=== PATIENT | male | born 1990 | race Caucasian/White ===

== ENCOUNTER 2017-10-30 01:40 | Emergency (ER) | payer BC ==
--- NOTE | 2017-10-30 02:40 | EDPHYS ---
Physician Documentation [facility] Name: Justin Smith Age: 27 yrs Sex: Male : 1990 Arrival Date: 10/30/2017 Time: 01:42 Bed 18 Private MD: ED Physician Elia Martinez HPI: 10/30 02:20 This 27 yrs old Male presents to ER via Ambulatory with complaints of Painful jr8 Cough. 02:20 Onset: The symptoms/episode began/occurred gradually, 3 day(s) ago. Severity of jr8 symptoms: At their worst the symptoms were mild, in the emergency department the symptoms are unchanged. Modifying factors: The symptoms are alleviated by nothing, the symptoms are aggravated by nothing. Associated signs and symptoms: Pertinent positives: sore throat. The patient has not experienced similar symptoms in the past. The patient has not recently seen a physician. Historical: - Allergies: 01:56 No Known Allergies; ak1 - Home Meds: 01:56 None [Active]; ak1 - PMHx: 01:56 Kidney stones; Migraine; ak1 - PSHx: 01:56 None; ak1 - Immunization history:: Adult Immunizations unknown. - Social history:: Smoking status: Patient uses tobacco products, smokes one-half pack cigarettes per day. - Ebola Screening: : No symptoms or risks identified at this time. ROS: 02:20 Eyes: Negative for injury, pain, redness, and discharge, ENT: Negative for injury, jr8 pain, and discharge, Neck: Negative for injury, pain, and swelling, Cardiovascular: Negative for chest pain, palpitations, and edema, Abdomen/GI: Negative for abdominal pain, nausea, vomiting, diarrhea, and constipation, Back: Negative for injury and pain, MS/Extremity: Negative for injury and deformity, Skin: Negative for injury, rash, and discoloration, Neuro: Negative for headache, weakness, numbness, tingling, and seizure. 02:20 Respiratory: Positive for cough, shortness of breath, Negative for dyspnea on exertion. Exam: 02:20 Eyes: Pupils equal round and reactive to light, extra-ocular motions intact. Lids and jr8 lashes normal. Conjunctiva and sclera are non-icteric and not injected. Cornea within normal limits. Periorbital areas with no swelling, redness, or edema. ENT: Nares patent. No nasal discharge, no septal abnormalities noted. Tympanic membranes are normal and external auditory canals are clear. Oropharynx with no redness, swelling, or masses, exudates, or evidence of obstruction, uvula midline. Mucous membranes moist. Neck: Trachea midline, no thyromegaly or masses palpated, and no cervical lymphadenopathy. Supple, full range of motion without nuchal rigidity, or vertebral point tenderness. No Meningismus. Cardiovascular: Regular rate and rhythm with a normal S1 and S2. No gallops, murmurs, or rubs. Normal PMI, no JVD. No pulse deficits. Respiratory: Lungs have equal breath sounds bilaterally, clear to auscultation and percussion. No rales, rhonchi or wheezes noted. No increased work of breathing, no retractions or nasal flaring. Abdomen/GI: Soft, non-tender, with normal bowel sounds. No distension or tympany. No guarding or rebound. No evidence of tenderness throughout. Back: No spinal tenderness. No costovertebral tenderness. Full range of motion. Skin: Warm, dry with normal turgor. Normal color with no rashes, no lesions, and no evidence of cellulitis. MS/ Extremity: Pulses equal, no cyanosis. Neurovascular intact. Full, normal range of motion. Neuro: Awake and alert, GCS 15, oriented to person, place, time, and situation. Cranial nerves II-XII grossly intact. Motor strength 5/5 in all extremities. Sensory grossly intact. Cerebellar exam normal. Normal gait. Vital Signs: 01:54 BP 131 / 98; Pulse 78; Resp 20; Temp 98.1; Pulse Ox 98% on R/A; Weight 88.45 kg (R); ak1 Height 5 ft. 7 in. (170.18 cm) (R); Pain 2/10; 01:54 Body Mass Index 30.54 (88.45 kg, 170.18 cm) ak1 MDM: 01:54 Patient medically screened. jr8 02:38 Data reviewed: vital signs, nurses notes, radiologic studies, plain films, and as a jr8 result, I will discharge patient. Data interpreted: Pulse oximetry: on room air is 98 %. Interpretation: normal. Counseling: I had a detailed discussion with the patient and/or guardian regarding: the historical points, exam findings, and any diagnostic results supporting the discharge/admit diagnosis, radiology results, the need for outpatient follow up, a family practitioner, to return to the emergency department if symptoms worsen or persist or if there are any questions or concerns that arise at home. 10/30 02:14 Order name: XRAY Chest (1 view) jr8 Administered Medications: 02:50 Drug: Tussionex Pennkinetic ER 5 ml Route: PO; ao 02:50 Follow up: Response: No adverse reaction ao Disposition: 09:00 Co-signature as Attending Physician, Elia Martinez MD I agree with the assessment and [facility] plan of care. Disposition: 10/30/17 02:39 Discharged to Home. Impression: Acute laryngitis, Acute bronchitis. - Condition is Stable. - Discharge Instructions: Acute Bronchitis, Laryngitis, Upper Respiratory Infection, Adult. - Prescriptions for Prednisone 20 mg Oral Tablet - take 1 tablet by ORAL route once daily for 5 days; 5 tablet. Albuterol Sulfate 2.5 mg /3 mL (0.083 %) Inhalation Solution for Nebulization - inhale 1 unit by NEBULIZATION route every 8 hours As needed; 1 box. Guaifenesin AC 10- 100 mg/5 mL Oral Liquid - take 10 milliliter by ORAL route every 4 hours As needed; 240 milliliter. Tessalon Perles 100 mg Oral Capsule - take 1 capsule by ORAL route every 8 hours As needed; 15 capsule. - Medication Reconciliation Form, Thank You Letter, Antibiotic Education, Prescription Opioid Use, Work release form form. - Follow up: Private Physician; When: 1 week; Reason: Recheck today's complaints, Continuance of care, Re-evaluation by your physician. - Problem is new. - Symptoms have improved. Signatures: Dispatcher [employer] EDAR Elia Martinez MD MD cha Roszak, Josh, PA PA jr8 Milana Ramirez RN RN ak1 Etienne Joseph, RN RN ao Corrections: (The following items were deleted from the chart) 02:55 02:39 10/30/2017 02:39 Discharged to Home. Impression: Acute laryngitis; Acute ao bronchitis. Condition is Stable. Forms are Medication Reconciliation Form, Thank You Letter, Antibiotic Education, Prescription Opioid Use. Follow up: Private Physician; When: 1 week; Reason: Recheck today's complaints, Continuance of care, Re-evaluation by your physician. Problem is new. Symptoms have improved. jr8
--- NOTE | 2017-10-30 02:40 | ER ---
Nurse's Notes [facility] Name: Justin Smith Age: 27 yrs Sex: Male : 1990 Arrival Date: 10/30/2017 Time: 01:42 Bed 18 Private MD: Diagnosis: Acute laryngitis;Acute bronchitis Presentation: 10/30 01:54 Presenting complaint: Patient states: cough and congestion X3 days, SOB X2days ak1 increased at night. pt c/o back pain with cough. Transition of care: patient was not received from another setting of care. Onset of symptoms is unknown. Risk Assessment: Do you want to hurt yourself or someone else? Patient reports no desire to harm self or others. Initial Sepsis Screen: Does the patient meet any 2 criteria? No. Patient's initial sepsis screen is negative. Does the patient have a suspected source of infection? No. Patient's initial sepsis screen is negative. Care prior to arrival: None. 01:54 Method Of Arrival: Ambulatory ak1 01:54 Acuity: IFEANYI 3 ak1 Triage Assessment: 01:56 General: Appears in no apparent distress. Behavior is calm, cooperative. Pain: ak1 Complains of pain in back. EENT: Denies nasal congestion. Neuro: No deficits noted. Cardiovascular: No deficits noted. Respiratory: Reports shortness of breath cough that is. GI: No signs and/or symptoms were reported involving the gastrointestinal system. : No signs and/or symptoms were reported regarding the genitourinary system. Derm: No signs and/or symptoms reported regarding the dermatologic system. Historical: - Allergies: 01:56 No Known Allergies; ak1 - Home Meds: 01:56 None [Active]; ak1 - PMHx: 01:56 Kidney stones; Migraine; ak1 - PSHx: 01:56 None; ak1 - Immunization history:: Adult Immunizations unknown. - Social history:: Smoking status: Patient uses tobacco products, smokes one-half pack cigarettes per day. - Ebola Screening: : No symptoms or risks identified at this time. Screenin:02 Abuse screen: Denies threats or abuse. Denies injuries from another. Nutritional ak1 screening: No deficits noted. Tuberculosis screening: No symptoms or risk factors identified. Fall Risk None identified. Assessment: 02:15 General: Appears in no apparent distress. comfortable, Behavior is calm, cooperative, ao appropriate for age. Pain: Complains of pain in Chest from cought. Neuro: Level of Consciousness is awake, alert, obeys commands, Oriented to person, place, time, situation, Appropriate for age Moves all extremities. Full function Speech is normal, Facial symmetry appears normal. Cardiovascular: Capillary refill < 3 seconds Patient's skin is warm and dry. Respiratory: Airway is patent Respiratory effort is even, unlabored, Respiratory pattern is regular, symmetrical. GI: Abdomen is non-distended. : No signs and/or symptoms were reported regarding the genitourinary system. EENT: No signs and/or symptoms were reported regarding the EENT system. Derm: Skin is intact. Musculoskeletal: No signs and/or symptoms reported regarding the musculoskeletal system. Vital Signs: 01:54 BP 131 / 98; Pulse 78; Resp 20; Temp 98.1; Pulse Ox 98% on R/A; Weight 88.45 kg (R); ak1 Height 5 ft. 7 in. (170.18 cm) (R); Pain 2/10; 01:54 Body Mass Index 30.54 (88.45 kg, 170.18 cm) ak1 ED Course: 01:42 Patient arrived in ED. es 01:54 Manohar Gold PA is PHCP. jr8 01:54 Elia Martinez MD is Attending Physician. jr8 01:55 Triage completed. ak1 01:56 Arm band placed on Patient placed in an exam room, on a stretcher, on pulse oximetry, ak1 Patient notified of wait time. 02:02 Patient has correct armband on for positive identification. Bed in low position. Call ak1 light in reach. Side rails up X 1. Adult w/ patient. Pulse ox on. NIBP on. 02:12 Etienne Joseph, RN is Primary Nurse. ao 02:17 X-ray completed. Portable x-ray completed in exam room. Patient tolerated procedure kw well. 02:19 XRAY Chest (1 view) In Process Unspecified. EDMS Administered Medications: 02:50 Drug: Tussionex Pennkinetic ER 5 ml Route: PO; ao 02:50 Follow up: Response: No adverse reaction ao Outcome: 02:39 Discharge ordered by . jr8 02:55 Patient left the ED. ao Signatures: Dispatcher [employer] EDMS [place], Claire es Saunders, Linda kw Roszak, Manohar, PA PA jr8 Milana Ramirez, RN RN ak1 Etienne Joseph, RN RN ao
[2017-10-30] MEDS ORDERED: HYDROCODONE/CHLORPHEN 5 ML/OSYR ONE (02:45)
[2017-10-30 03:06] VITALS: BP 131/98; TEMP 98.1; O2SAT 98
--- NOTE | 2017-10-30 07:17 | RAD REPORT ---
EXAM DESCRIPTION: RAD - Chest Single View - 10/30/2017 2:20 am CLINICAL HISTORY: Cough and congestion, shortness of breath COMPARISON: June 2016 TECHNIQUE: AP portable chest image was obtained 0214 hours . FINDINGS: No failure, infiltrate or mass. Lung markings are mildly prominent but unchanged from Kle[place] h 2017. Heart and vasculature are normal. No measurable pleural effusion and no pneumothorax. No anaylei s bony abnormality seen. No acute aortic findings suspected. IMPRESSION: No acute cardiopulmonary process. No significant change from comparison.
== END 2017-10-30 02:55 | disposition home or self-care (01) ==
LOC: ER 01:40
DX: J20.9 Acute bronchitis, unspecified (principal); J04.0 Acute laryngitis; F17.210 Nicotine dependence, cigarettes, uncomplicated
CPT/HCPCS: 71045; 99283

== ENCOUNTER 2017-12-04 20:41 | Emergency (ER) | payer BC ==
[2017-12-04 21:21] LABS: Urine Blood NEGATIVE (NEG); Urine Glucose NEGATIVE (NEG); Urine Protein NEGATIVE (NEG)
[2017-12-04 21:54] LABS: Absolute Lymphocytes (CBC) 2.7 K/uL (0.7-4.9); Absolute Monocytes 0.6 K/uL (0.1-1.3); Absolute Neutrophil 5.3 K/uL (1.8-8.0); Basophils % 0.6 % (0-1.3); Eosinophils % 4.1 % (0-4.4); Hematocrit 40.5 % (39.6-49.0); MCH 31.9 pg (27.0-35.0); MCV 91.3 fL (80-100); MPV 7.5 fL (7.6-11.3); Monocytes % 6.2 % (3.3-12.3); RBC Red Blood Cell Count 4.44 M/uL (4.33-5.43)
--- NOTE | 2017-12-04 22:08 | RAD REPORT ---
EXAM DESCRIPTION: RAD - Chest Pa And Lat (2 Views) - 12/04/2017 9:43 pm CLINICAL HISTORY: Chest pain COMPARISON: October 30 TECHNIQUE: PA and lateral views of the chest were obtained. FINDINGS: The lungs are clear of a peripheral mass, consolidation or failure finding. Interstitial m arkings are prominent but similar to the comparison study. Trachea is midline. Heart size is normal and central vasculature is within normal limits. No pleural effusion or pneumothorax seen. No acut e bony finding noted. No aortic abnormality. IMPRESSION: No acute cardiopulmonary process. Prominent interstitial lung pattern similar to comparison.
[2017-12-04 22:23] LABS: Potassium 4.1 mmol/L (3.5-5.1)
--- NOTE | 2017-12-04 22:59 | EDPHYS ---
Physician Documentation [facility] Name: Justin Smith Age: 27 yrs Sex: Male : 1990 Arrival Date: 12/04/2017 Time: 20:44 Bed 24 Private MD: ED Physician Elia Martinez HPI: 12/04 21:40 This 27 yrs old Male presents to ER via Ambulatory with complaints of Chest snw Pain. 21:40 Onset: The symptoms/episode began/occurred suddenly, resolves after a few minutes, this snw is not the first time this has occurred but scared pt today second to intensity. Associated signs and symptoms: Pertinent positives: chest pain. Modifying factors: The patient symptoms are alleviated by nothing, the patient symptoms are aggravated by nothing. The patient has experienced similar episodes in the past. The patient has not recently seen a physician. Historical: - Allergies: 20:47 No Known Allergies; la1 - PMHx: 20:47 Kidney stones; Migraine; la1 - PSHx: 20:47 None; la1 - Immunization history:: Adult Immunizations up to date. - Social history:: Smoking status: Patient uses tobacco products, denies chronic smoking, but will smoke occasionally. - Ebola Screening: : No symptoms or risks identified at this time. ROS: 21:40 Constitutional: Negative for fever, chills, and weight loss, Eyes: Negative for injury, snw pain, redness, and discharge, ENT: Negative for injury, pain, and discharge, Neck: Negative for injury, pain, and swelling, Respiratory: Negative for shortness of breath, cough, wheezing, and pleuritic chest pain, Abdomen/GI: Negative for abdominal pain, nausea, vomiting, diarrhea, and constipation, Back: Negative for injury and pain, : Negative for injury, bleeding, discharge, and swelling, MS/Extremity: Negative for injury and deformity, Skin: Negative for injury, rash, and discoloration, Neuro: Negative for headache, weakness, numbness, tingling, and seizure. 21:40 Cardiovascular: Positive for chest pain, Negative for edema, orthopnea, palpitations. Exam: 21:39 Constitutional: This is a well developed, well nourished patient who is awake, alert, snw and in no acute distress. Head/Face: Normocephalic, atraumatic. Eyes: Pupils equal round and reactive to light, extra-ocular motions intact. Lids and lashes normal. Conjunctiva and sclera are non-icteric and not injected. Cornea within normal limits. Periorbital areas with no swelling, redness, or edema. ENT: Nares patent. No nasal discharge, no septal abnormalities noted. Tympanic membranes are normal and external auditory canals are clear. Oropharynx with no redness, swelling, or masses, exudates, or evidence of obstruction, uvula midline. Mucous membranes moist. Neck: Trachea midline, no thyromegaly or masses palpated, and no cervical lymphadenopathy. Supple, full range of motion without nuchal rigidity, or vertebral point tenderness. No Meningismus. Chest/axilla: Normal chest wall appearance and motion. Nontender with no deformity. No lesions are appreciated. Cardiovascular: Regular rate and rhythm with a normal S1 and S2. No gallops, murmurs, or rubs. Normal PMI, no JVD. No pulse deficits. Respiratory: Lungs have equal breath sounds bilaterally, clear to auscultation and percussion. No rales, rhonchi or wheezes noted. No increased work of breathing, no retractions or nasal flaring. Abdomen/GI: Soft, non-tender, with normal bowel sounds. No distension or tympany. No guarding or rebound. No evidence of tenderness throughout. Back: No spinal tenderness. No costovertebral tenderness. Full range of motion. Skin: Warm, dry with normal turgor. Normal color with no rashes, no lesions, and no evidence of cellulitis. MS/ Extremity: Pulses equal, no cyanosis. Neurovascular intact. Full, normal range of motion. Neuro: Awake and alert, GCS 15, oriented to person, place, time, and situation. Cranial nerves II-XII grossly intact. Motor strength 5/5 in all extremities. Sensory grossly intact. Cerebellar exam normal. Normal gait. Psych: Awake, alert, with orientation to person, place and time. Behavior, mood, and affect are within normal limits. Vital Signs: 20:47 BP 134 / 89; Pulse 87; Resp 19; Temp 98.2(TE); Pulse Ox 100% on R/A; Weight 86.18 kg; la1 Height 5 ft. 7 in. (170.18 cm); 22:01 BP 119 / 81; Pulse 79; Resp 20; Pulse Ox 97% ; rv 22:56 BP 123 / 73; Pulse 76; Resp 18; Pulse Ox 97% on R/A; rv 23:13 BP 121 / 87; Pulse 84; Resp 19; Pulse Ox 97% on R/A; rv 20:47 Body Mass Index 29.76 (86.18 kg, 170.18 cm) la1 MDM: 21:17 Patient medically screened. toño 23:00 Data reviewed: vital signs, nurses notes. Data interpreted: Pulse oximetry: on room air snw is 97 %. Interpretation: normal. Counseling: I had a detailed discussion with the patient and/or guardian regarding: the historical points, exam findings, and any diagnostic results supporting the discharge/admit diagnosis, lab results, radiology results, the need for outpatient follow up, to return to the emergency department if symptoms worsen or persist or if there are any questions or concerns that arise at home, smoking cessation. Special discussion: Based on the patient's history, exam, and Dx evaluation, there is no indication for emergent intervention or inpatient Tx. It is understood by the patient/guardian that if the Sx's persist or worsen they need to return immediately for re-evaluation. I have referred the patient to see his PCP for further evaluation of high blood pressure. Based on the history and exam findings, there is no indication for further emergent testing or inpatient evaluation. I discussed with the patient/guardian the need to see the ios architect for further evaluation of the symptoms. I discussed with the patient/guardian the need to see the primary care provider for further evaluation of the symptoms. 12/04 21:17 Order name: Urine Dipstick--Ancillary (enter results); Complete Time: 21:22 mw2 12/04 21:37 Order name: Troponin (emerg Dept Use Only) snw 12/04 21:37 Order name: CPK snw 12/04 21:37 Order name: Chem 7 snw 12/04 21:37 Order name: CBC with Diff snw 12/04 21:37 Order name: Troponin (Emerg Dept Use Only); Complete Time: 22:18 EDMS 12/04 21:15 Order name: Chest Pa And Lat (2 Views) XRAY; Complete Time: 22:11 snw 12/04 21:16 Order name: EKG; Complete Time: 21:16 snw 12/04 21:16 Order name: EKG - Nurse/Tech; Complete Time: 21:20 snw 12/04 21:37 Order name: Creatine Phosphokinase; Complete Time: 22:25 EDMS 12/04 21:37 Order name: Basic Metabolic Panel; Complete Time: 22:25 EDMS 12/04 21:37 Order name: CBC with Automated Diff; Complete Time: 22:11 EDMS Administered Medications: No medications were administered Disposition: 12/05 14:01 Co-signature as Attending Physician, Elia Martinez MD I agree with the assessment and toño plan of care. Disposition: 12/04/17 22:59 Discharged to Home. Impression: Chest pain, unspecified. - Condition is Stable. - Discharge Instructions: Nonspecific Chest Pain, Smoking Hazards. - Prescriptions for Diclofenac Sodium 75 mg Oral Tablet Sustained Release - take 1 tablet by ORAL route 2 times per day; 30 tablet. orphenadrine citrate 100 mg Oral Tablet Sustained Release - take 1 tablet by ORAL route 2 times per day As needed; 20 tablet. - Work release form, Medication Reconciliation Form, Thank You Letter, Antibiotic Education, Prescription Opioid Use form. - Follow up: Private Physician; When: 1 - 2 days; Reason: Recheck today's complaints, Continuance of care, Re-evaluation by your physician. Follow up: Emergency Department; When: As needed; Reason: Worsening of condition. Signatures: Dispatcher [employer] Elia Triplett MD MD cha Therrien, Shelly, SUPERVISOR ELECTRONICS ASSEMBLY-C SUPERVISOR ELECTRONICS ASSEMBLY-Csnw Aravind Villanueva RN RN laReinaldo Thorpe RN RN rv Corrections: (The following items were deleted from the chart) 12/04 23:30 22:59 12/04/2017 22:59 Discharged to Home. Impression: Chest pain, unspecified. rv Condition is Stable. Forms are Medication Reconciliation Form, Thank You Letter, Antibiotic Education, Prescription Opioid Use. Follow up: Private Physician; When: 1 - 2 days; Reason: Recheck today's complaints, Continuance of care, Re-evaluation by your physician. Follow up: Emergency Department; When: As needed; Reason: Worsening of condition. snw
--- NOTE | 2017-12-04 22:59 | ER ---
Nurse's Notes [facility] Name: Justin Smith Age: 27 yrs Sex: Male : 1990 Arrival Date: 12/04/2017 Time: 20:44 Bed 24 Private MD: Diagnosis: Chest pain, unspecified Presentation: 12/04 20:46 Presenting complaint: Patient states: about 3 times in the last few days I get a pain la1 in my chest that feels like some one punched me in the chest for about a minute then it goes away. Transition of care: patient was not received from another setting of care. Onset of symptoms was December 04, 2017. Risk Assessment: Do you want to hurt yourself or someone else? Patient reports no desire to harm self or others. Initial Sepsis Screen: Does the patient meet any 2 criteria? No. Patient's initial sepsis screen is negative. Does the patient have a suspected source of infection? No. Patient's initial sepsis screen is negative. Care prior to arrival: None. 20:46 Method Of Arrival: Ambulatory la1 20:46 Acuity: IFEANYI 3 la1 Historical: - Allergies: 20:47 No Known Allergies; la1 - PMHx: 20:47 Kidney stones; Migraine; la1 - PSHx: 20:47 None; la1 - Immunization history:: Adult Immunizations up to date. - Social history:: Smoking status: Patient uses tobacco products, denies chronic smoking, but will smoke occasionally. - Ebola Screening: : No symptoms or risks identified at this time. Screenin:21 Abuse screen: Denies threats or abuse. Denies injuries from another. Nutritional rv screening: No deficits noted. Tuberculosis screening: No symptoms or risk factors identified. Fall Risk None identified. Assessment: 21:20 General: Appears in no apparent distress. comfortable, Behavior is calm, cooperative. rv Pain: Complains of pain in chest Pain does not radiate. Pain began 2-3 days ago. Neuro: Level of Consciousness is awake, alert, obeys commands, Oriented to person, place, time, situation. Cardiovascular: Heart tones S1 S2 present. Respiratory: Airway is patent. GI: No signs and/or symptoms were reported involving the gastrointestinal system. : No signs and/or symptoms were reported regarding the genitourinary system. EENT: No signs and/or symptoms were reported regarding the EENT system. Derm: Skin is intact. Vital Signs: 20:47 BP 134 / 89; Pulse 87; Resp 19; Temp 98.2(TE); Pulse Ox 100% on R/A; Weight 86.18 kg; la1 Height 5 ft. 7 in. (170.18 cm); 22:01 BP 119 / 81; Pulse 79; Resp 20; Pulse Ox 97% ; rv 22:56 BP 123 / 73; Pulse 76; Resp 18; Pulse Ox 97% on R/A; rv 23:13 BP 121 / 87; Pulse 84; Resp 19; Pulse Ox 97% on R/A; rv 20:47 Body Mass Index 29.76 (86.18 kg, 170.18 cm) la1 ED Course: 20:44 Patient arrived in ED. es 20:47 Triage completed. la1 20:47 Arm band placed on right wrist. la1 21:15 [facility]augh [facility]C [facility] snw 21:15 Elia Martinez MD is Attending Physician. snw 21:20 Urine Dipstick--Ancillary (enter results) Sent. rv 21:21 Patient has correct armband on for positive identification. Placed in gown. Bed in low rv position. Call light in reach. Side rails up X 1. Adult w/ patient. traffic monitor specialist on. Pulse ox on. NIBP on. 21:22 Patient maintains SpO2 saturation greater than 95% on room air. rv 21:22 Inserted saline lock: 20 gauge in left antecubital area, using aseptic technique. rv 21:39 Patient moved to radiology via wheelchair. ml 21:39 X-ray completed. Patient tolerated procedure well. ml 21:41 Chest Pa And Lat (2 Views) XRAY In Process Unspecified. EDMS 23:13 No provider procedures requiring assistance completed. IV discontinued, bleeding rv controlled, No redness/swelling at site. Pressure dressing applied. Administered Medications: No medications were administered Outcome: 22:59 Discharge ordered by . snw 23:14 Discharged to home ambulatory. rv 23:14 Condition: good 23:14 Discharge instructions given to patient. 23:30 Patient left the ED. rv Signatures: Dispatcher [employer] EDMS Anni Baugh FNP-C ZIGZAG MACHINE OPERATOR-Csnw Claire Hughes Melissa ml Attema, Lee, RN RN la1 Reinaldo Hernnadez, RN RN rv
[2017-12-04 23:34] VITALS: TEMP 98.2
[2017-12-04 23:35] VITALS: O2SAT 97
[2017-12-04 23:38] VITALS: BP 121/87
--- NOTE | 2017-12-05 06:52 | EKG ---
Test Date: 2017-12-04 Test Time: 20:55:14 [employer] Sales Rep: MEASUREMENT RESULTS: Intervals: Rate: 82 AR: 130 QRSD: 100 QT: 356 QTc: 415 Bradshaw: P: 44 AR: 130 QRS: 56 T: 44 INTERPRETIVE STATEMENTS: Normal sinus rhythm Normal ECG Compared to ECG 07/23/2014 15:11:35 No significant changes Electronically Signed On 12-05-17 06:51:31 CDT by Edy Farfan
== END 2017-12-04 23:30 | disposition home or self-care (01) ==
LOC: ER 20:41
DX: R07.9 Chest pain, unspecified (principal)
CPT/HCPCS: 36415; 71046; 80048; 81003; 82550; 84484; 85025; 93005; 99285

== ENCOUNTER 2018-01-02 10:11 | Emergency (ER) | payer BC ==
[2018-01-02] MEDS ORDERED: NA CHLORIDE 0.9% 1,000 ML ONE (13:17)
[2018-01-02 13:22] LABS: Absolute Monocytes 0.3 K/uL (0.1-1.3); Absolute Neutrophil 4.7 K/uL (1.8-8.0); Basophils % 0.5 % (0-1.3); Eosinophils % 3.5 % (0-4.4); Hematocrit 43.2 % (39.6-49.0); Lymphocytes % 27.8 % (15.3-44.8); MCH 31.8 pg (27.0-35.0); MCV 91.2 fL (80-100); MPV 7.2 fL (7.6-11.3); Monocytes % 4.4 % (3.3-12.3); RBC Red Blood Cell Count 4.73 M/uL (4.33-5.43)
[2018-01-02 13:46] LABS: ALT/SGPT 24 U/L (12-78); AST/SGOT 17 U/L (15-37); Albumin 4.1 g/dL (3.4-5.0); Alkaline Phosphatase 91 U/L (45-117); Amylase Level 51 U/L (25-115); BUN Blood Urea Nitrogen 10 mg/dL (7-18); Bicarbonate 26 mmol/L (21-32); Bilirubin Direct 0.1 mg/dL (0-0.2); Bilirubin Total 0.7 mg/dL (0.2-1.0); Glucose Level 108 mg/dL (74-106); Lipase 126 U/L (73-393); Potassium 3.7 mmol/L (3.5-5.1); Protein, Total 7.7 g/dL (6.4-8.2); Sodium Level 140 mmol/L (136-145)
[2018-01-02 13:49] LABS: Urine Bacteria NONE SEEN /HPF (NONE SEEN); Urine Culture Reflex Order NOT NEEDED; Urine RBC NONE SEEN /HPF (NONE SEEN)
--- NOTE | 2018-01-02 14:18 | RAD REPORT ---
EXAM DESCRIPTION: CT - Abdomen Pelvis W Contrast - 01/02/2018 2:05 pm CLINICAL HISTORY: Left-sided abdominal pain, nausea and diarrhea COMPARISON: None. TECHNIQUE: Biphasic, helical CT imaging of the abdomen and pelvis was performed following 100 ml non -ionic IV contrast. No oral contrast was given. All CT scans are performed using dose optimization technique as appropriate and may include automated exposure control or mA/KV adjustment according to patient size. FINDINGS: No suspicious findings in the lung bases. The liver, spleen, and pancreas show no suspicious findings. Gallbladder and biliary tree are also wi thout suspicious finding. Symmetric renal function is seen with no hydronephrosis or suspicious renal mass. No pyelonephritis o r acute renal parenchymal process. Urinary bladder shows no suspicious findings. Prostate gland and s eminal vesicles are normal range. No dilated bowel loops or bowel wall thickening. No suspicion for appendicitis. The patient has a few small mesenteric lymph nodes present. Moderate stool volume is present in the colon. There is fluid retained within the stomach. No free air, free fluid or inflammatory stranding. No hernia, mass or b ulky lymphadenopathy. The urinary bladder is without significant finding. No adrenal abnormality. No suspicious bony findings. IMPRESSION: Contrast enhanced CT abdomen and pelvis showing no significant or suspicious finding. Nonspecific gastroenteritis is possible.
[2018-01-02 14:21] LABS: Urine Blood TRACE (NEG); Urine Glucose NEGATIVE (NEG); Urine Protein NEGATIVE (NEG); Urine Specific Gravity 1.015 (1.005-1.030); Urine pH 6.5 (5.0-7.0)
--- NOTE | 2018-01-02 14:46 | ER ---
Nurse's Notes [facility] Name: Justin Smith Age: 27 yrs Sex: Male : 1990 Arrival Date: 01/02/2018 Time: 10:13 Bed Treatment Private MD: out of town, doctor Diagnosis: Abdominal tenderness;Vomiting;Diarrhea, unspecified Presentation: 01/02 10:46 Presenting complaint: Patient states: L sided abdominal pain, nausea, and diarrhea x 3 ph days, denies vomiting or fever, states, " I have had kidney stones before but this feels different. Transition of care: patient was not received from another setting of care. Onset of symptoms was January 02, 2018. Risk Assessment: Do you want to hurt yourself or someone else? Patient reports no desire to harm self or others. Initial Sepsis Screen: Does the patient meet any 2 criteria? No. Patient's initial sepsis screen is negative. Does the patient have a suspected source of infection? No. Patient's initial sepsis screen is negative. Care prior to arrival: None. 10:46 Method Of Arrival: Ambulatory ph 10:46 Acuity: IFEANYI 3 ph Historical: - Allergies: 10:48 No Known Allergies; ph - Home Meds: 10:48 None [Active]; ph - PMHx: 10:48 Kidney stones; Migraine; ph - PSHx: 10:48 None; ph - Immunization history:: Adult Immunizations. - Social history:: Smoking status: Patient/guardian denies using tobacco. - Family history:: not pertinent. - Ebola Screening: : Patient negative for fever greater than or equal to 101.5 degrees Fahrenheit, and additional compatible Ebola Virus Disease symptoms Patient denies exposure to infectious person Patient denies travel to an Ebola-affected area in the 21 days before illness onset No symptoms or risks identified at this time. Screenin:10 Abuse screen: Denies threats or abuse. Denies injuries from another. Nutritional iw screening: No deficits noted. Tuberculosis screening: No symptoms or risk factors identified. 13:15 Fall Risk None identified. iw Assessment: 13:09 General: Appears in no apparent distress. Behavior is calm, cooperative. Pain: iw Complains of pain in left upper quadrant. Neuro: Level of Consciousness is awake, alert, obeys commands, Oriented to person, place, time, situation, Moves all extremities. Full function. Respiratory: Respiratory effort is even, unlabored. GI: Bowel sounds present X 4 quads. Abdomen is tender to palpation X 4 quads. 13:48 Reassessment: Patient appears in no apparent distress at this time. Patient and/or iw family updated on plan of care and expected duration. Pain level reassessed. Patient is alert, oriented x 3, equal unlabored respirations, skin warm/dry/pink. 14:31 Reassessment: Patient appears in no apparent distress at this time. Patient and/or iw family updated on plan of care and expected duration. Pain level reassessed. Patient is alert, oriented x 3, equal unlabored respirations, skin warm/dry/pink. Vital Signs: 10:47 BP 122 / 81; Pulse 72; Resp 16; Temp 99.0(TE); Pulse Ox 98% on R/A; Weight 86.18 kg; ph Height 5 ft. 7 in. (170.18 cm); Pain 4/10; 14:31 BP 127 / 68; Pulse 71; Resp 16; Pulse Ox 98% on R/A; Pain 0/10; iw 10:47 Body Mass Index 29.76 (86.18 kg, 170.18 cm) ph ED Course: 10:13 Patient arrived in ED. sb2 10:14 out of town, doctor is Private Physician. sb2 10:47 Triage completed. ph 10:48 Arm band placed on Patient placed in waiting room, Patient notified of wait time. ph 12:53 Temi Ott, RN is Primary Nurse. iw 12:54 Eila Martinez MD is Attending Physician. [facility] 13:09 Radiology exam delayed due to lab results not completed at this time. (BUN/Creatinine). 13:09 Initial lab(s) drawn, by ny, sent to lab. Inserted saline lock: 20 gauge in right iw antecubital area, using aseptic technique. Blood collected. 14:03 CT completed. Patient tolerated procedure well. Patient moved to CT via wheelchair. Patient moved back from CT. 14:06 CT Abd/Pelvis - W/Contrast: iv only, no oral In Process Unspecified. EDMS 14:31 Patient has correct armband on for positive identification. iw 14:55 No provider procedures requiring assistance completed. IV discontinued, intact, iw bleeding controlled, No redness/swelling at site. Pressure dressing applied. Administered Medications: 13:16 Drug: NS 0.9% 1000 ml Route: IV; Rate: 1 bolus; Site: right antecubital; iw 14:15 Follow up: IV Status: Completed infusion iw Outcome: 14:46 Discharge ordered by . toño 14:55 Discharged to home ambulatory. iw 14:55 Condition: good 14:55 Discharge instructions given to patient, Instructed on discharge instructions, follow up and referral plans. medication usage, Demonstrated understanding of instructions, follow-up care, medications, Prescriptions given X 3. 14:56 Patient left the ED. iw Signatures: Dispatcher [employer] EDUT Elia Martinez MD MD cha Jones, Temi Velázquez RN RN iw Wendie Brady RN RN Roby, Alexa gillespie2
--- NOTE | 2018-01-02 14:46 | EDPHYS ---
Physician Documentation [facility] Name: Justin Smith Age: 27 yrs Sex: Male : 1990 Arrival Date: 01/02/2018 Time: 10:13 Bed Treatment Private MD: out of town, doctor ED Physician Elia Martinez HPI: 01/02 12:59 This 27 yrs old Male presents to ER via Ambulatory with complaints of toño Abdominal Pain, Nausea. 12:59 The patient presents to the emergency department with nausea, abdominal pain, of the toño left upper quadrant. Onset: The symptoms/episode began/occurred 2 day(s) ago. Possible causes: unknown. The symptoms are aggravated by movement, pressure, The symptoms are alleviated by nothing. remaining still. Associated signs and symptoms: The patient has no apparent associated signs or symptoms. Severity of symptoms: At their worst the symptoms were mild in the emergency department the symptoms are unchanged Pain is currently a 8 / 10. Historical: - Allergies: 10:48 No Known Allergies; ph - Home Meds: 10:48 None [Active]; ph - PMHx: 10:48 Kidney stones; Migraine; ph - PSHx: 10:48 None; ph - Immunization history:: Adult Immunizations. - Social history:: Smoking status: Patient/guardian denies using tobacco. - Family history:: not pertinent. - Ebola Screening: : Patient negative for fever greater than or equal to 101.5 degrees Fahrenheit, and additional compatible Ebola Virus Disease symptoms Patient denies exposure to infectious person Patient denies travel to an Ebola-affected area in the 21 days before illness onset No symptoms or risks identified at this time. ROS: 12:59 Constitutional: Negative for fever, chills, and weight loss, Eyes: Negative for injury, toño pain, redness, and discharge, ENT: Negative for injury, pain, and discharge, Neck: Negative for injury, pain, and swelling, Cardiovascular: Negative for chest pain, palpitations, and edema, Respiratory: Negative for shortness of breath, cough, wheezing, and pleuritic chest pain, Back: Negative for injury and pain, : Negative for injury, bleeding, discharge, and swelling, MS/Extremity: Negative for injury and deformity, Skin: Negative for injury, rash, and discoloration, Neuro: Negative for headache, weakness, numbness, tingling, and seizure. 12:59 Abdomen/GI: Positive for abdominal pain, nausea, vomiting. Exam: 12:59 Constitutional: This is a well developed, well nourished patient who is awake, alert, toño and in no acute distress. Head/Face: Normocephalic, atraumatic. Eyes: Pupils equal round and reactive to light, extra-ocular motions intact. Lids and lashes normal. Conjunctiva and sclera are non-icteric and not injected. Cornea within normal limits. Periorbital areas with no swelling, redness, or edema. ENT: Nares patent. No nasal discharge, no septal abnormalities noted. Tympanic membranes are normal and external auditory canals are clear. Oropharynx with no redness, swelling, or masses, exudates, or evidence of obstruction, uvula midline. Mucous membranes moist. Neck: Trachea midline, no thyromegaly or masses palpated, and no cervical lymphadenopathy. Supple, full range of motion without nuchal rigidity, or vertebral point tenderness. No Meningismus. Chest/axilla: Normal chest wall appearance and motion. Nontender with no deformity. No lesions are appreciated. Cardiovascular: Regular rate and rhythm with a normal S1 and S2. No gallops, murmurs, or rubs. Normal PMI, no JVD. No pulse deficits. Respiratory: Lungs have equal breath sounds bilaterally, clear to auscultation and percussion. No rales, rhonchi or wheezes noted. No increased work of breathing, no retractions or nasal flaring. Back: No spinal tenderness. No costovertebral tenderness. Full range of motion. Male : Normal genitalia with no discharge or lesions. Skin: Warm, dry with normal turgor. Normal color with no rashes, no lesions, and no evidence of cellulitis. 12:59 Abdomen/GI: Inspection: abdomen appears normal, Bowel sounds: normal. 12:59 Abdomen/GI: Palpation: mild abdominal tenderness, in the left upper quadrant, Liver: no appreciated palpable abnormalities, Hernia: not appreciated. Vital Signs: 10:47 BP 122 / 81; Pulse 72; Resp 16; Temp 99.0(TE); Pulse Ox 98% on R/A; Weight 86.18 kg; ph Height 5 ft. 7 in. (170.18 cm); Pain 4/10; 14:31 BP 127 / 68; Pulse 71; Resp 16; Pulse Ox 98% on R/A; Pain 0/10; iw 10:47 Body Mass Index 29.76 (86.18 kg, 170.18 cm) ph MDM: 12:54 Patient medically screened. [facility] 13:01 Data reviewed: vital signs, nurses notes, lab test result(s), radiologic studies, CT toño scan. 01/02 12:58 Order name: Amylase, Serum; Complete Time: 14:44 [facility] 01/02 12:58 Order name: Basic Metabolic Panel; Complete Time: 14:44 [facility] 01/02 12:58 Order name: CBC with Diff; Complete Time: 13:38 [facility] 01/02 12:58 Order name: Creatinine for Radiology; Complete Time: 14:44 [facility] 01/02 12:58 Order name: Hepatic Function; Complete Time: 14:44 [facility] 01/02 12:58 Order name: Lipase; Complete Time: 14:44 [facility] 01/02 12:58 Order name: Urine Microscopic Only; Complete Time: 14:44 [facility] 01/02 12:58 Order name: IV Saline Lock; Complete Time: 13:09 [facility] 01/02 12:58 Order name: Labs collected and sent; Complete Time: 13:09 [facility] 01/02 12:58 Order name: Urine Dipstick-Ancillary (obtain specimen); Complete Time: 13:16 [facility] 01/02 12:58 Order name: CT Abd/Pelvis - W/Contrast: iv only, no oral; Complete Time: 14:44 [facility] 01/02 13:45 Order name: Urine Dipstick--Ancillary (enter results); Complete Time: 14:44 eb Administered Medications: 13:16 Drug: NS 0.9% 1000 ml Route: IV; Rate: 1 bolus; Site: right antecubital; iw 14:15 Follow up: IV Status: Completed infusion iw Disposition: 01/02/18 14:46 Discharged to Home. Impression: Abdominal tenderness, Vomiting, Diarrhea, unspecified. - Condition is Stable. - Discharge Instructions: Abdominal Pain, Adult, Food Choices to Help Relieve Diarrhea, Adult, Diarrhea, Adult, Nausea and Vomiting, Adult, Nausea and Vomiting, Adult, [id number], Abdominal Pain, Adult, Qbzs-sq-Wlet, Diarrhea, Adult, [id number]. - Prescriptions for Bentyl 20 mg Oral Tablet - take 1 tablet by ORAL route every 6 hours As needed; 20 tablet. Pepcid 20 mg Oral Tablet - take 1 tablet by ORAL route every 12 hours for 10 days; 20 tablet. Zofran 4 mg Oral Tablet - take 1 tablet by ORAL route every 12 hours As needed; 20 tablet. - Medication Reconciliation Form, Thank You Letter, Antibiotic Education, Prescription Opioid Use, Work release form form. - Follow up: Private Physician; When: 2 - 3 days; Reason: Recheck today's complaints, Continuance of care, Re-evaluation by your physician. - Problem is new. - Symptoms have improved. Signatures: Dispatcher [employer] EDMN Elia Martinez MD MD cha Williams, Irene, RN RN iw Wendie Brady RN RN ph Corrections: (The following items were deleted from the chart) 14:56 14:46 01/02/2018 14:46 Discharged to Home. Impression: Abdominal tenderness; Vomiting; iw Diarrhea, unspecified. Condition is Stable. Forms are Medication Reconciliation Form, Thank You Letter, Antibiotic Education, Prescription Opioid Use. Follow up: Private Physician; When: 2 - 3 days; Reason: Recheck today's complaints, Continuance of care, Re-evaluation by your physician. Problem is new. Symptoms have improved. toño
[2018-01-02 15:33] VITALS: TEMP 99; O2SAT 98
[2018-01-02 15:35] VITALS: BP 127/68
== END 2018-01-02 14:56 | disposition home or self-care (01) ==
LOC: ER 10:11
DX: R11.10 Vomiting, unspecified (principal); R19.7 Diarrhea, unspecified
CPT/HCPCS: 36415; 74177; 80048; 80076; 81003; 81015; 82150; 83690; 85025; 96360; 99284; J7030; Q9967

== ENCOUNTER 2018-07-09 06:41 | Emergency (ER) | payer BC ==
[2018-07-09] MEDS ORDERED: KETOROLAC 30 MG/ML INJ ONE (07:24)
[2018-07-09 08:11] LABS: Absolute Lymphocytes (CBC) 2.7 K/uL (0.7-4.9); Absolute Monocytes 0.6 K/uL (0.1-1.3); Absolute Neutrophil 5.5 K/uL (1.8-8.0); Basophils % 0.5 % (0-1.3); Eosinophils % 4.7 % (0-4.4); Hematocrit 43.5 % (39.6-49.0); MPV 7.5 fL (7.6-11.3); Monocytes % 6.4 % (3.3-12.3); RBC Red Blood Cell Count 4.74 M/uL (4.33-5.43)
[2018-07-09 08:16] LABS: BUN Blood Urea Nitrogen 13 mg/dL (7-18); Bicarbonate 25 mmol/L (21-32); Glucose Level 93 mg/dL (74-106); Potassium 3.9 mmol/L (3.5-5.1); Sodium Level 142 mmol/L (136-145)
--- NOTE | 2018-07-09 08:16 | RAD REPORT ---
EXAM DESCRIPTION: CT - Stone Protocol - 07/09/2018 7:43 am CLINICAL HISTORY: Flank pain. left flank pain, hx of stones COMPARISON: Abdomen Pelvis W Contrast dated 01/02/2018 TECHNIQUE: Axial images were obtained without oral or IV contrast. Lack of contrast limits solid org an and vascular assessment. The [id number] spans the entirety of the system partially obscuring uppermost abdomen and lung bases. Coronal reformatted images were obtained and reviewed. All CT scans are performed using dose optimization technique as appropriate and may include automated exposure control or mA/KV adjustment according to patient size. FINDINGS: The lower lung wilkerson are clear. Imaged portions of the liver and spleen show no suspicious findings on non-contrast imaging. The panc reas and adrenal glands are normal. No pathologic lymphadenopathy in the abdomen or pelvis. Bilateral nephrolithiasis is noted, the largest stone on the left inferior calyx measuring 5 mm. No u reter or bladder stones. No hydronephrosis. No bowel obstruction, free air, free fluid or abscess. Normal appendix noted. No significant bony abnormality. IMPRESSION: Bilateral nephrolithiasis without hydronephrosis.
--- NOTE | 2018-07-09 08:30 | EDPHYS ---
Physician Documentation [facility] Name: Justin Smith Age: 28 yrs Sex: Male : 1990 Arrival Date: 07/09/2018 Time: 06:46 Bed 5 Private MD: ED Physician Reed Ahn HPI: 07/09 07:08 This 28 yrs old Male presents to ER via Ambulatory with complaints of Back rn Pain. 07:08 The patient presents with pain that is acute. The symptoms are located in the left mid rn back. Onset: The symptoms/episode began/occurred last night. The pain does not radiate. Associated signs and symptoms: The patient has no apparent associated signs or symptoms, Pertinent negatives: abdominal pain, chest pain, fever, hematuria, incontinence. Modifying factors: The patient symptoms are alleviated by nothing, the patient symptoms are aggravated by nothing. Severity of symptoms: At their worst the symptoms were mild, in the emergency department the symptoms are unchanged. The patient has experienced similar episodes in the past. The patient has not recently seen a physician. Reports left flank pain, began last night, similar to previous kidney stones, reports pain not going away, no migration, no fever/hematuria/abd pain/chest pain/cough/sob.. Historical: - Allergies: 07:00 No Known Allergies; ak1 - Home Meds: 07:00 Propranolol Oral [Active]; ak1 - PMHx: 07:00 Kidney stones; Migraine; Anxiety; ak1 - PSHx: 07:00 None; ak1 - Immunization history:: Adult Immunizations unknown. - Social history:: Smoking status: Patient uses tobacco products, smokes one-half pack cigarettes per day. - Ebola Screening: : No symptoms or risks identified at this time. - Family history:: not pertinent. - Hospitalizations: : No recent hospitalization is reported. ROS: 07:08 Constitutional: Negative for fever, chills, and weight loss, Eyes: Negative for injury, rn pain, redness, and discharge, Neck: Negative for injury, pain, and swelling, Cardiovascular: Negative for chest pain, palpitations, and edema, Respiratory: Negative for shortness of breath, cough, wheezing, and pleuritic chest pain, Abdomen/GI: Negative for abdominal pain, nausea, vomiting, diarrhea, and constipation, Back: Negative for injury : Negative for injury, bleeding, discharge, and swelling, MS/Extremity: Negative for injury and deformity, Skin: Negative for injury, rash, and discoloration, Neuro: Negative for headache, weakness, numbness, tingling, and seizure. Exam: 07:08 Constitutional: This is a well developed, well nourished patient who is awake, alert, rn and in no acute distress. Legs crossed and using phone. Head/Face: Normocephalic, atraumatic. ENT: MMM Abdomen/GI: soft, non-tender Back: No spinal tenderness. No costovertebral tenderness. Full range of motion. Skin: Warm, dry MS/ Extremity: Pulses equal, no cyanosis. Neurovascular intact. Full, normal range of motion. Equal circumference. Neuro: Awake and alert, GCS 15, oriented to person, place, time, and situation. Motor strength 5/5 in all extremities. Sensory grossly intact. Vital Signs: 06:56 BP 111 / 90; Pulse 67; Resp 16; Temp 97.6(O); Pulse Ox 98% on R/A; Weight 86.18 kg (R); ak1 Height 5 ft. 7 in. (170.18 cm) (R); Pain 3/10; 06:56 Body Mass Index 29.76 (86.18 kg, 170.18 cm) ak1 MDM: 07:02 Patient medically screened. rn 08:28 Differential diagnosis: arthritis, Ureterolithiasis. Data reviewed: vital signs, nurses rn notes, lab test result(s), radiologic studies, CT scan, and as a result, I will discharge patient. Counseling: I had a detailed discussion with the patient and/or guardian regarding: the historical points, exam findings, and any diagnostic results supporting the discharge/admit diagnosis, lab results, radiology results, the need for outpatient follow up, to return to the emergency department if symptoms worsen or persist or if there are any questions or concerns that arise at home. Response to treatment: the patient's symptoms have mildly improved after treatment, and as a result, I will discharge patient. Special discussion: I discussed with the patient/guardian in detail that at this point there is no indication for admission to the hospital. It is understood, however, that if the symptoms persist or worsen the patient needs to return immediately for re-evaluation. ED course: Pt improved, bilateral non-obstructing nephrolithiasis, none in ureters, will dc home with return precautions, pain controlled. . 07/09 07:07 Order name: BMP; Complete Time: 08:19 rn 07/09 07:07 Order name: CBC with Diff; Complete Time: 08:16 rn 07/09 07:07 Order name: IV Start; Complete Time: 07:26 rn 07/09 07:07 Order name: CT Stone Protocol; Complete Time: 08:16 rn Administered Medications: 08:32 Not Given (Patient Refused): TORadol 30 mg IVP once sg Disposition: 07/09/18 08:30 Discharged to Home. Impression: Nephrolithiasis. - Condition is Stable. - Discharge Instructions: Kidney Stones, Dietary Guidelines to Help Prevent Kidney Stones. - Work release form, Medication Reconciliation Form, Thank You Letter, Antibiotic Education, Prescription Opioid Use form. - Follow up: Private Physician; When: As needed; Reason: Recheck today's complaints, Re-evaluation by your physician. - Problem is new. - Symptoms have improved. Signatures: Dispatcher [employer] EDSanty Thomson RN RN sg Reed Ahn MD MD rn Krenek, Amber RN RN ak1 Corrections: (The following items were deleted from the chart) 08:37 08:30 07/09/2018 08:30 Discharged to Home. Impression: Nephrolithiasis. Condition is sg Stable. Forms are Medication Reconciliation Form, Thank You Letter, Antibiotic Education, Prescription Opioid Use. Follow up: Private Physician; When: As needed; Reason: Recheck today's complaints, Re-evaluation by your physician. Problem is new. Symptoms have improved. rn
--- NOTE | 2018-07-09 08:30 | ER ---
Nurse's Notes [facility] Name: Justin Smith Age: 28 yrs Sex: Male : 1990 Arrival Date: 07/09/2018 Time: 06:46 Bed 5 Private MD: Diagnosis: Nephrolithiasis Presentation: 07/09 06:57 Presenting complaint: Patient states: left flank pain since last night. pt denies ak1 urinary s/s, denies N/V. Transition of care: patient was not received from another setting of care. Onset of symptoms was July 08, 2018. Risk Assessment: Do you want to hurt yourself or someone else? Patient reports no desire to harm self or others. Initial Sepsis Screen: Does the patient meet any 2 criteria? No. Patient's initial sepsis screen is negative. Does the patient have a suspected source of infection? No. Patient's initial sepsis screen is negative. Care prior to arrival: None. 06:57 Method Of Arrival: Ambulatory ak1 06:57 Acuity: IFEANYI 3 ak1 Triage Assessment: 07:00 General: Appears in no apparent distress. Behavior is calm, cooperative. Pain: ak1 Complains of pain in left flank. EENT: No signs and/or symptoms were reported regarding the EENT system. Neuro: No deficits noted. Cardiovascular: No deficits noted. Respiratory: No deficits noted. GI: No signs and/or symptoms were reported involving the gastrointestinal system. : No signs and/or symptoms were reported regarding the genitourinary system. Derm: No signs and/or symptoms reported regarding the dermatologic system. Musculoskeletal: pt c/o left flank pain. Historical: - Allergies: 07:00 No Known Allergies; ak1 - Home Meds: 07:00 Propranolol Oral [Active]; ak1 - PMHx: 07:00 Kidney stones; Migraine; Anxiety; ak1 - PSHx: 07:00 None; ak1 - Immunization history:: Adult Immunizations unknown. - Social history:: Smoking status: Patient uses tobacco products, smokes one-half pack cigarettes per day. - Ebola Screening: : No symptoms or risks identified at this time. - Family history:: not pertinent. - Hospitalizations: : No recent hospitalization is reported. Screenin:02 Abuse screen: Denies threats or abuse. Denies injuries from another. Nutritional ak1 screening: No deficits noted. Tuberculosis screening: No symptoms or risk factors identified. Fall Risk None identified. Assessment: 07:02 Reassessment: Patient appears in no apparent distress at this time. No changes from ak1 previously documented assessment. Patient and/or family updated on plan of care and expected duration. Pain level reassessed. Patient is alert, oriented x 3, equal unlabored respirations, skin warm/dry/pink. see triage assessment. 07:10 Reassessment: pt requesting we hold off on IV pain medication at this time, pt reports sg " Id like to have the CT Scan done first and know what is the matter, Rosendo diallo about pain meds.". 07:16 General: Appears in no apparent distress. Behavior is calm, cooperative, appropriate tw2 for age. Pain: Complains of pain in left low back and left mid back. Neuro: Level of Consciousness is awake, alert, obeys commands, Oriented to person, place, time, situation. Cardiovascular: Heart tones S1 S2 Patient's skin is warm and dry. Respiratory: Airway is patent Respiratory effort is even, unlabored, Respiratory pattern is regular, symmetrical, Breath sounds are clear bilaterally. GI: No signs and/or symptoms were reported involving the gastrointestinal system. : Reports pain in left flank(s). EENT: No signs and/or symptoms were reported regarding the EENT system. Derm: No signs and/or symptoms reported regarding the dermatologic system. Musculoskeletal: Circulation, motion, and sensation intact. 08:26 Reassessment: Patient appears in no apparent distress at this time. Patient is alert, sg oriented x 3, equal unlabored respirations, skin warm/dry/pink. at bedside updating pt on results at this time, continue to wait for pt to provide a urine specimen at this time, will continue to monitor. 08:29 Reassessment: pt offered pain medication again now that results have been reported, pt sg continues to refuse, awaiting dispo orders at this time. Vital Signs: 06:56 BP 111 / 90; Pulse 67; Resp 16; Temp 97.6(O); Pulse Ox 98% on R/A; Weight 86.18 kg (R); ak1 Height 5 ft. 7 in. (170.18 cm) (R); Pain 3; 06:56 Body Mass Index 29.76 (86.18 kg, 170.18 cm) ak1 ED Course: 06:46 Patient arrived in ED. es 06:55 Milana Ramirez, RN is Primary Nurse. ak1 06:58 Triage completed. ak1 07:00 Arm band placed on Patient placed in an exam room, on a stretcher, on pulse oximetry, ak1 Patient notified of wait time. 07:02 Reed Ahn MD is Attending Physician. rn 07:02 Patient has correct armband on for positive identification. Bed in low position. Call ak1 light in reach. Side rails up X 1. Pulse ox on. NIBP on. 07:10 Initial lab(s) drawn, by me, sent to lab. Inserted saline lock: 20 gauge in right sg antecubital area, using aseptic technique. Blood collected. Patient maintains SpO2 saturation greater than 95% on room air. 07:15 Primary Nurse role handed off by Milana Ramirez RN tw2 07:15 Anita Rodas RN is Primary Nurse. tw2 07:[address] Scan. sg 07:43 CT Stone Protocol In Process Unspecified. EDMS 07:47 Awaiting radiology results. sg 08:37 No provider procedures requiring assistance completed. IV discontinued, intact, tw2 bleeding controlled, No redness/swelling at site. Pressure dressing applied. Administered Medications: 08:32 Not Given (Patient Refused): TORadol 30 mg IVP once sg Outcome: 08:30 Discharge ordered by . rn 08:37 Patient left the ED. sg 08:37 Discharged to home ambulatory. tw2 08:37 Condition: stable 08:37 Discharge instructions given to patient, Instructed on discharge instructions, follow up and referral plans. Demonstrated understanding of instructions, follow-up care. Signatures: Dispatcher [employer] Santy Quinones RN RN sg Salyer, Edna es Nieto, Roman, MD MD rn Krenek, Amber, RN RN ak1 Anita Rodas RN RN tw2
[2018-07-09 08:48] VITALS: BP 111/90; TEMP 97.6; O2SAT 98
== END 2018-07-09 08:37 | disposition home or self-care (01) ==
LOC: ER 06:41
DX: N20.0 Calculus of kidney (principal); F41.9 Anxiety disorder, unspecified; F17.210 Nicotine dependence, cigarettes, uncomplicated; Z87.442 Personal history of urinary calculi
CPT/HCPCS: 36415; 74176; 76377; 80048; 85025; 99284

== ENCOUNTER 2018-08-13 10:11 | Emergency (ER) | payer BC ==
--- NOTE | 2018-08-13 12:06 | EDPHYS ---
Physician Documentation [facility] Name: Justin Smith Age: 28 yrs Sex: Male : 1990 Arrival Date: 08/13/2018 Time: 10:13 Bed 9 Private MD: out of town, doctor ED Physician Elia Martinez HPI: 08/13 12:05 This 28 yrs old Male presents to ER via Ambulatory with complaints of Flu kb Symptoms. 12:05 The patient presents with sore throat. The patient presents with dysphagia. The patient kb describes throat pain as constant. Onset: The symptoms/episode began/occurred yesterday. Severity of symptoms: At their worst the symptoms were moderate, in the emergency department the symptoms are unchanged. Modifying factors: The symptoms are alleviated by nothing, the symptoms are aggravated by swallowing, Patient's oral intake status: good. Associated signs and symptoms: Pertinent positives: fever, flu-like symptoms, malaise, Sore throat. The patient has not experienced similar symptoms in the past. The patient has not recently seen a physician. Historical: - Allergies: 10:22 No Known Allergies; ss - Home Meds: 10:22 Propranolol Oral [Active]; ss - PMHx: 10:22 Anxiety; Kidney stones; Migraine; ss - PSHx: 10:22 None; ss - Immunization history:: Adult Immunizations unknown. - Social history:: Smoking status: Patient uses tobacco products, smokes one-half pack cigarettes per day. - Ebola Screening: : Patient denies exposure to infectious person Patient denies travel to an Ebola-affected area in the 21 days before illness onset. ROS: 12:04 Neck: Negative for injury, pain, and swelling, Cardiovascular: Negative for chest pain, kb palpitations, and edema, Respiratory: Negative for shortness of breath, cough, wheezing, and pleuritic chest pain, Abdomen/GI: Negative for abdominal pain, nausea, vomiting, diarrhea, and constipation, MS/Extremity: Negative for injury and deformity, Skin: Negative for injury, rash, and discoloration, Neuro: Negative for headache, weakness, numbness, tingling, and seizure. 12:04 Constitutional: Positive for body aches, chills, fatigue, fever, malaise. 12:04 ENT: Positive for sore throat. Exam: 12:03 Constitutional: This is a well developed, well nourished patient who is awake, alert, kb and in no acute distress. Head/Face: Normocephalic, atraumatic. Neck: Trachea midline, no thyromegaly or masses palpated, and no cervical lymphadenopathy. Supple, full range of motion without nuchal rigidity, or vertebral point tenderness. No Meningismus. Chest/axilla: Normal chest wall appearance and motion. Nontender with no deformity. No lesions are appreciated. Cardiovascular: Regular rate and rhythm with a normal S1 and S2. No gallops, murmurs, or rubs. Normal PMI, no JVD. No pulse deficits. Respiratory: Lungs have equal breath sounds bilaterally, clear to auscultation and percussion. No rales, rhonchi or wheezes noted. No increased work of breathing, no retractions or nasal flaring. Abdomen/GI: Soft, non-tender, with normal bowel sounds. No distension or tympany. No guarding or rebound. No evidence of tenderness throughout. Skin: Warm, dry with normal turgor. Normal color with no rashes, no lesions, and no evidence of cellulitis. MS/ Extremity: Pulses equal, no cyanosis. Neurovascular intact. Full, normal range of motion. Neuro: Awake and alert, GCS 15, oriented to person, place, time, and situation. Cranial nerves II-XII grossly intact. Motor strength 5/5 in all extremities. Sensory grossly intact. Cerebellar exam normal. Normal gait. 12:03 ENT: External ear(s): are unremarkable, Ear canal(s): are normal, TM's: are normal, Nose: is normal, Mouth: is normal, Posterior pharynx: Airway: normal, no evidence of obstruction, Tonsils: bilaterally enlarged, with erythema, Uvula: normal, midline, swelling, that is mild, erythema, that is moderate. Vital Signs: 10:22 BP 112 / 85; Pulse 75; Resp 15; Temp 98.3(TE); Pulse Ox 98% on R/A; Weight 86.18 kg; ss Height 5 ft. 7 in. (170.18 cm); Pain 2/10; 10:22 Body Mass Index 29.76 (86.18 kg, 170.18 cm) MDM: 11:37 Patient medically screened. kb 12:02 Data reviewed: vital signs, nurses notes. Data interpreted: Pulse oximetry: on room air kb is 98 %. Interpretation: normal. Counseling: I had a detailed discussion with the patient and/or guardian regarding: the historical points, exam findings, and any diagnostic results supporting the discharge/admit diagnosis, lab results, the need for outpatient follow up, a family practitioner, to return to the emergency department if symptoms worsen or persist or if there are any questions or concerns that arise at home. 08/13 10:21 Order name: Flu; Complete Time: 11:37 kb 08/13 10:21 Order name: Strep; Complete Time: 11:43 kb Administered Medications: 12:00 Drug: Augmentin 875 mg Route: PO; iw Disposition: 15:07 Co-signature as Attending Physician, Elia Martinez MD I agree with the assessment and toño plan of care. Disposition: 08/13/18 12:06 Discharged to Home. Impression: Streptococcal pharyngitis. - Condition is Stable. - Discharge Instructions: Strep Throat, [id number]. - Prescriptions for Augmentin 875- 125 mg Oral Tablet - take 1 tablet by ORAL route every 12 hours for 10 days; 20 tablet. - Work release form, Medication Reconciliation Form, Thank You Letter, Antibiotic Education, Prescription Opioid Use form. - Follow up: Emergency Department; When: As needed; Reason: Worsening of condition. Follow up: Private Physician; When: 2 - 3 days; Reason: Recheck today's complaints, Continuance of care, Re-evaluation by your physician. Signatures: Dispatcher [employer] EDAR Hillary Luna, CLINICAL PRODUCT MANAGER-C CLINICAL PRODUCT MANAGER-Elia Galvez MD MD cha Williams, Irene, RN RN iw Smirch, Shelby, RN RN ss Corrections: (The following items were deleted from the chart) 12:13 12:06 08/13/2018 12:06 Discharged to Home. Impression: Streptococcal pharyngitis. iw Condition is Stable. Forms are Medication Reconciliation Form, Thank You Letter, Antibiotic Education, Prescription Opioid Use. Follow up: Emergency Department; When: As needed; Reason: Worsening of condition. Follow up: Private Physician; When: 2 - 3 days; Reason: Recheck today's complaints, Continuance of care, Re-evaluation by your physician. kb
--- NOTE | 2018-08-13 12:06 | ER ---
Nurse's Notes [facility] Name: Justin Smith Age: 28 yrs Sex: Male : 1990 Arrival Date: 08/13/2018 Time: 10:13 Bed 9 Private MD: out of town, doctor Diagnosis: Streptococcal pharyngitis Presentation: 08/13 10:19 Presenting complaint: Patient states: "I feel like I have something in my ears, and ss like my equilibrium is off. My body aches, my throat and nose burn like hell and I had a little fever with it." Symptoms began yesterday. Transition of care: patient was not received from another setting of care. Onset of symptoms was August 12, 2018. Risk Assessment: Do you want to hurt yourself or someone else? Patient reports no desire to harm self or others. Initial Sepsis Screen: Does the patient meet any 2 criteria? No. Patient's initial sepsis screen is negative. Does the patient have a suspected source of infection? No. Patient's initial sepsis screen is negative. Care prior to arrival: None. 10:19 Method Of Arrival: Ambulatory ss 10:19 Acuity: IFEANYI 4 ss Triage Assessment: 12:12 General: Appears in no apparent distress. Behavior is calm. iw Historical: - Allergies: 10:22 No Known Allergies; ss - Home Meds: 10:22 Propranolol Oral [Active]; ss - PMHx: 10:22 Anxiety; Kidney stones; Migraine; ss - PSHx: 10:22 None; ss - Immunization history:: Adult Immunizations unknown. - Social history:: Smoking status: Patient uses tobacco products, smokes one-half pack cigarettes per day. - Ebola Screening: : Patient denies exposure to infectious person Patient denies travel to an Ebola-affected area in the 21 days before illness onset. Screenin:00 Abuse screen: Denies threats or abuse. Denies injuries from another. Nutritional iw screening: No deficits noted. Tuberculosis screening: No symptoms or risk factors identified. Fall Risk None identified. Assessment: 11:50 General: Appears in no apparent distress. Behavior is calm, cooperative. Pain: iw Complains of pain in throat. Neuro: Level of Consciousness is awake, alert, obeys commands, Moves all extremities. Cardiovascular: Patient's skin is warm and dry. Respiratory: Respiratory effort is even, unlabored, Respiratory pattern is regular. Derm: Skin is intact, is healthy with good turgor. Musculoskeletal: Range of motion: intact in all extremities. Vital Signs: 10:22 BP 112 / 85; Pulse 75; Resp 15; Temp 98.3(TE); Pulse Ox 98% on R/A; Weight 86.18 kg; ss Height 5 ft. 7 in. (170.18 cm); Pain 2/10; 10:22 Body Mass Index 29.76 (86.18 kg, 170.18 cm) ED Course: 10:13 Patient arrived in ED. dl4 10:13 out of town, doctor is Private Physician. dl4 10:21 Triage completed. ss 10:22 Arm band placed on right wrist. ss 11:02 Strep Sent. ss 11:02 Flu Sent. ss 11:26 Temi Ott, RN is Primary Nurse. iw 11:37 Hillary Luna FNP-C [facility]. kb 11:37 Elia Martinez MD is Attending Physician. kb 11:50 Patient has correct armband on for positive identification. iw 12:10 Patient did not have IV access during this emergency room visit. iw 12:12 No provider procedures requiring assistance completed. iw Administered Medications: 12:00 Drug: Augmentin 875 mg Route: PO; iw Outcome: 12:06 Discharge ordered by . kb 12:12 Discharged to home ambulatory. iw 12:12 Condition: good 12:12 Discharge instructions given to patient, Instructed on discharge instructions, follow up and referral plans. medication usage, Demonstrated understanding of instructions, follow-up care, medications, Prescriptions given X 1. 12:13 Patient left the ED. iw Signatures: Hillary Luna FNP-C FNP-Temi Merino, RN RN Lisa Montes RN RN [place] dl4
[2018-08-13] MEDS ORDERED: AMOX/K CLAV 875 MG TAB ONE (12:17)
[2018-08-13 12:32] VITALS: BP 112/85; TEMP 98.3; O2SAT 98
== END 2018-08-13 12:13 | disposition home or self-care (01) ==
LOC: ER 10:11
DX: J02.0 Streptococcal pharyngitis (principal); F41.9 Anxiety disorder, unspecified; F17.210 Nicotine dependence, cigarettes, uncomplicated
CPT/HCPCS: 87081; 87804; 99283

== ENCOUNTER 2018-10-22 09:09 | Emergency (ER) | payer BC ==
--- NOTE | 2018-10-22 10:31 | EDPHYS ---
Physician Documentation [facility] Name: Justin Smith Age: 28 yrs Sex: Male : 1990 Arrival Date: 10/22/2018 Time: 09:12 Bed 19 Private MD: out of town, doctor ED Physician Reed Ahn HPI: 10/22 10:06 This 28 yrs old Male presents to ER via Ambulatory with complaints of Fever, kb Cough, Dizziness. 10:07 The patient or guardian reports cough, that is intermittent, described as mild, with no kb sputum, flu symptoms, low-grade fever, myalgias. Onset: The symptoms/episode began/occurred yesterday. Severity of symptoms: At their worst the symptoms were moderate, in the emergency department the symptoms are unchanged. Modifying factors: The symptoms are alleviated by nothing, the symptoms are aggravated by nothing. Associated signs and symptoms: Pertinent positives: fever, sore throat, Pertinent negatives: chest pain, diarrhea, ear ache, nausea, rhinorrhea, vomiting. The patient has not experienced similar symptoms in the past. The patient has not recently seen a physician. Pt states "I've had chills, fever (99.8 TMAX), congestion, body aches, sore throat and a bad ass cough. This all started yesterday.". Historical: - Allergies: 09:22 No Known Allergies; hj - Home Meds: 09:22 Propranolol Oral [Active]; hj - PMHx: 09:22 Anxiety; Kidney stones; Migraine; hj - PSHx: 09:22 None; hj - Immunization history:: Adult Immunizations not up to date, Flu vaccine is not up to date. - Social history:: Smoking status: Patient uses tobacco products, denies chronic smoking, but will smoke occasionally. - Ebola Screening: : Patient negative for fever greater than or equal to 101.5 degrees Fahrenheit, and additional compatible Ebola Virus Disease symptoms Patient denies exposure to infectious person Patient denies travel to an Ebola-affected area in the 21 days before illness onset. ROS: 10:06 Neck: Negative for injury, pain, and swelling, Cardiovascular: Negative for chest pain, kb palpitations, and edema, Abdomen/GI: Negative for abdominal pain, nausea, vomiting, diarrhea, and constipation, Back: Negative for injury and pain, MS/Extremity: Negative for injury and deformity, Skin: Negative for injury, rash, and discoloration, Neuro: Negative for headache, weakness, numbness, tingling, and seizure. 10:06 Constitutional: Positive for body aches, chills, fatigue, fever, malaise, Negative for poor PO intake, weight loss. 10:06 ENT: Positive for sore throat. 10:06 Respiratory: Positive for cough, Negative for dyspnea on exertion, hemoptysis, orthopnea, pleurisy, shortness of breath, sputum production, wheezing. Exam: 10:06 Constitutional: This is a well developed, well nourished patient who is awake, alert, kb and in no acute distress. Head/Face: Normocephalic, atraumatic. Eyes: Pupils equal round and reactive to light, extra-ocular motions intact. Lids and lashes normal. Conjunctiva and sclera are non-icteric and not injected. Cornea within normal limits. Periorbital areas with no swelling, redness, or edema. ENT: Nares patent. No nasal discharge, no septal abnormalities noted. Tympanic membranes are normal and external auditory canals are clear. Oropharynx with no redness, swelling, or masses, exudates, or evidence of obstruction, uvula midline. Mucous membranes moist. Neck: Trachea midline, no thyromegaly or masses palpated, and no cervical lymphadenopathy. Supple, full range of motion without nuchal rigidity, or vertebral point tenderness. No Meningismus. Chest/axilla: Normal chest wall appearance and motion. Nontender with no deformity. No lesions are appreciated. Cardiovascular: Regular rate and rhythm with a normal S1 and S2. No gallops, murmurs, or rubs. Normal PMI, no JVD. No pulse deficits. Respiratory: Lungs have equal breath sounds bilaterally, clear to auscultation and percussion. No rales, rhonchi or wheezes noted. No increased work of breathing, no retractions or nasal flaring. Abdomen/GI: Soft, non-tender, with normal bowel sounds. No distension or tympany. No guarding or rebound. No evidence of tenderness throughout. Skin: Warm, dry with normal turgor. Normal color with no rashes, no lesions, and no evidence of cellulitis. MS/ Extremity: Pulses equal, no cyanosis. Neurovascular intact. Full, normal range of motion. Neuro: Awake and alert, GCS 15, oriented to person, place, time, and situation. Cranial nerves II-XII grossly intact. Motor strength 5/5 in all extremities. Sensory grossly intact. Cerebellar exam normal. Normal gait. Vital Signs: 09:22 BP 119 / 73; Pulse 83; Resp 18; Temp 97.6(O); Pulse Ox 97% on R/A; Weight 83.91 kg; hj Height 5 ft. 7 in. (170.18 cm); 10:23 BP 100 / 74; Pulse 68; Resp 18 S; Temp 98.3(TE); Pulse Ox 99% on R/A; ca1 09:22 Body Mass Index 28.97 (83.91 kg, 170.18 cm) hj MDM: 09:32 Patient medically screened. kb 10:06 Data reviewed: vital signs, nurses notes. Data interpreted: Pulse oximetry: on room air kb is 97 %. Interpretation: normal. 10:29 Counseling: I had a detailed discussion with the patient and/or guardian regarding: the kb historical points, exam findings, and any diagnostic results supporting the discharge/admit diagnosis, lab results, the need for outpatient follow up, a family practitioner, to return to the emergency department if symptoms worsen or persist or if there are any questions or concerns that arise at home. 10/22 09:23 Order name: Strep; Complete Time: 10:24 kb 10/22 09:36 Order name: Flu; Complete Time: 10:29 kb 10/22 10:28 Order name: Throat Culture EDMS Administered Medications: No medications were administered Disposition: 10:56 Co-signature as Attending Physician, Reed Ahn MD. rn Disposition: 10/22/18 10:29 Discharged to Home. Impression: Acute upper respiratory infection, unspecified. - Condition is Stable. - Discharge Instructions: Upper Respiratory Infection, Adult, [id number], Viral Respiratory Infection, [id number]. - Medication Reconciliation Form, Thank You Letter, Antibiotic Education, Prescription Opioid Use, Work release form form. - Follow up: Emergency Department; When: As needed; Reason: Worsening of condition. Follow up: Private Physician; When: 2 - 3 days; Reason: Recheck today's complaints, Continuance of care, Re-evaluation by your physician. Signatures: Dispatcher [employer] EDMS Hillary Luna FNP-C LEAD RETAIL SALES ASSOCIATE-Ckb Reed Ahn MD MD rn Michael Walsh, RN [place] hj Rupinder Huff RN RN ca1 Corrections: (The following items were deleted from the chart) 10:08 10:07 Pt states "I've had chills, fever (99.8 TMAX), congestion, sore throat and a bad kb ass cough. This all started yesterday.". kb 10:39 10:29 10/22/2018 10:29 Discharged to Home. Impression: Acute upper respiratory ca1 infection, unspecified. Condition is Stable. Forms are Medication Reconciliation Form, Thank You Letter, Antibiotic Education, Prescription Opioid Use. Follow up: Emergency Department; When: As needed; Reason: Worsening of condition. Follow up: Private Physician; When: 2 - 3 days; Reason: Recheck today's complaints, Continuance of care, Re-evaluation by your physician. kb
--- NOTE | 2018-10-22 10:31 | ER ---
Nurse's Notes [facility] Name: Justin Smith Age: 28 yrs Sex: Male : 1990 Arrival Date: 10/22/2018 Time: 09:12 Bed 19 Private MD: out of town, doctor Diagnosis: Acute upper respiratory infection, unspecified Presentation: 10/22 09:21 Presenting complaint: Patient states: i have this on an off fever, cough and chills, hj felt dizzy as well; reports sore throat;. Transition of care: patient was not received from another setting of care. Onset of symptoms was October 22, 2018. Risk Assessment: Do you want to hurt yourself or someone else? Patient reports no desire to harm self or others. Initial Sepsis Screen: Does the patient meet any 2 criteria? No. Patient's initial sepsis screen is negative. Does the patient have a suspected source of infection? No. Patient's initial sepsis screen is negative. Care prior to arrival: None. 09:21 Method Of Arrival: Ambulatory 09:21 Acuity: IFEANYI 4 Historical: - Allergies: 09:22 No Known Allergies; - Home Meds: :22 Propranolol Oral [Active]; hj - PMHx: 09:22 Anxiety; Kidney stones; Migraine; hj - PSHx: :22 None; hj - Immunization history:: Adult Immunizations not up to date, Flu vaccine is not up to date. - Social history:: Smoking status: Patient uses tobacco products, denies chronic smoking, but will smoke occasionally. - Ebola Screening: : Patient negative for fever greater than or equal to 101.5 degrees Fahrenheit, and additional compatible Ebola Virus Disease symptoms Patient denies exposure to infectious person Patient denies travel to an Ebola-affected area in the 21 days before illness onset. Screenin:33 Abuse screen: Denies threats or abuse. Denies injuries from another. Nutritional ca1 screening: No deficits noted. Tuberculosis screening: No symptoms or risk factors identified. Fall Risk None identified. Assessment: 09:33 General: Appears in no apparent distress. comfortable, Behavior is calm, cooperative, ca1 appropriate for age. General: Reports chills for 12-24 hours, fever for. Pain: Denies pain. Neuro: Level of Consciousness is awake, alert, obeys commands, Oriented to person, place, time, situation. Respiratory: Reports cough that is productive, since yesterday Airway is patent Respiratory effort is even, unlabored, Respiratory pattern is regular, symmetrical, Sputum is green Breath sounds are clear bilaterally. EENT: Throat is pink Reports nasal congestion since yesterday nasal discharge that is green. Derm: Skin is intact, is healthy with good turgor, Skin is pink, warm \T\ dry. Musculoskeletal: Circulation, motion, and sensation intact. Capillary refill < 3 seconds, Range of motion: intact in all extremities. 10:23 Reassessment: Patient appears in no apparent distress at this time. Patient and/or ca1 family updated on plan of care and expected duration. Pain level reassessed. Patient is alert, oriented x 3, equal unlabored respirations, skin warm/dry/pink. Vital Signs: 09:22 BP 119 / 73; Pulse 83; Resp 18; Temp 97.6(O); Pulse Ox 97% on R/A; Weight 83.91 kg; hj Height 5 ft. 7 in. (170.18 cm); 10:23 BP 100 / 74; Pulse 68; Resp 18 S; Temp 98.3(TE); Pulse Ox 99% on R/A; ca1 09:22 Body Mass Index 28.97 (83.91 kg, 170.18 cm) ED Course: 09:12 Patient arrived in ED. ss 09:12 out of town, doctor is Private Physician. ss 09:13 [facility]. kb 09:13 Reed Ahn MD is Attending Physician. kb 09:22 Triage completed. hj 09:24 Arm band placed on right wrist. hj 09:25 Rupinder Huff, RN is Primary Nurse. ca1 09:33 Patient has correct armband on for positive identification. Placed in gown. Bed in low ca1 position. Call light in reach. Side rails up X 1. Pulse ox on. NIBP on. 09:33 No provider procedures requiring assistance completed. ca1 10:38 Patient did not have IV access during this emergency room visit. ca1 Administered Medications: No medications were administered Outcome: 10:29 Discharge ordered by . kb 10:38 Discharged to home ambulatory. ca1 10:38 Condition: stable 10:38 Discharge instructions given to patient, Instructed on discharge instructions, follow up and referral plans. Demonstrated understanding of instructions, follow-up care. 10:39 Patient left the ED. ca1 Signatures: Hillary Luna, Lisa Li RN RN ss Michael Walsh RN RN Rupinder Huff RN RN ca1
[2018-10-22 11:21] VITALS: BP 100/74; TEMP 98.3; O2SAT 99
== END 2018-10-22 10:39 | disposition home or self-care (01) ==
LOC: ER 09:09
DX: J06.9 Acute upper respiratory infection, unspecified (principal); F41.9 Anxiety disorder, unspecified; Z72.0 Tobacco use
CPT/HCPCS: 87070; 87081; 87804; 99283

== ENCOUNTER 2018-11-02 02:26 | Emergency (ER) | payer BC ==
[2018-11-02] MEDS ORDERED: NA CHLORIDE 0.9% 1,000 ML ONE (02:59)
[2018-11-02] MEDS ORDERED: KETOROLAC 30 MG/ML INJ ONE (02:59)
[2018-11-02 03:05] LABS: Basophils % 0.8 % (0-1.3); Eosinophils % 5.7 % (0-4.4); Hematocrit 46.1 % (39.6-49.0); Lymphocytes % 36.8 % (15.3-44.8); MPV 7.4 fL (7.6-11.3); Monocytes % 6.5 % (3.3-12.3); RBC Red Blood Cell Count 5.01 M/uL (4.33-5.43)
[2018-11-02 03:18] LABS: Potassium 3.4 mmol/L (3.5-5.1)
--- NOTE | 2018-11-02 04:02 | EDPHYS ---
Physician Documentation [facility] Name: Justin Smith Age: 28 yrs Sex: Male : 1990 Arrival Date: 11/02/2018 Time: 02:27 Bed 20 Private MD: ED Physician Kamran Steele HPI: 11/02 03:59 This 28 yrs old Male presents to ER via Wheelchair with complaints of Flank gs Pain. 03:59 The patient complains of pain in the left low back and left mid back. The pain does not gs radiate. Onset: The symptoms/episode began/occurred acutely, just prior to arrival. Modifying factors: The symptoms are alleviated by nothing. the symptoms are aggravated by nothing. Associated signs and symptoms: Pertinent positives: nausea. Severity of pain: At its worst the pain was severe in the emergency department the pain is unchanged. The patient has experienced similar episodes in the past, a few times. The patient has not recently seen a physician. Historical: - Allergies: 02:37 No Known Allergies; ak1 - Home Meds: 02:37 Propranolol Oral [Active]; ak1 - PMHx: 02:37 Anxiety; Kidney stones; Migraine; ak1 - PSHx: 02:37 None; ak1 - Immunization history:: Adult Immunizations unknown. - Social history:: Smoking status: unknown. - Ebola Screening: : No symptoms or risks identified at this time. ROS: 03:59 All other systems are negative. gs Exam: 03:59 Head/Face: Normocephalic, atraumatic. Eyes: Pupils equal round and reactive to light, gs extra-ocular motions intact. Lids and lashes normal. Conjunctiva and sclera are non-icteric and not injected. Cornea within normal limits. Periorbital areas with no swelling, redness, or edema. ENT: Nares patent. No nasal discharge, no septal abnormalities noted. Tympanic membranes are normal and external auditory canals are clear. Oropharynx with no redness, swelling, or masses, exudates, or evidence of obstruction, uvula midline. Mucous membranes moist. Neck: Trachea midline, no thyromegaly or masses palpated, and no cervical lymphadenopathy. Supple, full range of motion without nuchal rigidity, or vertebral point tenderness. No Meningismus. Chest/axilla: Normal chest wall appearance and motion. Nontender with no deformity. No lesions are appreciated. Cardiovascular: Regular rate and rhythm with a normal S1 and S2. No gallops, murmurs, or rubs. Normal PMI, no JVD. No pulse deficits. Respiratory: Lungs have equal breath sounds bilaterally, clear to auscultation and percussion. No rales, rhonchi or wheezes noted. No increased work of breathing, no retractions or nasal flaring. Abdomen/GI: Soft, non-tender, with normal bowel sounds. No distension or tympany. No guarding or rebound. No evidence of tenderness throughout. Back: No spinal tenderness. No costovertebral tenderness. Full range of motion. Skin: Warm, dry with normal turgor. Normal color with no rashes, no lesions, and no evidence of cellulitis. MS/ Extremity: Pulses equal, no cyanosis. Neurovascular intact. Full, normal range of motion. Neuro: Awake and alert, GCS 15, oriented to person, place, time, and situation. Cranial nerves II-XII grossly intact. Motor strength 5/5 in all extremities. Sensory grossly intact. Cerebellar exam normal. Normal gait. 03:59 Constitutional: The patient appears alert, awake, uncomfortable. Vital Signs: 02:36 BP 140 / 97; Pulse 95; Resp 22; Temp 98.7; Pulse Ox 100% on R/A; Weight 81.65 kg (R); ak1 Height 5 ft. 7 in. (170.18 cm) (R); Pain 10/10; 03:29 BP 120 / 79; Pulse 73; Resp 18; Pulse Ox 98% on R/A; lp1 03:36 Pain 3/10; lp1 04:00 BP 125 / 77; Pulse 75; Resp 19 S; Pulse Ox 98% on R/A; cc3 02:36 Body Mass Index 28.19 (81.65 kg, 170.18 cm) ak1 MDM: 02:39 Patient medically screened. gs 03:59 Differential diagnosis: nephrolithiasis, UTI. Data reviewed: vital signs, nurses notes, gs lab test result(s), radiologic studies. Counseling: I had a detailed discussion with the patient and/or guardian regarding: the historical points, exam findings, and any diagnostic results supporting the discharge/admit diagnosis, the presence of at least one elevated blood pressure reading (>120/80) during this emergency department visit, lab results. Response to treatment: the patient's symptoms have markedly improved after treatment, the patient's symptoms have resolved after treatment, the patient's pain is gone. Special discussion: I have referred the patient to see his PCP for further evaluation of high blood pressure. 11/02 02:29 Order name: Urine Microscopic Only 11/02 02:40 Order name: CBC with Diff 11/02 02:40 Order name: Basic Metabolic Panel 11/02 02:40 Order name: CT Stone Protocol 11/02 03:51 Order name: Urine Dipstick--Ancillary (enter results) lp1 11/02 02:29 Order name: Urine Dipstick-Ancillary (obtain specimen); Complete Time: 03:48 Administered Medications: 02:50 Drug: TORadol - Ketorolac 15 mg Route: IVP; Site: right antecubital; ak1 03:36 Follow up: Pain 07/08 Adult; Response: Marked relief of symptoms; Pain is decreased lp1 02:50 Drug: NS 0.9% 1000 ml Route: IV; Rate: 1 bolus; Site: right antecubital; ak1 04:15 Follow up: Response: No adverse reaction; IV Status: Completed infusion; IV Intake: cc3 1000ml Disposition: 11/02/18 04:01 Discharged to Home. Impression: Hydronephrosis with renal and ureteral calculous obstruction. - Condition is Stable. - Discharge Instructions: Hydronephrosis. - Prescriptions for Naprosyn 500 mg Oral Tablet - take 1 tablet by ORAL route 2 times per day As needed take with food; 30 tablet. Tylenol- Codeine #4 300-60 mg Oral Tablet - take 1 tablet by ORAL route every 6 hours As needed; 12 tablet. - Medication Reconciliation Form, Thank You Letter, Antibiotic Education, Prescription Opioid Use, Family Work Release form. - Follow up: Jose De Jesus Rodriguez MD; When: 2 - 3 days; Reason: Re-evaluation by your physician. Signatures: Dispatcher [employer] EDMilana Lew RN RN ak1 Kamran Steele MD MD gs Cordel, Charlene cc3 Natalie Dominguez RN lp1 Corrections: (The following items were deleted from the chart) 04:22 04:01 11/02/2018 04:01 Discharged to Home. Impression: Hydronephrosis with renal and cc3 ureteral calculous obstruction. Condition is Stable. Forms are Medication Reconciliation Form, Thank You Letter, Antibiotic Education, Prescription Opioid Use. Follow up: Jose De Jesus Rodriguez; When: 2 - 3 days; Reason: Re-evaluation by your physician. gs
--- NOTE | 2018-11-02 04:02 | ER ---
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 Transition of care: patient was not received from another setting of care. Onset of symptoms was November 02, 2018. Risk Assessment: Do you want to hurt yourself or someone else? Patient reports no desire to harm self or others. Initial Sepsis Screen: Does the patient meet any 2 criteria? No. Patient's initial sepsis screen is negative. Does the patient have a suspected source of infection? No. Patient's initial sepsis screen is negative. Care prior to arrival: None. 02:36 Method Of Arrival: Wheelchair ak1 02:36 Acuity: IFEANYI 3 ak1 Triage Assessment: 02:37 General: Appears uncomfortable, Behavior is cooperative, anxious. ak1 02:39 Pain: Complains of pain in left flank. ak1 Historical: - Allergies: 02:37 No Known Allergies; ak1 - Home Meds: 02:37 Propranolol Oral [Active]; ak1 - PMHx: 02:37 Anxiety; Kidney stones; Migraine; ak1 - PSHx: 02:37 None; ak1 - Immunization history:: Adult Immunizations unknown. - Social history:: Smoking status: unknown. - Ebola Screening: : No symptoms or risks identified at this time. Screenin:38 Abuse screen: Denies threats or abuse. Denies injuries from another. Nutritional ak1 screening: No deficits noted. Tuberculosis screening: No symptoms or risk factors identified. Fall Risk None identified. Assessment: 03:36 Reassessment: Patient states improved pain, 3/10 Patient states feeling better. Patient lp1 states symptoms have improved. 04:15 Reassessment: Patient appears in no apparent distress at this time. Patient and/or cc3 family updated on plan of care and expected duration. Pain level reassessed. Patient is alert, oriented x 3, equal unlabored respirations, skin warm/dry/pink. Dr. Steele discharged the patient home with prescriptions given. IV cannula removed and patient left ER vitally stable and ambulatory with his girlfriend. Patient states feeling better. Patient states symptoms have improved. Vital Signs: 02:36 BP 140 / 97; Pulse 95; Resp 22; Temp 98.7; Pulse Ox 100% on R/A; Weight 81.65 kg (R); ak1 Height 5 ft. 7 in. (170.18 cm) (R); Pain 10/10; 03:29 BP 120 / 79; Pulse 73; Resp 18; Pulse Ox 98% on R/A; lp1 03:36 Pain 3/10; lp1 04:00 BP 125 / 77; Pulse 75; Resp 19 S; Pulse Ox 98% on R/A; cc3 02:36 Body Mass Index 28.19 (81.65 kg, 170.18 cm) ak1 ED Course: 02:27 Patient arrived in ED. ag3 02:34 Kamran Steele MD is Attending Physician. gs 02:37 Triage completed. ak1 02:37 Arm band placed on Patient placed in an exam room, on a stretcher, Patient notified of ak1 wait time. 02:38 Patient has correct armband on for positive identification. Bed in low position. Call ak1 light in reach. Side rails up X 1. Pulse ox on. NIBP on. 02:40 Mikayla Jacome is Primary Nurse. cc3 03:14 CT Stone Protocol In Process Unspecified. EDMS 04:01 Jose De Jesus Rodriguez MD is Referral Physician. gs 04:15 No provider procedures requiring assistance completed. IV discontinued, intact, cc3 bleeding controlled, No redness/swelling at site. Pressure dressing applied. Administered Medications: 02:50 Drug: TORadol - Ketorolac 15 mg Route: IVP; Site: right antecubital; ak1 03:36 Follow up: Pain 3/10 Adult; Response: Marked relief of symptoms; Pain is decreased lp1 02:50 Drug: NS 0.9% 1000 ml Route: IV; Rate: 1 bolus; Site: right antecubital; ak1 04:15 Follow up: Response: No adverse reaction; IV Status: Completed infusion; IV Intake: cc3 1000ml Intake: 04:15 IV: 1000ml; Total: 1000ml. cc3 Outcome: 04:01 Discharge ordered by . gs 04:15 Discharged to home ambulatory, with friend. cc3 04:15 Condition: stable 04:15 Discharge instructions given to patient, Instructed on discharge instructions, follow up and referral plans. medication usage, Demonstrated understanding of instructions, follow-up care, medications, Prescriptions given X 2. 04:22 Patient left the ED. cc3 Signatures: Dispatcher [employer] EDMS Natalie Dominguez RN RN lp1 Milana Ramirez RN RN ak1 Kamran Steele MD MD gs Cordel, Charlene cc3 Sharlene Garcia 3
[2018-11-02 04:03] LABS: Urine Bacteria <20 /HPF (NONE SEEN); Urine Culture Reflex Order NOT NEEDED; Urine RBC 20-50 /HPF (NONE SEEN)
[2018-11-02 04:26] LABS: Urine Blood 3+ (NEG); Urine Glucose NEGATIVE (NEG); Urine Protein 1+ (NEG); Urine Specific Gravity >1.030 (1.005-1.030)
[2018-11-02 04:35] VITALS: TEMP 98.7
[2018-11-02 04:37] VITALS: O2SAT 98
[2018-11-02 04:39] VITALS: BP 125/77
--- NOTE | 2018-11-02 09:02 | RAD REPORT ---
EXAM DESCRIPTION: CT - Stone Protocol - 11/02/2018 5:29 am COMPARISON: CT abdomen pelvis July 09, 2018 CLINICAL HISTORY: Flank pain TECHNIQUE: Multiple helical axial images were obtained through the abdomen and pelvis without intrav enous contrast. Sagittal and coronal reformatted images are reviewed as well. All CT scans at this facility use dose modulation, iterative reconstruction, and/or weight-based dosi ng when appropriate to reduce radiation dose to as low as reasonably achievable. FINDINGS: Lung bases: Unremarkable. Liver: Homogenous attenuation is demonstrated. Gallbladder/biliary: Gallbladder appears unremarkable. No calcified gallstones. No evidence of biliar y ductal dilatation. Pancreas: Unremarkable. Spleen: Unremarkable. Adrenals: Unremarkable. Kidneys and ureters: There is a 5 mm stone in the proximal left ureter with mild left hydronephrosis and trace stranding near the left renal pelvis. A few punctate stones in the left kidney are present. Bladder: Unremarkable. Pelvic organs: Unremarkable. Bowel: No evidence of bowel obstruction. No bowel wall thickening. Appendix appears unremarkable. Peritoneum: No free air. No significant free fluid. Lymph nodes: Unremarkable. Vasculature: Unremarkable. Soft tissues: A small fat-containing umbilical hernia is present. Bones: Unremarkable. IMPRESSION: 1. Left-sided 5 mm stone in the proximal left ureter with mild left hydronephrosis and t race left renal peripelvic stranding. 2. Left-sided nephrolithiasis. Electronically signed by: Kavon Byrne MD 11/02/2018 3:40 AM CDT Due to temporary technical issues with the PACS/Fluency reporting system, reports are being signed by the in house radiologist as a courtesy to ensure prompt reporting. The interpreting radiologist is f ully responsible for the content of the report.
== END 2018-11-02 04:22 | disposition home or self-care (01) ==
LOC: ER 02:26
DX: N13.2 Hydronephrosis with renal and ureteral calculous obstruction (principal); F41.9 Anxiety disorder, unspecified
CPT/HCPCS: 36415; 74176; 76377; 80048; 81003; 81015; 85025; 96361; 96374; 99284; J7030

== ENCOUNTER 2018-11-02 09:08 | Emergency (ER) | payer BC ==
[2018-11-02] MEDS ORDERED: KETOROLAC 30 MG/ML INJ ONE (09:39)
[2018-11-02] MEDS ORDERED: ONDANSETRON 4 MG/2 ML VIAL ONE (09:40)
[2018-11-02] MEDS ORDERED: MORPHINE 4 MG/ML SYR ONE (09:50)
[2018-11-02] MEDS ORDERED: NA CHLORIDE 0.9% 1,000 ML ONE ×2 (09:50→10:43)
[2018-11-02 10:04] LABS: Basophils % 0.3 % (0-1.3); Eosinophils % 4.1 % (0-4.4); Hematocrit 41.9 % (39.6-49.0); Lymphocytes % 22.2 % (15.3-44.8); MPV 7.3 fL (7.6-11.3); Monocytes % 5.8 % (3.3-12.3); RBC Red Blood Cell Count 4.53 M/uL (4.33-5.43)
[2018-11-02 10:08] LABS: ALT/SGPT 25 U/L (12-78); AST/SGOT 16 U/L (15-37); Albumin 3.8 g/dL (3.4-5.0); Alkaline Phosphatase 77 U/L (45-117); BUN Blood Urea Nitrogen 10 mg/dL (7-18); Bicarbonate 23 mmol/L (21-32); Bilirubin Direct 0.1 mg/dL (0-0.2); Bilirubin Total 0.6 mg/dL (0.2-1.0); Glucose Level 102 mg/dL (74-106); Lipase 157 U/L (73-393); Potassium 4.2 mmol/L (3.5-5.1); Protein, Total 6.9 g/dL (6.4-8.2); Sodium Level 142 mmol/L (136-145)
--- NOTE | 2018-11-02 10:19 | RAD REPORT ---
EXAM DESCRIPTION: RAD - Abdomen 1 View (KUB) - 11/02/2018 9:58 am CLINICAL HISTORY: Abdomen pain. FINDINGS: The bowel gas pattern is unremarkable. 5 millimeter calculus overlies the left L4 transverse process within the proximal to mid left ureter
--- NOTE | 2018-11-02 10:27 | ER ---
Nurse's Notes [facility] Name: Justin Smith Age: 28 yrs Sex: Male : 1990 Arrival Date: 11/02/2018 Time: 09:10 Bed 8 Private MD: Diagnosis: Hydronephrosis with renal and ureteral calculous obstruction Presentation: 11/02 09:29 Presenting complaint: Patient states: was seen here last night, Ct showed 5 mm kidney iw stone on left side, still having pain. Transition of care: patient was not received from another setting of care. Onset of symptoms was November 02, 2018. Risk Assessment: Do you want to hurt yourself or someone else? Patient reports no desire to harm self or others. Initial Sepsis Screen: Does the patient meet any 2 criteria? No. Patient's initial sepsis screen is negative. Does the patient have a suspected source of infection? No. Patient's initial sepsis screen is negative. Care prior to arrival: None. 09:29 Method Of Arrival: Ambulatory iw 09:29 Acuity: IFEANYI 3 iw Historical: - Allergies: 09:30 No Known Allergies; iw - Home Meds: 09:30 Propranolol Oral once daily [Active]; iw - PMHx: 09:30 Anxiety; Kidney stones; Migraine; iw - PSHx: 09:30 None; iw - Immunization history:: Adult Immunizations not up to date. - Social history:: Smoking status: Patient uses tobacco products, smokes one pack cigarettes per day. - Ebola Screening: : Patient negative for fever greater than or equal to 101.5 degrees Fahrenheit, and additional compatible Ebola Virus Disease symptoms Patient denies exposure to infectious person Patient denies travel to an Ebola-affected area in the 21 days before illness onset No symptoms or risks identified at this time. Screenin:51 Abuse screen: Denies threats or abuse. Denies injuries from another. Nutritional ph screening: No deficits noted. Tuberculosis screening: No symptoms or risk factors identified. Fall Risk None identified. Assessment: 09:49 General: Appears in no apparent distress. uncomfortable, well groomed, Behavior is ph calm, cooperative, appropriate for age, Reports chills for 0-12 hours, Denies fever. Pain: Complains of pain in anterior aspect of left lateral abdomen and posterior aspect of left lateral abdomen Pain radiates to left lower quadrant. Neuro: Level of Consciousness is awake, alert, obeys commands, Oriented to person, place, time, situation. Cardiovascular: Capillary refill < 3 seconds in bilateral fingers Patient's skin is warm and dry. Respiratory: Airway is patent Respiratory effort is even, unlabored, Respiratory pattern is regular, symmetrical. GI: Abdomen is round non-distended, Bowel sounds present X 4 quads. Abd is soft X 4 quads Reports lower abdominal pain, Patient currently denies diarrhea, nausea, vomiting. : Reports pain in left flank(s), lower quadrant(s) Denies burning with urination, inability to void. Derm: Skin is intact, is healthy with good turgor, Skin is pink, warm \T\ dry. Musculoskeletal: Circulation, motion, and sensation intact. Range of motion: intact in all extremities. 10:58 Reassessment: Patient appears in no apparent distress at this time. Patient and/or ph family updated on plan of care and expected duration. Pain level reassessed. Patient is alert, oriented x 3, equal unlabored respirations, skin warm/dry/pink. Pt resting quietly, d/c pending completion of IV fluids. Vital Signs: 09:30 BP 137 / 96; Pulse 74; Resp 16; Temp 98.6; Pulse Ox 99% on R/A; Weight 81.65 kg; Height iw 5 ft. 7 in. (170.18 cm); Pain 8/10; 09:30 Body Mass Index 28.19 (81.65 kg, 170.18 cm) iw ED Course: 09:05 Inserted saline lock: 20 gauge in right antecubital area, using aseptic technique. ph 09:10 Patient arrived in ED. mr 09:19 Elia Martinez MD is Attending Physician. toño 09:29 Triage completed. iw 09:30 Arm band placed on. iw 09:40 Wendie Brady, GASTON is Primary Nurse. ph 09:51 Patient has correct armband on for positive identification. Bed in low position. Call ph light in reach. Side rails up X 1. Pulse ox on. NIBP on. Door closed. Noise minimized. Warm blanket given. Head of bed elevated. 09:57 X-ray completed. Patient tolerated procedure well. Patient moved back from radiology. jb2 09:57 Note: PT STATES THAT THE PAIN IS GETTING WORSE. jb2 09:58 Abdomen 1 View (KUB) XRAY In Process Unspecified. EDMS 10:25 Mayra Sandoval MD is Referral Physician. toño 10:59 No provider procedures requiring assistance completed. ph 12:09 IV discontinued, intact, bleeding controlled, No redness/swelling at site. Pressure ph dressing applied. Administered Medications: 07:30 Drug: Zofran 4 mg Route: IVP; Site: right antecubital; hb 10:57 Follow up: Response: No adverse reaction ph 09:30 Drug: TORadol 30 mg Route: IVP; Infused Over: 1 mins; Site: right antecubital; hb 09:45 Follow up: Response: No adverse reaction; Pain is decreased ph 09:40 Drug: NS 0.9% 1000 ml Route: IV; Rate: 1 bolus; Site: right antecubital; hb 10:57 Follow up: Response: No adverse reaction; IV Status: Completed infusion; IV Intake: ph 1000ml 10:10 Drug: morphine 4 mg Route: IVP; Site: right antecubital; ph 10:57 Follow up: Response: No adverse reaction; Pain is decreased ph 10:45 Drug: NS 0.9% 1000 ml Route: IV; Rate: 1 bolus; Site: right antecubital; ph 11:50 Follow up: Response: No adverse reaction; IV Status: Completed infusion; IV Intake: ph 1000ml 10:48 Drug: Flomax 0.4 mg Route: PO; ph 10:58 Follow up: Response: No adverse reaction ph 10:50 Drug: Rocephin - (cefTRIAXone) 1 grams Route: IVPB; Infused Over: 30 mins; Site: right ph antecubital; 10:57 Follow up: Response: No adverse reaction; IV Status: Completed infusion ph 11:55 Drug: fentaNYL (PF) 25 mcg Route: IVP; Site: right antecubital; ph 12:07 Follow up: Response: No adverse reaction; Pain is decreased ph Intake: 10:57 IV: 1000ml; Total: 1000ml. ph 11:50 IV: 1000ml; Total: 2000ml. ph Outcome: 10:26 Discharge ordered by . toño 12:08 Discharged to home ambulatory, with family. ph 12:08 Condition: good 12:08 Discharge instructions given to patient, family, Instructed on discharge instructions, follow up and referral plans. medication usage, Demonstrated understanding of instructions, follow-up care, medications, Prescriptions given X 4. 12:09 Patient left the ED. ph Signatures: Dispatcher [employer] EDCT Elia Martinez MD MD cha Rivera, Mary mr Burobert, Temi Peralta RN RN iw Hall, Patricia, RN RN ph Baxter, Heather, RN RN
--- NOTE | 2018-11-02 10:28 | EDPHYS ---
Physician Documentation [facility] Name: Justin Smith Age: 28 yrs Sex: Male : 1990 Arrival Date: 11/02/2018 Time: 09:10 Bed 8 Private MD: VENKAT Physician Elia Martinez HPI: 11/02 10:07 This 28 yrs old Male presents to ER via Ambulatory with complaints of toño Possible Kidney Stone. 10:07 The patient complains of pain in the left low back and left mid back. The pain does not toño radiate. Onset: The symptoms/episode began/occurred 2 day(s) ago. Modifying factors: The symptoms are alleviated by nothing. the symptoms are aggravated by nothing. Associated signs and symptoms: Pertinent positives: nausea, vomiting. Severity of pain: At its worst the pain was moderate severe in the emergency department the pain has improved mildly. The patient has experienced similar episodes in the past, a few times. Historical: - Allergies: 09:30 No Known Allergies; iw - Home Meds: 09:30 Propranolol Oral once daily [Active]; iw - PMHx: 09:30 Anxiety; Kidney stones; Migraine; iw - PSHx: 09:30 None; iw - Immunization history:: Adult Immunizations not up to date. - Social history:: Smoking status: Patient uses tobacco products, smokes one pack cigarettes per day. - Ebola Screening: : Patient negative for fever greater than or equal to 101.5 degrees Fahrenheit, and additional compatible Ebola Virus Disease symptoms Patient denies exposure to infectious person Patient denies travel to an Ebola-affected area in the 21 days before illness onset No symptoms or risks identified at this time. ROS: 10:08 Constitutional: Negative for fever, chills, and weight loss, Eyes: Negative for injury, toño pain, redness, and discharge, ENT: Negative for injury, pain, and discharge, Neck: Negative for injury, pain, and swelling, Cardiovascular: Negative for chest pain, palpitations, and edema, Respiratory: Negative for shortness of breath, cough, wheezing, and pleuritic chest pain, : Negative for injury, bleeding, discharge, and swelling, MS/Extremity: Negative for injury and deformity, Skin: Negative for injury, rash, and discoloration, Neuro: Negative for headache, weakness, numbness, tingling, and seizure, Psych: Negative for depression, anxiety, suicide ideation, homicidal ideation, and hallucinations, Allergy/Immunology: Negative for hives, rash, and allergies, Endocrine: Negative for neck swelling, polydipsia, polyuria, polyphagia, and marked weight changes, Hematologic/Lymphatic: Negative for swollen nodes, abnormal bleeding, and unusual bruising. 10:08 Abdomen/GI: Positive for abdominal pain, of the anterior aspect of left lateral abdomen and posterior aspect of left lateral abdomen. Exam: 10:08 Constitutional: This is a well developed, well nourished patient who is awake, alert, toño and in no acute distress. Head/Face: Normocephalic, atraumatic. Eyes: Pupils equal round and reactive to light, extra-ocular motions intact. Lids and lashes normal. Conjunctiva and sclera are non-icteric and not injected. Cornea within normal limits. Periorbital areas with no swelling, redness, or edema. ENT: Nares patent. No nasal discharge, no septal abnormalities noted. Tympanic membranes are normal and external auditory canals are clear. Oropharynx with no redness, swelling, or masses, exudates, or evidence of obstruction, uvula midline. Mucous membranes moist. Neck: Trachea midline, no thyromegaly or masses palpated, and no cervical lymphadenopathy. Supple, full range of motion without nuchal rigidity, or vertebral point tenderness. No Meningismus. Chest/axilla: Normal chest wall appearance and motion. Nontender with no deformity. No lesions are appreciated. Cardiovascular: Regular rate and rhythm with a normal S1 and S2. No gallops, murmurs, or rubs. Normal PMI, no JVD. No pulse deficits. Respiratory: Lungs have equal breath sounds bilaterally, clear to auscultation and percussion. No rales, rhonchi or wheezes noted. No increased work of breathing, no retractions or nasal flaring. Male : Normal genitalia with no discharge or lesions. Skin: Warm, dry with normal turgor. Normal color with no rashes, no lesions, and no evidence of cellulitis. MS/ Extremity: Pulses equal, no cyanosis. Neurovascular intact. Full, normal range of motion. Neuro: Awake and alert, GCS 15, oriented to person, place, time, and situation. Cranial nerves II-XII grossly intact. Motor strength 5/5 in all extremities. Sensory grossly intact. Cerebellar exam normal. Normal gait. Psych: Awake, alert, with orientation to person, place and time. Behavior, mood, and affect are within normal limits. 10:08 Abdomen/GI: Inspection: abdomen appears normal, Bowel sounds: normal, Palpation: abdomen is soft and non-tender, Liver: no appreciated palpable abnormalities, Hernia: not appreciated. 10:08 Back: pain, that is moderate, ROM is normal, normal spinal alignment noted, CVA toño tenderness, that is moderate, is noted on the left, muscle spasm, is not present. Vital Signs: 09:30 BP 137 / 96; Pulse 74; Resp 16; Temp 98.6; Pulse Ox 99% on R/A; Weight 81.65 kg; Height iw 5 ft. 7 in. (170.18 cm); Pain 12/08; 09:30 Body Mass Index 28.19 (81.65 kg, 170.18 cm) iw MDM: 09:19 Patient medically screened. [facility] 10:10 Data reviewed: vital signs, nurses notes, lab test result(s), EKG, radiologic studies, [facility] CT scan, plain films. 11/02 09:21 Order name: Basic Metabolic Panel; Complete Time: 10:13 [facility] 11/02 09:21 Order name: CBC with Diff; Complete Time: 10:13 [facility] 11/02 09:21 Order name: Creatinine for Radiology; Complete Time: 10:13 [facility] 11/02 09:21 Order name: Hepatic Function; Complete Time: 10:13 [facility] 11/02 09:21 Order name: Lipase; Complete Time: 10:13 [facility] 11/02 09:24 Order name: Abdomen 1 View (KUB) XRAY; Complete Time: 10:20 [facility] 11/02 09:21 Order name: IV Saline Lock; Complete Time: 09:33 [facility] 11/02 09:21 Order name: Labs collected and sent; Complete Time: 11:07 [facility] Administered Medications: 07:30 Drug: Zofran 4 mg Route: IVP; Site: right antecubital; hb 10:57 Follow up: Response: No adverse reaction ph 09:30 Drug: TORadol 30 mg Route: IVP; Infused Over: 1 mins; Site: right antecubital; hb 09:45 Follow up: Response: No adverse reaction; Pain is decreased ph 09:40 Drug: NS 0.9% 1000 ml Route: IV; Rate: 1 bolus; Site: right antecubital; hb 10:57 Follow up: Response: No adverse reaction; IV Status: Completed infusion; IV Intake: ph 1000ml 10:10 Drug: morphine 4 mg Route: IVP; Site: right antecubital; ph 10:57 Follow up: Response: No adverse reaction; Pain is decreased ph 10:45 Drug: NS 0.9% 1000 ml Route: IV; Rate: 1 bolus; Site: right antecubital; ph 11:50 Follow up: Response: No adverse reaction; IV Status: Completed infusion; IV Intake: ph 1000ml 10:48 Drug: Flomax 0.4 mg Route: PO; ph 10:58 Follow up: Response: No adverse reaction ph 10:50 Drug: Rocephin - (cefTRIAXone) 1 grams Route: IVPB; Infused Over: 30 mins; Site: right ph antecubital; 10:57 Follow up: Response: No adverse reaction; IV Status: Completed infusion ph 11:55 Drug: fentaNYL (PF) 25 mcg Route: IVP; Site: right antecubital; ph 12:07 Follow up: Response: No adverse reaction; Pain is decreased ph Disposition: 11/02/18 10:26 Discharged to Home. Impression: Hydronephrosis with renal and ureteral calculous obstruction. - Condition is Stable. - Discharge Instructions: Kidney Stones, Kidney Stones, [id number], Hydronephrosis, Dietary Guidelines to Help Prevent Kidney Stones. - Prescriptions for Tylenol- Codeine #3 300-30 mg Oral Tablet - take 2 tablet by ORAL route every 6 hours As needed; 30 tablet. Zofran 4 mg Oral Tablet - take 1 tablet by ORAL route every 12 hours As needed; 20 tablet. Flomax 0.4 mg Oral Capsule, Sust. Release 24 hr - take 1 capsule by ORAL route once daily 1/2 hour following the same meal each day; 30 capsule. Cipro 500 mg Oral Tablet - take 1 tablet by ORAL route every 12 hours for 7 days; 14 tablet. - Medication Reconciliation Form, Thank You Letter, Antibiotic Education, Prescription Opioid Use form. - Follow up: Private Physician; When: 2 - 3 days; Reason: Recheck today's complaints, Continuance of care, Re-evaluation by your physician. Follow up: Mayra Sandoval; When: 2 - 3 days; Reason: Recheck today's complaints, Re-evaluation by your physician. - Problem is new. - Symptoms have improved. Signatures: Dispatcher [employer] [facility] Elia Martinez MD MD cha Williams, Irene, GASTON FELDMAN Wendie Brady RN RN ph Baxter, Heather, GASTON FELDMAN Corrections: (The following items were deleted from the chart) 09:28 09:23 Stone Protocol+CT.RAD.BRZ ordered. [facility] 12:09 10:26 11/02/2018 10:26 Discharged to Home. Impression: Hydronephrosis with renal and ph ureteral calculous obstruction. Condition is Stable. Discharge Instructions: Kidney Stones, Kidney Stones, [id number], Hydronephrosis, Dietary Guidelines to Help Prevent Kidney Stones. Prescriptions for Tylenol-Codeine #3 300-30 mg Oral Tablet - take 2 tablet by ORAL route every 6 hours As needed; 30 tablet, Zofran 4 mg Oral Tablet - take 1 tablet by ORAL route every 12 hours As needed; 20 tablet, Flomax 0.4 mg Oral Capsule, Sust. Release 24 hr - take 1 capsule by ORAL route once daily 1/2 hour following the same meal each day; 30 capsule, Cipro 500 mg Oral Tablet - take 1 tablet by ORAL route every 12 hours for 7 days; 14 tablet. and Forms are Medication Reconciliation Form, Thank You Letter, Antibiotic Education, Prescription Opioid Use. Follow up: Private Physician; When: 2 - 3 days; Reason: Recheck today's complaints, Continuance of care, Re-evaluation by your physician. Follow up: Mayra Sandoval; When: 2 - 3 days; Reason: Recheck today's complaints, Re-evaluation by your physician. Problem is new. Symptoms have improved. toño
[2018-11-02] MEDS ORDERED: CEFTRIAXONE/SWI 1gm 1 GM/10 ML SYR ONE (10:43)
[2018-11-02] MEDS ORDERED: TAMSULOSIN 0.4 MG SR CAP ONE (10:43)
[2018-11-02] MEDS ORDERED: FENTANYL CITR 100 MCG/2 ML ONE (12:03)
[2018-11-02 12:25] VITALS: BP 137/96; TEMP 98.6; O2SAT 99
== END 2018-11-02 12:09 | disposition home or self-care (01) ==
LOC: ER 09:08
DX: N13.2 Hydronephrosis with renal and ureteral calculous obstruction (principal); F41.9 Anxiety disorder, unspecified; F17.210 Nicotine dependence, cigarettes, uncomplicated; Z87.442 Personal history of urinary calculi
CPT/HCPCS: 36415; 74018; 80048; 80076; 83690; 85025; 96361; 96374; 96375; 99284; J0696; J2405; J3010; J7030

== ENCOUNTER 2018-11-04 22:59 | Emergency (ER) | payer BC ==
[2018-11-05 00:05] LABS: Absolute Lymphocytes (CBC) 2.4 K/uL (0.7-4.9); Basophils % 0.8 % (0-1.3); Hematocrit 42.9 % (39.6-49.0); Lymphocytes % 28.9 % (15.3-44.8); MPV 7.5 fL (7.6-11.3); Monocytes % 6.2 % (3.3-12.3); RBC Red Blood Cell Count 4.66 M/uL (4.33-5.43)
[2018-11-05 00:13] LABS: Albumin 3.9 g/dL (3.4-5.0); Bilirubin Direct 0.1 mg/dL (0-0.2); Bilirubin Total 0.4 mg/dL (0.2-1.0); Protein, Total 6.9 g/dL (6.4-8.2)
[2018-11-05] MEDS ORDERED: NA CHLORIDE 0.9% 1,000 ML ONE (00:22)
[2018-11-05] MEDS ORDERED: KETOROLAC 30 MG/ML INJ ONE (00:39)
[2018-11-05] MEDS ORDERED: FENTANYL CITR 100 MCG/2 ML ONE (01:33)
--- NOTE | 2018-11-05 01:59 | EDPHYS ---
Physician Documentation [facility] Name: Justin Smith Age: 28 yrs Sex: Male : 1990 Arrival Date: 11/04/2018 Time: 23:01 Bed 24 Private MD: ED Physician Jesus Kingston HPI: 11/05 01:51 This 28 yrs old Male presents to ER via Wheelchair with complaints of Flank snw Pain. 01:51 The patient complains of pain in the left low back. The pain does not radiate. Onset: snw The symptoms/episode began/occurred 1 week(s) ago, and became persistent. Associated signs and symptoms: Pertinent positives: nausea. Severity of pain: At its worst the pain was moderate severe. The patient has not experienced similar symptoms in the past. The patient has been recently seen by a physician: The patient has been recently seen at the [facility] Emergency Department, for similar complaints labs were performed, X-rays were performed, CT scan was performed, to f/u Dr. Jaime latham, has not had opportunity to f/u. Historical: - Allergies: 11/04 23:04 No Known Allergies; la1 - Home Meds: 23:36 Propranolol Oral once daily [Active]; ak1 - PMHx: 23:04 Anxiety; Kidney stones; Migraine; la1 - PSHx: 23:36 None; ak1 - Immunization history:: Adult Immunizations up to date. - Social history:: Smoking status: Patient uses tobacco products, smokes one-half pack cigarettes per day. - Ebola Screening: : No symptoms or risks identified at this time. ROS: 11/05 01:50 Constitutional: Negative for fever, chills, and weight loss, Eyes: Negative for injury, snw pain, redness, and discharge, ENT: Negative for injury, pain, and discharge, Neck: Negative for injury, pain, and swelling, Cardiovascular: Negative for chest pain, palpitations, and edema, Respiratory: Negative for shortness of breath, cough, wheezing, and pleuritic chest pain, Abdomen/GI: Negative for abdominal pain, nausea, vomiting, diarrhea, and constipation, Back: Negative for injury. Left flank pain : Negative for injury, bleeding, discharge, and swelling, MS/Extremity: Negative for injury and deformity, Skin: Negative for injury, rash, and discoloration, Neuro: Negative for headache, weakness, numbness, tingling, and seizure, Psych: Negative for depression, anxiety, suicide ideation, homicidal ideation, and hallucinations. Exam: 01:50 Constitutional: This is a well developed, well nourished patient who is awake, alert, snw and in no acute distress. Head/Face: Normocephalic, atraumatic. Eyes: Pupils equal round and reactive to light, extra-ocular motions intact. Lids and lashes normal. Conjunctiva and sclera are non-icteric and not injected. Cornea within normal limits. Periorbital areas with no swelling, redness, or edema. ENT: Nares patent. No nasal discharge, no septal abnormalities noted. Tympanic membranes are normal and external auditory canals are clear. Oropharynx with no redness, swelling, or masses, exudates, or evidence of obstruction, uvula midline. Mucous membranes moist. Neck: Trachea midline, no thyromegaly or masses palpated, and no cervical lymphadenopathy. Supple, full range of motion without nuchal rigidity, or vertebral point tenderness. No Meningismus. Chest/axilla: Normal chest wall appearance and motion. Nontender with no deformity. No lesions are appreciated. Cardiovascular: Regular rate and rhythm with a normal S1 and S2. No gallops, murmurs, or rubs. Normal PMI, no JVD. No pulse deficits. Respiratory: Lungs have equal breath sounds bilaterally, clear to auscultation and percussion. No rales, rhonchi or wheezes noted. No increased work of breathing, no retractions or nasal flaring. Abdomen/GI: Soft, non-tender, with normal bowel sounds. No distension or tympany. No guarding or rebound. No evidence of tenderness throughout. Back: No spinal tenderness. No costovertebral tenderness. Full range of motion. Skin: Warm, dry with normal turgor. Normal color with no rashes, no lesions, and no evidence of cellulitis. MS/ Extremity: Pulses equal, no cyanosis. Neurovascular intact. Full, normal range of motion. Neuro: Awake and alert, GCS 15, oriented to person, place, time, and situation. Cranial nerves II-XII grossly intact. Motor strength 5/5 in all extremities. Sensory grossly intact. Cerebellar exam normal. Normal gait. Psych: Awake, alert, with orientation to person, place and time. Behavior, mood, and affect are within normal limits. Vital Signs: 11/04 23:04 BP 148 / 98; Pulse 78; Resp 16; Temp 98.1; Pulse Ox 98% on R/A; Weight 83.91 kg; Height la1 5 ft. 7 in. (170.18 cm); Pain 8/10; 23:32 BP 130 / 83; Pulse 71; Resp 16; Pulse Ox 98% on R/A; ak1 11/05 02:29 BP 124 / 90; Pulse 71; Resp 16; Temp 98.3; Pulse Ox 98% on R/A; Pain 4/10; ak1 11/04 23:04 Body Mass Index 28.97 (83.91 kg, 170.18 cm) la1 MDM: 11/04 23:31 Patient medically screened. mt 11/05 02:01 Data reviewed: vital signs, nurses notes. Data interpreted: Pulse oximetry: on room air snw is 98 %. Interpretation: normal. Counseling: I had a detailed discussion with the patient and/or guardian regarding: the historical points, exam findings, and any diagnostic results supporting the discharge/admit diagnosis, lab results, radiology results, the need for outpatient follow up, to return to the emergency department if symptoms worsen or persist or if there are any questions or concerns that arise at home. Special discussion: Based on the patient's Hx, exam, and Dx evaluation, there is no indication for emergent surgery or inpatient Tx. It is understood by the patient/guardian that if the Sx's persist or worsen they need to return immediately for re-evaluation. Based on the history and exam findings, there is no indication for further emergent testing or inpatient evaluation. I discussed with the patient/guardian the need to see the primary care provider for further evaluation of the symptoms. I discussed with the patient/guardian the need to see the urologist for further evaluation of the symptoms. 11/04 23:31 Order name: Basic Metabolic Panel snw 11/04 23:31 Order name: CBC with Diff; Complete Time: 00:42 snw 11/04 23:31 Order name: Creatinine for Radiology; Complete Time: 00:12 snw 11/04 23:31 Order name: Hepatic Function; Complete Time: 00:42 snw 11/04 23:31 Order name: Lipase; Complete Time: 00:42 snw 11/04 23:33 Order name: Basic Metabolic Panel; Complete Time: 00:42 EDMS 11/04 23:31 Order name: Abdomen 1 View (KUB) XRAY snw 11/04 23:31 Order name: IV Saline Lock; Complete Time: 23:47 snw 11/04 23:31 Order name: Labs collected and sent; Complete Time: 23:47 snw Administered Medications: 00:14 Drug: NS 0.9% 1000 ml Route: IV; Rate: 1 bolus; Site: right antecubital; ak1 00:57 Follow up: IV Status: Completed infusion; IV Intake: 1000ml ak1 00:27 Drug: TORadol - Ketorolac 15 mg Route: IVP; Site: right antecubital; ak1 00:58 Follow up: Response: No adverse reaction ak1 01:24 Drug: fentaNYL (PF) 25 mcg Route: IVP; Site: right antecubital; 02:17 Follow up: Response: No adverse reaction; Pain is decreased ak1 Disposition: 11/05/18 01:57 Discharged to Home. Impression: Unspecified renal colic, Kidney stones. - Condition is Stable. - Discharge Instructions: Kidney Stones, Renal Colic, Dietary Guidelines to Help Prevent Kidney Stones, Rehydration, Adult. - Prescriptions for Ultram 50 mg Oral Tablet - take 1 tablet by ORAL route every 6 hours As needed; 12 tablet. - Work release form, Medication Reconciliation Form, Thank You Letter, Antibiotic Education, Prescription Opioid Use form. - Follow up: Mayra Sandoval MD; When: 1 - 2 days; Reason: Recheck today's complaints, Continuance of care. - Problem is an ongoing problem. - Symptoms have improved. Signatures: Dispatcher [employer] EDHaley Aparicio, Anni Chauhan RN, ch, MID LEVEL BUSINESS ANALYST-C MID LEVEL BUSINESS ANALYST-Csnw Aravind Villanueva RN RN la1 Krenek, Amber, RN RN [email or web address] Jesus Kingston MD MD wa Corrections: (The following items were deleted from the chart) 02:30 01:57 11/05/2018 01:57 Discharged to Home. Impression: Unspecified renal colic; Kidney ak1 stones. Condition is Stable. Forms are Medication Reconciliation Form, Thank You Letter, Antibiotic Education, Prescription Opioid Use. Follow up: Mayra Sandoval; When: 1 - 2 days; Reason: Recheck today's complaints, Continuance of care. Problem is an ongoing problem. Symptoms have improved. snw
--- NOTE | 2018-11-05 01:59 | ER ---
Nurse's Notes [facility] Name: Justin Smith Age: 28 yrs Sex: Male : 1990 Arrival Date: 11/04/2018 Time: 23:01 Bed 24 Private MD: Diagnosis: Unspecified renal colic;Kidney stones Presentation: 11/04 23:03 Presenting complaint: Patient states: I have a 5mm left kidney stone and the pain is la1 unbearable, denies fever or vomiting. Transition of care: patient was not received from another setting of care. Onset of symptoms was November 04, 2018. Risk Assessment: Do you want to hurt yourself or someone else? Patient reports no desire to harm self or others. Initial Sepsis Screen: Does the patient meet any 2 criteria? No. Patient's initial sepsis screen is negative. Does the patient have a suspected source of infection? No. Patient's initial sepsis screen is negative. Care prior to arrival: None. 23:03 Method Of Arrival: Wheelchair la1 23:03 Acuity: IFEANYI 3 la1 Historical: - Allergies: 23:04 No Known Allergies; la1 - Home Meds: 23:36 Propranolol Oral once daily [Active]; ak1 - PMHx: 23:04 Anxiety; Kidney stones; Migraine; la1 - PSHx: 23:36 None; ak1 - Immunization history:: Adult Immunizations up to date. - Social history:: Smoking status: Patient uses tobacco products, smokes one-half pack cigarettes per day. - Ebola Screening: : No symptoms or risks identified at this time. Screenin:32 Abuse screen: Denies threats or abuse. Denies injuries from another. Nutritional ak1 screening: No deficits noted. Tuberculosis screening: No symptoms or risk factors identified. Fall Risk None identified. Assessment: 23:33 General: Appears in no apparent distress. uncomfortable, Behavior is anxious. Pain: ak1 Complains of pain in flank pain. Neuro: No deficits noted. Cardiovascular: No deficits noted. Respiratory: No deficits noted. GI: No signs and/or symptoms were reported involving the gastrointestinal system. : Reports pain flank(s), pt seen in ER 2 other occasions this week for same s/s. EENT: No signs and/or symptoms were reported regarding the EENT system. Derm: No signs and/or symptoms reported regarding the dermatologic system. Musculoskeletal: No signs and/or symptoms reported regarding the musculoskeletal system. 11/05 00:15 Reassessment: pt requesting Toradol, ERP notified with verbal orders to wait for kidney ak1 function labs to result. pt informed of wait for kidney function labs is 10 minuets per Eugenio in the lab. 02:29 Reassessment: Patient appears in no apparent distress at this time. No changes from ak1 previously documented assessment. Patient and/or family updated on plan of care and expected duration. Pain level reassessed. Patient is alert, oriented x 3, equal unlabored respirations, skin warm/dry/pink. Patient states feeling better. Patient states symptoms have improved. Vital Signs: 11/04 23:04 BP 148 / 98; Pulse 78; Resp 16; Temp 98.1; Pulse Ox 98% on R/A; Weight 83.91 kg; Height la1 5 ft. 7 in. (170.18 cm); Pain 8/10; 23:32 BP 130 / 83; Pulse 71; Resp 16; Pulse Ox 98% on R/A; ak1 11/05 02:29 BP 124 / 90; Pulse 71; Resp 16; Temp 98.3; Pulse Ox 98% on R/A; Pain 4/10; ak1 11/04 23:04 Body Mass Index 28.97 (83.91 kg, 170.18 cm) la1 ED Course: 11/04 23:01 Patient arrived in ED. am2 23:04 Triage completed. la1 23:05 Arm band placed on left wrist. la1 23:13 Bed in low position. Call light in reach. Side rails up X 1. Side rails up X2. Warm jp3 blanket given. Verbal reassurance given. Pulse ox on. NIBP on. 23:30 Milana Ramirez, RN is Primary Nurse. ak1 23:31 Jesus Kingston MD is Attending Physician. wa 23:32 [facility]augh [facility]-C [facility]. snw 23:40 Initial lab(s) drawn, by me, sent to lab. Inserted saline lock: 20 gauge in right jp3 antecubital area, using aseptic technique. Blood collected. 23:47 Basic Metabolic Panel Sent. jp3 23:47 CBC with Diff Sent. jp3 23:47 Creatinine for Radiology Sent. jp3 23:47 Hepatic Function Sent. jp3 23:47 Lipase Sent. jp3 11/05 00:26 Abdomen 1 View (KUB) XRAY In Process Unspecified. EDMS 01:52 Mayra Sandoval MD is Referral Physician. snw 02:17 No provider procedures requiring assistance completed. IV discontinued, intact, ak1 bleeding controlled, No redness/swelling at site. Pressure dressing applied. Administered Medications: 00:14 Drug: NS 0.9% 1000 ml Route: IV; Rate: 1 bolus; Site: right antecubital; ak1 00:57 Follow up: IV Status: Completed infusion; IV Intake: 1000ml ak1 00:27 Drug: TORadol - Ketorolac 15 mg Route: IVP; Site: right antecubital; ak1 00:58 Follow up: Response: No adverse reaction ak1 01:24 Drug: fentaNYL (PF) 25 mcg Route: IVP; Site: right antecubital; ch 02:17 Follow up: Response: No adverse reaction; Pain is decreased ak1 Intake: 00:57 IV: 1000ml; Total: 1000ml. ak1 Outcome: 01:57 Discharge ordered by . snw 02:17 Discharged to home ambulatory, with family. ak1 02:17 Condition: good 02:17 Discharge instructions given to patient, family, Instructed on discharge instructions, follow up and referral plans. no drinking with medication, no driving heavy equipment, medication usage, Demonstrated understanding of instructions, follow-up care, medications, Prescriptions given X 1. 02:30 Patient left the ED. ak1 Signatures: Dispatcher [employer] EDWI Haley Sanchez, RN RN Anni Welsh, NEGATIVE TURNER-C NEGATIVE TURNER-Csnw Aravind Villanueva RN RN Milana Oliva RN RN ak1 Susy Arevalo am2 Jesus Kingston MD MD wa Pisarski, Jacob jp3
[2018-11-05 03:28] VITALS: O2SAT 98
[2018-11-05 03:31] VITALS: BP 124/90; TEMP 98.3
--- NOTE | 2018-11-05 09:05 | RAD REPORT ---
EXAM DESCRIPTION: RAD - Abdomen 1 View (KUB) - 11/05/2018 12:26 am CLINICAL HISTORY: Kidney stones, flank pain COMPARISON: KUB November 02, CT study November 02 FINDINGS: Bowel gas pattern is non-specific. No obstruction, free air or pneumatosis. Small rounded calcification is present in the left mid abdomen between the L4 and L5 left-side transverse processe s. This would indicate a slight distal migration of a previously detailed mid ureter stone. There is a calcific density in the low midline pelvis. This is felt to be larger than the kidney stone. Howeve r, this was not present on the November 02 KUB. No significant bony findings IMPRESSION: Previously detailed left mid ureter kidney stone is still present showing 1- 2 cm of dis jeremias migration. Calcific density over the midline pelvis is present new from prior imaging. This may be a summation a rtifact. This calcific density is believed to be larger than the stone. As clinical findings warrant, CT stone protocol study can be repeated to more sensitively assess for ureteral and bladder calculi.
== END 2018-11-05 02:30 | disposition home or self-care (01) ==
LOC: ER 22:59
DX: N20.0 Calculus of kidney (principal); F41.9 Anxiety disorder, unspecified; F17.210 Nicotine dependence, cigarettes, uncomplicated
CPT/HCPCS: 36415; 74018; 80048; 80076; 83690; 85025; 96361; 96374; 96375; 99284; J3010; J7030

== ENCOUNTER 2018-11-08 03:21 | Emergency (ER) | payer BC ==
[2018-11-08] MEDS ORDERED: NA CHLORIDE 0.9% 1,000 ML ONE (03:57)
[2018-11-08] MEDS ORDERED: MORPHINE 4 MG/ML SYR ONE (03:57)
[2018-11-08] MEDS ORDERED: ONDANSETRON 4 MG/2 ML VIAL ONE ×2 (03:59→04:30)
[2018-11-08] MEDS ORDERED: KETOROLAC 30 MG/ML INJ ONE (04:28)
[2018-11-08 04:37] LABS: Absolute Lymphocytes (CBC) 2.4 K/uL (0.7-4.9); Basophils % 0.7 % (0-1.3); Eosinophils % 4.8 % (0-4.4); Hematocrit 44.9 % (39.6-49.0); Lymphocytes % 25.9 % (15.3-44.8); MPV 7.4 fL (7.6-11.3); Monocytes % 7.5 % (3.3-12.3); RBC Red Blood Cell Count 4.86 M/uL (4.33-5.43)
[2018-11-08 04:46] LABS: Albumin 4.2 g/dL (3.4-5.0); Bilirubin Direct 0.1 mg/dL (0-0.2); Bilirubin Total 0.7 mg/dL (0.2-1.0); Potassium 3.9 mmol/L (3.5-5.1); Protein, Total 7.7 g/dL (6.4-8.2)
--- NOTE | 2018-11-08 05:28 | EDPHYS ---
Physician Documentation [facility] Name: Justin Smith Age: 28 yrs Sex: Male : 1990 Arrival Date: 11/08/2018 Time: 03:24 Bed 20 Private MD: ED Physician Priya Jensen HPI: 11/08 05:27 This 28 yrs old Male presents to ER via Wheelchair with complaints of Flank ma2 Pain. 05:27 The patient complains of pain in the left mid back. Onset: The symptoms/episode ma2 began/occurred gradually, 1 day(s) ago. Associated signs and symptoms: Pertinent negatives: dysuria, urinary frequency, headache, hematuria. Severity of pain: At its worst the pain was moderate in the emergency department the pain is unchanged. The patient has experienced similar episodes in the past. Historical: - Allergies: 03:32 No Known Allergies; tl2 - Home Meds: 03:32 Propranolol Oral once daily [Active]; tl2 - PMHx: 03:32 Anxiety; Kidney stones; Migraine; tl2 - PSHx: 03:32 None; tl2 - Immunization history:: Adult Immunizations up to date. - Social history:: Smoking status: Patient uses tobacco products, smokes one-half pack cigarettes per day, Patient/guardian denies using alcohol, street drugs, The patient lives with family. - Ebola Screening: : No symptoms or risks identified at this time. - Family history:: not pertinent. ROS: 05:27 Constitutional: Negative for fever, chills, and weight loss. ma2 05:27 All other systems are negative. Exam: 05:27 Constitutional: This is a well developed, well nourished patient who is awake, alert, ma2 and in no acute distress. ENT: Nares patent. No nasal discharge, no septal abnormalities noted. Tympanic membranes are normal and external auditory canals are clear. Oropharynx with no redness, swelling, or masses, exudates, or evidence of obstruction, uvula midline. Mucous membranes moist. Chest/axilla: Normal chest wall appearance and motion. Nontender with no deformity. No lesions are appreciated. Cardiovascular: Regular rate and rhythm with a normal S1 and S2. No gallops, murmurs, or rubs. Normal PMI, no JVD. No pulse deficits. Respiratory: Lungs have equal breath sounds bilaterally, clear to auscultation and percussion. No rales, rhonchi or wheezes noted. No increased work of breathing, no retractions or nasal flaring. Abdomen/GI: Soft, non-tender, with normal bowel sounds. No distension or tympany. No guarding or rebound. No evidence of tenderness throughout. Male : Normal genitalia with no discharge or lesions. Vital Signs: 03:32 BP 140 / 104; Pulse 78; Resp 18; Temp 97.9(O); Pulse Ox 98% on R/A; Weight 81.65 kg; tl2 Height 5 ft. 7 in. (170.18 cm); Pain 10/10; 04:38 BP 131 / 90; Pulse 68; Resp 18; Pulse Ox 100% on R/A; tl2 03:32 Body Mass Index 28.19 (81.65 kg, 170.18 cm) tl2 MDM: 03:31 Patient medically screened. ut2 05:27 Differential diagnosis: nephrolithiasis, pyelonephritis, UTI. Data reviewed: vital [facility] signs, nurses notes. Counseling: I had a detailed discussion with the patient and/or guardian regarding: the historical points, exam findings, and any diagnostic results supporting the discharge/admit diagnosis, the presence of at least one elevated blood pressure reading (>120/80) during this emergency department visit, radiology results, the need for outpatient follow up. Response to treatment: the patient's symptoms have resolved after treatment. 11/08 03:32 Order name: Basic Metabolic Panel [facility] 11/08 03:32 Order name: CBC with Diff [facility] 11/08 03:32 Order name: Creatinine for Radiology [facility] 11/08 03:32 Order name: Hepatic Function [facility] 11/08 03:32 Order name: Lipase; Complete Time: 04:49 [facility] 11/08 03:32 Order name: Basic Metabolic Panel; Complete Time: 04:49 EDMS 11/08 03:32 Order name: Stone Protocol CT [facility] 11/08 03:32 Order name: CBC with Automated Diff; Complete Time: 04:49 EDAZ 11/08 03:32 Order name: Creatinine (Radiology Only); Complete Time: 04:49 EDAZ 11/08 03:32 Order name: Liver (Hepatic) Function; Complete Time: 04:49 EDMS 11/08 05:39 Order name: Urine Dipstick--Ancillary (enter results) ar5 11/08 03:32 Order name: IV Saline Lock; Complete Time: 03:39 ma2 11/08 03:32 Order name: Labs collected and sent; Complete Time: 03:39 ma2 11/08 03:32 Order name: Urine Dipstick-Ancillary (obtain specimen); Complete Time: 05:04 ma2 Administered Medications: 03:49 Drug: NS 0.9% 1000 ml Route: IV; Rate: 1 bolus; Site: right antecubital; tl2 05:00 Follow up: IV Status: Completed infusion; IV Intake: 1000ml tl2 03:49 Drug: morphine 4 mg Route: IVP; Site: right antecubital; tl2 04:16 Follow up: Response: No adverse reaction; Pain is unchanged, physician notified tl2 03:49 Drug: Zofran 4 mg Route: IVP; Site: right antecubital; tl2 04:16 Follow up: Response: No adverse reaction; Nausea unchanged tl2 04:19 Drug: Zofran 4 mg Route: IVP; Site: right antecubital; tl2 05:04 Follow up: Response: No adverse reaction; Nausea is decreased tl2 04:19 Drug: TORadol 30 mg Route: IVP; Site: right antecubital; tl2 05:05 Follow up: Response: No adverse reaction; Pain is decreased tl2 05:48 Drug: fentaNYL (PF) 50 mcg Route: IVP; Site: right antecubital; tl2 05:50 Follow up: Response: No adverse reaction; Medication administered at discharge. tl2 Disposition: 11/08/18 05:28 Discharged to Home. Impression: Calculus of urinary tract in diseases classified elsewhere. - Condition is Stable. - Discharge Instructions: Kidney Stones, Lithotripsy. - Prescriptions for Flomax 0.4 mg Oral Capsule, Sust. Release 24 hr - take 1 capsule by ORAL route once daily 1/2 hour following the same meal each day; 30 capsule. Tramadol 50 mg Oral Tablet - take 1 tablet by ORAL route every 8 hours as needed; 12 tablet. - Medication Reconciliation Form, Thank You Letter, Antibiotic Education, Prescription Opioid Use form. - Follow up: Mayra Sandoval; When: Tomorrow; Reason: Continuance of care. Signatures: Dispatcher [employer] Patricia Collins RN RN tl2 Priya Jensen MD MD ma2 Corrections: (The following items were deleted from the chart) 05:50 05:28 11/08/2018 05:28 Discharged to Home. Impression: Calculus of urinary tract in tl2 diseases classified elsewhere. Condition is Stable. Discharge Instructions: Kidney Stones, Lithotripsy. Prescriptions for Flomax 0.4 mg Oral Capsule, Sust. Release 24 hr - take 1 capsule by ORAL route once daily 1/2 hour following the same meal each day; 30 capsule, Tramadol 50 mg Oral Tablet - take 1 tablet by ORAL route every 8 hours as needed; 12 tablet. and Forms are Medication Reconciliation Form, Thank You Letter, Antibiotic Education, Prescription Opioid Use. Follow up: Mayra Sandoval; When: Tomorrow; Reason: Continuance of care. ma2
--- NOTE | 2018-11-08 05:28 | ER ---
Nurse's Notes [facility] Name: Justin Smith Age: 28 yrs Sex: Male : 1990 Arrival Date: 11/08/2018 Time: 03:24 Bed 20 Private MD: Diagnosis: Calculus of urinary tract in diseases classified elsewhere Presentation: 11/08 03:29 Presenting complaint: Patient states: Seen a few days ago and diagnosed with 5 mm tl2 kidney stone, scheduled to have lithotripsy on Monday but pain is severe tonight. Transition of care: patient was not received from another setting of care. Onset of symptoms was November 08, 2018. Risk Assessment: Do you want to hurt yourself or someone else? Patient reports no desire to harm self or others. Initial Sepsis Screen: Does the patient meet any 2 criteria? No. Patient's initial sepsis screen is negative. Does the patient have a suspected source of infection? No. Patient's initial sepsis screen is negative. Care prior to arrival: None. 03:29 Method Of Arrival: Wheelchair tl2 03:29 Acuity: IFEANYI 3 tl2 Triage Assessment: 03:32 General: Appears in no apparent distress. uncomfortable, Behavior is agitated, anxious. tl2 Pain: Complains of pain in left flank. Pain: Pain currently is 10 out of 10 on a pain scale. Neuro: Level of Consciousness is awake, alert, obeys commands, Oriented to person, place, time, situation. Respiratory: Airway is patent Respiratory effort is even, unlabored, Respiratory pattern is regular, symmetrical. GI: Reports nausea, vomiting. : Denies inability to void. Derm: Skin is pink, warm \T\ dry. Historical: - Allergies: 03:32 No Known Allergies; tl2 - Home Meds: 03:32 Propranolol Oral once daily [Active]; tl2 - PMHx: 03:32 Anxiety; Kidney stones; Migraine; tl2 - PSHx: 03:32 None; tl2 - Immunization history:: Adult Immunizations up to date. - Social history:: Smoking status: Patient uses tobacco products, smokes one-half pack cigarettes per day, Patient/guardian denies using alcohol, street drugs, The patient lives with family. - Ebola Screening: : No symptoms or risks identified at this time. - Family history:: not pertinent. Screenin:38 Abuse screen: Denies threats or abuse. Nutritional screening: No deficits noted. tl2 Tuberculosis screening: No symptoms or risk factors identified. Fall Risk None identified. Assessment: 03:32 General: see triage assessment. tl2 04:38 Reassessment: Patient appears in no apparent distress at this time. Patient and/or tl2 family updated on plan of care and expected duration. Pain level reassessed. Patient is alert, oriented x 3, equal unlabored respirations, skin warm/dry/pink. Patient states feeling better. 05:49 Reassessment: Patient appears in no apparent distress at this time. Patient and/or tl2 family updated on plan of care and expected duration. Pain level reassessed. Patient is alert, oriented x 3, equal unlabored respirations, skin warm/dry/pink. pt verbalized understanding of discharge instructions, need for follow up and prescription usage Patient states feeling better. Vital Signs: 03:32 BP 140 / 104; Pulse 78; Resp 18; Temp 97.9(O); Pulse Ox 98% on R/A; Weight 81.65 kg; tl2 Height 5 ft. 7 in. (170.18 cm); Pain 10/10; 04:38 BP 131 / 90; Pulse 68; Resp 18; Pulse Ox 100% on R/A; tl2 03:32 Body Mass Index 28.19 (81.65 kg, 170.18 cm) tl2 ED Course: 03:24 Patient arrived in ED. ag3 03:29 Patricia Lowe, RN is Primary Nurse. tl2 03:31 Priya Jensen MD is Attending Physician. ma2 03:31 Triage completed. tl2 03:32 Arm band placed on right wrist. tl2 03:35 Inserted saline lock: 20 gauge in right antecubital area, using aseptic technique. [id number] Blood collected. 03:38 Patient has correct armband on for positive identification. Bed in low position. Call tl2 light in reach. Side rails up X 1. Adult w/ patient. 04:16 CT completed. Patient tolerated procedure well. Patient moved to CT via wheelchair. eh Patient moved back from CT. 04:[address] In Process Unspecified. EDMS 05:28 Mayra Sandoval MD is Referral Physician. ma2 05:49 No provider procedures requiring assistance completed. IV discontinued, intact, tl2 bleeding controlled, No redness/swelling at site. Pressure dressing applied. Administered Medications: 03:49 Drug: NS 0.9% 1000 ml Route: IV; Rate: 1 bolus; Site: right antecubital; tl2 05:00 Follow up: IV Status: Completed infusion; IV Intake: 1000ml tl2 03:49 Drug: morphine 4 mg Route: IVP; Site: right antecubital; tl2 04:16 Follow up: Response: No adverse reaction; Pain is unchanged, physician notified tl2 03:49 Drug: Zofran 4 mg Route: IVP; Site: right antecubital; tl2 04:16 Follow up: Response: No adverse reaction; Nausea unchanged tl2 04:19 Drug: Zofran 4 mg Route: IVP; Site: right antecubital; tl2 05:04 Follow up: Response: No adverse reaction; Nausea is decreased tl2 04:19 Drug: TORadol 30 mg Route: IVP; Site: right antecubital; tl2 05:05 Follow up: Response: No adverse reaction; Pain is decreased tl2 05:48 Drug: fentaNYL (PF) 50 mcg Route: IVP; Site: right antecubital; tl2 05:50 Follow up: Response: No adverse reaction; Medication administered at discharge. tl2 Intake: 05:00 IV: 1000ml; Total: 1000ml. tl2 Outcome: 05:28 Discharge ordered by . ma2 05:49 Discharged to home ambulatory, with family. tl2 05:49 Condition: stable 05:49 Discharge instructions given to patient, Instructed on discharge instructions, follow up and referral plans. medication usage, Demonstrated understanding of instructions, follow-up care, medications, Prescriptions given X 2. 05:50 Patient left the ED. tl2 Signatures: Dispatcher [employer] EDMS Desean Moore Taylor, RN RN tl2 Kiki Martin5 Priya Jensen MD MD ma2 Sharlene Garcia ag3
[2018-11-08 05:55] LABS: Urine Blood TRACE (NEG); Urine Glucose NEGATIVE (NEG); Urine Protein NEGATIVE (NEG); Urine Specific Gravity 1.025 (1.005-1.030)
[2018-11-08 05:57] VITALS: TEMP 97.9
[2018-11-08] MEDS ORDERED: FENTANYL CITR 100 MCG/2 ML ONE (05:57)
[2018-11-08 05:58] VITALS: BP 131/90; O2SAT 100
--- NOTE | 2018-11-08 10:21 | RAD REPORT ---
EXAM DESCRIPTION: CT - Stone Protocol - 11/08/2018 4:23 am CLINICAL HISTORY: Left lateral flank pain for one week. Scheduled for lithotripsy. COMPARISON: CT abdomen and pelvis without contrast 11/02/2018. TECHNIQUE: Axial unenhanced [address] imaging of the abdomen and pelvis performed. Reformatted coronal and sagittal images reviewed. A dose reduction technique was utilized with automated exposure control according to patient size. FINDINGS: LOWER THORAX: Clear lung bases. Normal cardiac size. ABDOMEN: LIVER/GALLBLADDER: Normal liver and gallbladder. SPLEEN/PANCREAS: Normal spleen and pancreas. KIDNEYS/ADRENAL GLANDS: Normal adrenal glands. Normal right kidney. Mild dilatation of the left carlito l pelvis. AP pelvis: 1.4 cm, slightly increased. Mild proximal left ureteral dilatation secondary to a mid left ureteral intraluminal 6 mm calculus, unchanged since reference exam. Possible 2 mm inferio r left renal pelvic nonobstructing calculus. RETROPERITONEAL VESSELS/NODES: Normal aorta and inferior vena cava caliber. No adenopathy. BOWEL: Normal stomach, small bowel, right lower quadrant appendix, and colon. MESENTERY/PERITONEUM: No adenopathy, ascites, or free air. PELVIS: BLADDER: Normal bladder. GENITAL ORGANS: Normal prostate. PERITONEUM: No pelvic free fluid or adenopathy. BONES AND SOFT TISSUES: Normal lumbosacral alignment. Normal hips and bony pelvis. Normal soft tissu es. IMPRESSION: Stable position of a 6 mm left mid ureteral stone. Mild left hydronephrosis and proximal ureteral dilatation has slightly increased. Nonobstructing 2 mm inferior left renal pelvic stone is also present.. Electronically signed by: Cecilia Sanchez DO 11/08/2018 4:34 AM CDT Due to temporary technical issues with the PACS/Fluency reporting system, reports are being signed b y the in house radiologist as a courtesy to ensure prompt reporting. The interpreting radiologist is fully responsible for the content of the report.
== END 2018-11-08 05:50 | disposition home or self-care (01) ==
LOC: ER 03:21
DX: N20.9 Urinary calculus, unspecified (principal); F41.9 Anxiety disorder, unspecified; F17.210 Nicotine dependence, cigarettes, uncomplicated; Z87.442 Personal history of urinary calculi
CPT/HCPCS: 36415; 74176; 76377; 80048; 80076; 81003; 83690; 85025; 96361; 96374; 96375; 99284; J2405; J3010; J7030

== ENCOUNTER 2018-11-16 07:56 | Day surgery (SDC) | payer BC ==
[2018-11-16] MEDS ORDERED: KETOROLAC 30 MG/ML INJ ONE (08:34)
[2018-11-16] MEDS ORDERED: FENTANYL CITR 100 MCG/2 ML ONE ×3 (08:34→15:16)
[2018-11-16] MEDS ORDERED: ONDANSETRON 4 MG/2 ML VIAL ONE ×5 (08:35→17:15)
[2018-11-16] MEDS ORDERED: NA CHLORIDE 0.9% 1,000 ML ONE ×2 (08:35→13:20)
[2018-11-16 08:47] LABS: Absolute Lymphocytes (CBC) 1.6 K/uL (0.7-4.9); Basophils % 0.6 % (0-1.3); Eosinophils % 6.8 % (0-4.4); Hematocrit 45.7 % (39.6-49.0); Lymphocytes % 27.7 % (15.3-44.8); MPV 7.6 fL (7.6-11.3); RBC Red Blood Cell Count 4.93 M/uL (4.33-5.43)
[2018-11-16 08:58] LABS: Albumin 4.3 g/dL (3.4-5.0); Bilirubin Direct 0.2 mg/dL (0-0.2); Bilirubin Total 0.9 mg/dL (0.2-1.0); Potassium 4.1 mmol/L (3.5-5.1); Protein, Total 7.9 g/dL (6.4-8.2)
--- NOTE | 2018-11-16 09:51 | RAD REPORT ---
EXAM DESCRIPTION: US - Renal Ultrasound-Limited - 11/16/2018 9:26 am CLINICAL HISTORY: Left flank pain COMPARISON: November 08, 2018 CT scan FINDINGS: Left kidney measures 12 centimeters with a normal echotexture. Mild to moderate left hydro nephrosis is present. Tiny calculus lower pole left kidney IMPRESSION: Mild to moderate left hydronephrosis
--- NOTE | 2018-11-16 10:39 | RAD REPORT ---
EXAM DESCRIPTION: CT - Stone Protocol - 11/16/2018 10:31 am CLINICAL HISTORY: Flank pain. FLANK PAIN COMPARISON: Stone Protocol dated 11/08/2018 TECHNIQUE: Axial images were obtained without oral or IV contrast. Lack of contrast limits solid org an and vascular assessment. The [id number] spans the entirety of the system partially obscuring uppermost abdomen and lung bases. Coronal reformatted images were obtained and reviewed. All CT scans are performed using dose optimization technique as appropriate and may include automated exposure control or mA/KV adjustment according to patient size. FINDINGS: The lower lung wilkerson are clear. Imaged portions of the liver and spleen show no suspicious findings on non-contrast imaging. The panc reas and adrenal glands are normal. No pathologic lymphadenopathy in the abdomen or pelvis. A 6 mm stone (1266 HU) is present mid left ureter with mild left hydronephrosis. Additional punctate stones are seen in the mid and left inferior calyx. No bowel obstruction, free air, free fluid or abscess. Normal appendix noted. No significant bony abnormality. IMPRESSION: 6 mm stone mid left ureter with mild left hydronephrosis noted.
[2018-11-16 10:44] LABS: Urine Blood 3+ (NEG); Urine Glucose NEGATIVE (NEG); Urine Protein 1+ (NEG); Urine Specific Gravity >1.030 (1.005-1.030); Urine pH 5.5 (5.0-7.0)
[2018-11-16 10:51] LABS: Urine Bacteria NONE SEEN /HPF (NONE SEEN); Urine Culture Reflex Order NOT NEEDED; Urine Mucus HEAVY /HPF (NONE SEEN); Urine RBC >50 /HPF (NONE SEEN)
--- NOTE | 2018-11-16 11:30 | ER ---
Nurse's Notes [facility] Name: Justin Smith Age: 28 yrs Sex: Male : 1990 Arrival Date: 11/16/2018 Time: 07:59 Bed 19 Private MD: Diagnosis: Hydronephrosis with renal and ureteral calculous obstruction Presentation: 11/16 08:02 Presenting complaint: Patient states: Low back pain that worsens with activity, reports sg nausea that comes and goes, denies fever/diarrhea at this time, reports having a hx of kidney stones that magy feels like this. Transition of care: patient was not received from another setting of care. Onset of symptoms was November 16, 2018. Risk Assessment: Do you want to hurt yourself or someone else? Patient reports no desire to harm self or others. Initial Sepsis Screen: Does the patient meet any 2 criteria? No. Patient's initial sepsis screen is negative. Does the patient have a suspected source of infection? No. Patient's initial sepsis screen is negative. Care prior to arrival: None. 08:02 Method Of Arrival: Ambulatory sg 08:02 Acuity: IFEANYI 3 sg Historical: - Allergies: 08:02 PENICILLINS; sg - Home Meds: 13:08 Propranolol Oral once daily [Active]; tw2 - PMHx: 08:01 Anxiety; Kidney stones; Migraine; sg - PSHx: 08:01 None; sg - Immunization history:: Adult Immunizations. - Social history:: Smoking status: . - Ebola Screening: : Patient denies travel to an Ebola-affected area in the 21 days before illness onset. Screenin:00 Abuse screen: Denies threats or abuse. Denies injuries from another. Nutritional sg screening: No deficits noted. Tuberculosis screening: No symptoms or risk factors identified. Never had TB. Fall Risk None identified. Assessment: 08:00 General: Appears in no apparent distress. well groomed, well developed, well nourished, sg Behavior is calm, cooperative, appropriate for age. Pain: Complains of pain in left low back and right low back Quality of pain is described as aching, tender. Neuro: Level of Consciousness is awake, alert, obeys commands, Oriented to person, place, time, On Air Personality are equal bilaterally Moves all extremities. Speech is normal, Facial symmetry appears normal. Cardiovascular: Capillary refill is brisk in bilateral fingers Patient's skin is warm and dry. Chest pain is denied. Respiratory: Airway is patent Respiratory effort is even, unlabored, Respiratory pattern is regular, symmetrical. GI: Abdomen is round non-distended. : No signs and/or symptoms were reported regarding the genitourinary system. EENT: No signs and/or symptoms were reported regarding the EENT system. Derm: Skin is pink, warm \T\ dry. Musculoskeletal: Circulation, motion, and sensation intact. Range of motion: intact in all extremities. 10:36 Reassessment: Patient appears in no apparent distress at this time. No changes from tw2 previously documented assessment. Patient and/or family updated on plan of care and expected duration. Pain level reassessed. Patient is alert, oriented x 3, equal unlabored respirations, skin warm/dry/pink. 12:20 Reassessment: Patient appears in no apparent distress at this time. No changes from tw2 previously documented assessment. Patient and/or family updated on plan of care and expected duration. Pain level reassessed. Patient is alert, oriented x 3, equal unlabored respirations, skin warm/dry/pink. 13:07 Reassessment: Patient appears in no apparent distress at this time. No changes from tw2 previously documented assessment. Patient and/or family updated on plan of care and expected duration. Pain level reassessed. Patient is alert, oriented x 3, equal unlabored respirations, skin warm/dry/pink. pt c/o nauseousness, provider notified. 14:13 Reassessment: Patient appears in no apparent distress at this time. No changes from tw2 previously documented assessment. Patient and/or family updated on plan of care and expected duration. Pain level reassessed. Patient is alert, oriented x 3, equal unlabored respirations, skin warm/dry/pink. Vital Signs: 08:12 BP 131 / 100; Pulse 75; Resp 18; Temp 98.1(O); Pulse Ox 99% on R/A; Weight 83.91 kg; mh5 Height 5 ft. 7 in. (170.18 cm); Pain 6/10; 10:35 BP 130 / 92; Pulse 67; Resp 17; Pulse Ox 99% on R/A; tw2 12:20 BP 128 / 91; Pulse 57; Resp 16; Temp 98.3(O); Pulse Ox 100% on R/A; mh5 13:07 BP 124 / 86; Pulse 65; Resp 17; Pulse Ox 100% on R/A; tw2 14:14 BP 127 / 100; Pulse 70; Resp 17; Pulse Ox 99% on R/A; tw2 08:12 Body Mass Index 28.97 (83.91 kg, 170.18 cm) [facility] ED Course: 07:59 Patient arrived in ED. dp 08:00 Santy Manzano, RN is Primary Nurse. sg 08:04 Triage completed. sg 08:04 Arm band placed on. sg 08:05 Patient has correct armband on for positive identification. Bed in low position. Call [facility] light in reach. Adult w/ patient. Pulse ox on. NIBP on. 08:07 Mike Peraza NP is PHCP. pm1 08:07 Kamran Steele MD is Attending Physician. pm1 08:31 Initial lab(s) drawn, by or, sent to lab. Inserted saline lock: 20 gauge in right [facility] antecubital area, using aseptic technique. Blood collected. 09:26 Renal Ultrasound-Limited In Process Unspecified. EDMS 10:20 Basic Metabolic Panel Sent. 5 10:31 CT Stone Protocol In Process Unspecified. EDMS 11:27 Mayra Sandoval MD is Hospitalizing Provider. pm1 14:13 No provider procedures requiring assistance completed. Patient admitted, IV remains in tw2 place. Administered Medications: 08:40 Drug: TORadol 30 mg Route: IVP; Site: right antecubital; sg 12:05 Follow up: Response: No adverse reaction; Pain is decreased tw2 08:40 Drug: fentaNYL (PF) 50 mcg Route: IVP; Site: right antecubital; sg 11:41 Follow up: Response: No adverse reaction; Pain is decreased tw2 08:40 Drug: Zofran 4 mg Route: IVP; Site: right antecubital; sg 11:41 Follow up: Response: No adverse reaction tw2 08:42 Drug: NS 0.9% 1000 ml Route: IV; Rate: 1000 ml; Site: right antecubital; sg 11:41 Follow up: Response: No adverse reaction; IV Status: Completed infusion; IV Intake: tw2 1000ml 11:37 Drug: Cipro 400 mg Volume: 200 ml; Route: IVPB; Infused Over: 60 mins; Site: right tw2 forearm; 12:32 Follow up: Response: No adverse reaction; IV Status: Completed infusion tw2 11:41 Drug: fentaNYL (PF) 50 mcg Route: IVP; Site: right forearm; tw2 12:33 Follow up: Response: No adverse reaction; Pain is decreased tw2 13:00 Drug: NS 0.9% 1000 ml Route: IV; Rate: 100 ml/hr; Site: right antecubital; tw2 13:15 Drug: Zofran 4 mg Route: IVP; Site: right antecubital; tw2 Intake: 11:41 IV: 1000ml; Total: 1000ml. tw2 Outcome: 11:29 Decision to Hospitalize by Provider. pm1 14:13 Admitted to OR accompanied by nurse, via stretcher. tw2 14:13 Condition: stable 14:13 Instructed on the need for admit. 14:14 Patient left the ED. tw2 Signatures: Dispatcher [employer] EDMS Santy Manzano RN RN Mike Peraza, SUPERVISOR CLAIMS SUPERVISOR CLAIMS pm1 Anita Rodas RN RN tw2 Odilia Marroquin Santiago Mijares Corrections: (The following items were deleted from the chart) 08:02 08:01 Allergies: No Known Allergies; delia lin
--- NOTE | 2018-11-16 11:31 | EDPHYS ---
Physician Documentation [facility] Name: Justin Smith Age: 28 yrs Sex: Male : 1990 Arrival Date: 11/16/2018 Time: 07:59 Bed 19 Private MD: ED Physician Kamran Steele HPI: 11/16 08:24 This 28 yrs old Male presents to ER via Ambulatory with complaints of Low pm1 Back Pain, Flank Pain. 08:24 The patient presents with pain that is acute. The symptoms are located in the left low pm1 back. The problem was sustained Left kidney stone. Onset: The symptoms/episode began/occurred 2 week(s) ago. Modifying factors: The patient symptoms are alleviated by nothing, the patient symptoms are aggravated by nothing. Associated signs and symptoms: Pertinent positives: nausea, Pertinent negatives: chest pain, constipation, dysuria, fever, vomiting. Severity of symptoms: in the emergency department the symptoms are actually worse. The patient has experienced similar episodes in the past, several times. The patient has been recently seen by a physician: Dr. Sandoval on Monday. Patient with onset of left flank pain 2 weeks ago and diagnosed with 6 mm ureteral stone. Patient seen multiple times in the ER for same calculous and he followed up with Dr. Sandoval on Monday. Lithotripsy performed on that day and he was without left flank pain until this AM. 08:24 Patient lost his Cipro that he was prescribed on Monday. Has not taken it in at least pm1 two days. Historical: - Allergies: 08:02 PENICILLINS; sg - Home Meds: 13:08 Propranolol Oral once daily [Active]; tw2 - PMHx: 08:01 Anxiety; Kidney stones; Migraine; sg - PSHx: 08:01 None; sg - Immunization history:: Adult Immunizations. - Social history:: Smoking status: . - Ebola Screening: : Patient denies travel to an Ebola-affected area in the 21 days before illness onset. ROS: 08:24 Constitutional: Negative for fever, chills, and weight loss, Eyes: Negative for injury, pm1 pain, redness, and discharge, ENT: Negative for injury, pain, and discharge, Neck: Negative for injury, pain, and swelling. 08:24 Cardiovascular: Negative for chest pain, palpitations, and edema, Respiratory: Negative pm1 for shortness of breath, cough, wheezing, and pleuritic chest pain, Abdomen/GI: Negative for abdominal pain, nausea, vomiting, diarrhea, and constipation. 08:24 Back: Positive for flank pain, on the left. 08:24 MS/Extremity: Negative for injury and deformity, Skin: Negative for injury, rash, and pm1 discoloration, Neuro: Negative for headache, weakness, numbness, tingling, and seizure. 08:24 : Positive for flank pain, Dark urine, Negative for burning with urination. Exam: 08:24 Constitutional: This is a well developed, well nourished patient who is awake, alert, pm1 and in no acute distress. Head/Face: Normocephalic, atraumatic. Neck: Trachea midline, no thyromegaly or masses palpated, and no cervical lymphadenopathy. Supple, full range of motion without nuchal rigidity, or vertebral point tenderness. No Meningismus. Chest/axilla: Normal chest wall appearance and motion. Nontender with no deformity. No lesions are appreciated. Cardiovascular: Regular rate and rhythm with a normal S1 and S2. No gallops, murmurs, or rubs. Normal PMI, no JVD. No pulse deficits. Respiratory: Lungs have equal breath sounds bilaterally, clear to auscultation and percussion. No rales, rhonchi or wheezes noted. No increased work of breathing, no retractions or nasal flaring. Abdomen/GI: Soft, non-tender, with normal bowel sounds. No distension or tympany. No guarding or rebound. No evidence of tenderness throughout. 08:24 Skin: Warm, dry with normal turgor. Normal color with no rashes, no lesions, and no evidence of cellulitis. MS/ Extremity: Pulses equal, no cyanosis. Neurovascular intact. Full, normal range of motion. 08:24 Back: CVA tenderness, is noted on the left. 08:24 Neuro: Orientation: is normal, Motor: is normal, moves all fours. Vital Signs: 08:12 BP 131 / 100; Pulse 75; Resp 18; Temp 98.1(O); Pulse Ox 99% on R/A; Weight 83.91 kg; mh5 Height 5 ft. 7 in. (170.18 cm); Pain 6/10; 10:35 BP 130 / 92; Pulse 67; Resp 17; Pulse Ox 99% on R/A; tw2 12:20 BP 128 / 91; Pulse 57; Resp 16; Temp 98.3(O); Pulse Ox 100% on R/A; mh5 13:07 BP 124 / 86; Pulse 65; Resp 17; Pulse Ox 100% on R/A; tw2 14:14 BP 127 / 100; Pulse 70; Resp 17; Pulse Ox 99% on R/A; tw2 08:12 Body Mass Index 28.97 (83.91 kg, 170.18 cm) 5 MDM: 08:14 Patient medically screened. pm1 10:22 Physician consultation: Mayra Sandoval MD was called at 10:22, was contacted at 10:22, pm1 regarding patient's condition, would like further tests performed, CT scan. 11:24 Data reviewed: vital signs. Data interpreted: Pulse oximetry: on room air is 99 %. pm1 Interpretation: normal. Physician consultation: Mayra Sandoval MD was contacted at 11:15, regarding consult, patient's condition, CT scan, Will place stent after 2 PM due to patient eating breakfast this AM. Request hold patient in ED until putting patient into day surgery. 11/16 08:15 Order name: Basic Metabolic Panel pm1 11/16 08:15 Order name: CBC with Diff; Complete Time: 09:34 pm1 11/16 08:15 Order name: Hepatic Function; Complete Time: 09:34 pm1 11/16 08:15 Order name: Urine Microscopic Only; Complete Time: 11:13 pm1 11/16 08:16 Order name: Basic Metabolic Panel; Complete Time: 09:34 EDMS 11/16 10:35 Order name: Urine Dipstick--Ancillary (enter results); Complete Time: 10:48 ms 11/16 08:50 Order name: Renal Ultrasound-Limited; Complete Time: 10:00 EDMS 11/16 10:22 Order name: CT Stone Protocol; Complete Time: 10:42 pm1 11/16 08:15 Order name: IV Saline Lock; Complete Time: 08:42 pm1 11/16 08:15 Order name: Labs collected and sent; Complete Time: 08:42 pm1 11/16 08:15 Order name: Urine Dipstick-Ancillary (obtain specimen); Complete Time: 12:05 pm1 11/16 11:31 Order name: NPO; Complete Time: 11:32 pm1 Administered Medications: 08:40 Drug: TORadol 30 mg Route: IVP; Site: right antecubital; sg 12:05 Follow up: Response: No adverse reaction; Pain is decreased tw2 08:40 Drug: fentaNYL (PF) 50 mcg Route: IVP; Site: right antecubital; sg 11:41 Follow up: Response: No adverse reaction; Pain is decreased tw2 08:40 Drug: Zofran 4 mg Route: IVP; Site: right antecubital; sg 11:41 Follow up: Response: No adverse reaction tw2 08:42 Drug: NS 0.9% 1000 ml Route: IV; Rate: 1000 ml; Site: right antecubital; sg 11:41 Follow up: Response: No adverse reaction; IV Status: Completed infusion; IV Intake: tw2 1000ml 11:37 Drug: Cipro 400 mg Volume: 200 ml; Route: IVPB; Infused Over: 60 mins; Site: right tw2 forearm; 12:32 Follow up: Response: No adverse reaction; IV Status: Completed infusion tw2 11:41 Drug: fentaNYL (PF) 50 mcg Route: IVP; Site: right forearm; tw2 12:33 Follow up: Response: No adverse reaction; Pain is decreased tw2 13:00 Drug: NS 0.9% 1000 ml Route: IV; Rate: 100 ml/hr; Site: right antecubital; tw2 13:15 Drug: Zofran 4 mg Route: IVP; Site: right antecubital; tw2 Disposition: 11/16/18 11:29 Hospitalization ordered by Mayra Sandoval for Observation. Preliminary diagnosis is Hydronephrosis with renal and ureteral calculous obstruction. - Bed requested for DAY SURGERY OTHER. - Status is Observation. tw2 - Condition is Stable. - Problem is new. - Symptoms have improved. UTI on Admission? No Addendum: 11/17/2018 17:59 Co-signature as Attending Physician, Kamran Steele MD. g s Signatures: Dispatcher [employer] EDMS Santy Manzano RN RN sg Mike Peraza NP [employer] pm1 Anita Rodas RN RN tw2 Kamarn Steele MD MD Corrections: (The following items were deleted from the chart) 11/16 08:02 08:01 Allergies: No Known Allergies; sg sg 14:14 11:29 Hospitalization Ordered by Mayra Sandoval MD for Observation. Preliminary tw2 diagnosis is Hydronephrosis with renal and ureteral calculous obstruction. Bed requested for DAY SURGERY OTHER. Status is Observation. Condition is Stable. Problem is new. Symptoms have improved. UTI on Admission? No. pm1 16:37 08:24 The symptoms are located in the right low back, pm1 pm1 16:37 08:24 The problem was sustained Right kidney stone, pm1 pm1 16:37 08:24 Patient with onset of right flank pain 2 weeks ago and diagnosed with 6 mm pm1 ureteral stone. Patient seen multiple times in the ER for same calculous and he followed up with Dr. Sandoval on Monday. Lithotripsy performed on that day and he was without right flank pain until this AM. pm1
[2018-11-16] MEDS ORDERED: CIPROFLOXACIN 400mg IV 400 MG/200 ML BAG IV ONE (11:50)
[2018-11-16] MEDS ORDERED: LIDOCAINE 1% MPF 5 ML VIAL ONE (15:17)
[2018-11-16] MEDS ORDERED: ROCURONIUM 50 MG/5 ML VIAL IV ONE (15:17)
[2018-11-16] MEDS ORDERED: MIDAZOLAM HCL 2 MG/2 ML INJ ONE (15:17)
[2018-11-16] MEDS ORDERED: PROPOFOL 200 MG/20 ML VIAL IV ONE (15:17)
[2018-11-16] MEDS ORDERED: Mastisol Adhesive Liq ONE (15:38)
--- NOTE | 2018-11-16 15:45 | RAD REPORT ---
EXAM DESCRIPTION: RAD - Urethrocystogrphy Retrograde - 11/16/2018 3:31 pm CLINICAL HISTORY: LEFT STENT COMPARISON: No comparisons FINDINGS: Total fluoro time 49 seconds
[2018-11-16] MEDS: HYDROMORPHONE HCL 1 MG/ML INJ ONE ×2 (15:58→16:06)
[2018-11-16] MEDS ORDERED: OXYBUTYNIN CHLORIDE 5 MG TAB ONE (17:11)
[2018-11-16] MEDS ORDERED: PHENAZOPYRIDINE 100MG TAB PO ONE (17:12)
[2018-11-16] MEDS ORDERED: HYDROCODONE/APAP 10/325 TAB ONE (17:12)
[2018-11-16 17:22] VITALS: BP 105/82; TEMP 97.6; O2SAT 97
[2018-11-16] MEDS ORDERED: PROMETHAZINE 25 MG/ML VIAL ONE (17:57)
[2018-11-16] MEDS ORDERED: METOCLOPRAMIDE 10 MG/2mL INJ ONE (17:57)
--- NOTE | 2018-11-16 19:18 | CON ---
History Of Present Illness: This is a pleasant 28-year-old gentleman, who had a left-sided kidney st one shocked about 3 days ago, now comes in for intractable pain. Workup revealed a stone, it has bee n present in the upper to lower ureter, also the pelvic and it is causing some hydronephro sis and some pain. He has been consented for cystoscopy and stent placement. He knows all the risks and alternatives and wishes to proceed. Current Medications: Flomax, Tylenol No. 3, Zofran, Cipro. Past Medical History: Kidney stone. Past Surgeries: ESWL. Immunizations: Up to date. Social History: Tobacco, smokes 6 cigarettes per day for 10 years. Alcohol, drinks alcohol socially . Drug use, . Review of Systems: Otherwise negative. Physical Examination: Vital Signs: Stable. HEENT: Atraumatic and normocephalic. Neck: Supple. No JVD. Chest: Clear. Heart: Regular rate and rhythm. Abdomen: Soft, nontender. : Both testicles descended. Phallus normal. Diagnostic Data: As mentioned above and CT scan as mentioned above, a 5 mm stone in left upper urete r. DICTATION ENDS HERE. DANNY/MINA Voice ID: [id number] Report ID: [id number]
== END 2018-11-16 18:34 | disposition home or self-care (01) ==
LOC: ER 07:56 → ERHOLD 11:34 → OR 11:34 → UNDOADMOB 11:34 → OR 18:34
PROVIDERS: ATTEND Urology
PROC: 0T778DZ Dilation of Left Ureter with Intraluminal Device, Via Natural or Artificial Opening Endoscopic (ICD-10-PCS; principal; 2018-11-16 13:45)
DX: N13.2 Hydronephrosis with renal and ureteral calculous obstruction (principal); Q62.39 Other obstructive defects of renal pelvis and ureter; F17.210 Nicotine dependence, cigarettes, uncomplicated
CPT/HCPCS: 36415; 51610; 74176; 74450; 76377; 76775; 80048; 80076; 81003; 81015; 85025; 99285; J0744; J1170; J2250; J2405; J2550; J2704; J2765; J3010; J7030

== ENCOUNTER 2018-12-28 09:35 | Emergency (ER) | payer BC ==
--- NOTE | 2018-12-28 10:45 | RAD REPORT ---
EXAM DESCRIPTION: CT - Stone Protocol - 12/28/2018 10:30 am CLINICAL HISTORY: Abdominal pain. Left flank pain COMPARISON: October 2018 TECHNIQUE: Computed axial tomography of the abdomen pelvis was obtained without oral or IV contrast. Lack of IV and oral contrast limits evaluation of solid organs, bowel, and vessels. Coronal reformat manuel images were obtained and reviewed. All CT scans are performed using dose optimization technique as appropriate and may include automated exposure control or mA/KV adjustment according to patient size. FINDINGS: Tiny left renal calculi. No hydronephrosis. No right renal calculus. A ureteral calculus i s not noted. No bladder calculus. The previously described left ureteral calculus has passed. The liver, spleen, pancreas and adrenals appear grossly normal There is no evidence of diverticulitis. The appendix appears normal 1 centimeter area sclerosis within the left femur unchanged 2014 likely benign Tiny umbilical hernia IMPRESSION: Nonobstructing left renal calculi
[2018-12-28 10:53] LABS: Basophils % 0.4 % (0-1.3); Hematocrit 42.2 % (39.6-49.0); Lymphocytes % 30.7 % (15.3-44.8); MPV 7.1 fL (7.6-11.3); RBC Red Blood Cell Count 4.54 M/uL (4.33-5.43)
[2018-12-28 11:06] LABS: Potassium 4.5 mmol/L (3.5-5.1)
--- NOTE | 2018-12-28 11:23 | ER ---
Nurse's Notes [facility] Name: Justin Smith Age: 28 yrs Sex: Male : 1990 Arrival Date: 12/28/2018 Time: 09:38 Bed 8 Private MD: Diagnosis: Flank Pain;Musculoskeletal Pain Presentation: 12/28 09:56 Presenting complaint: Patient states: Left flank pain for the past 3 days. Patient aj1 reports that he has recently had surgery for kidney stones, so he is concerned that he may have a UTI or another stone. Denies urinary symptoms. Denies fever. Transition of care: patient was not received from another setting of care. Onset of symptoms was November 2018. Risk Assessment: Do you want to hurt yourself or someone else? Patient reports no desire to harm self or others. Initial Sepsis Screen: Does the patient meet any 2 criteria? No. Patient's initial sepsis screen is negative. Does the patient have a suspected source of infection? No. Patient's initial sepsis screen is negative. Care prior to arrival: None. 09:56 Method Of Arrival: Ambulatory aj1 09:56 Acuity: IFEANYI 3 aj1 Triage Assessment: 09:58 General: Appears in no apparent distress. comfortable, Behavior is calm, cooperative, aj1 appropriate for age. Pain: Complains of pain in anterior aspect of left lateral abdomen and posterior aspect of left lateral abdomen Pain currently is 2 out of 10 on a pain scale. Historical: - Allergies: 09:58 No Known Allergies; aj1 - Home Meds: 09:58 Propranolol Oral once daily [Active]; aj1 - PMHx: 09:58 Anxiety; Kidney stones; Migraine; aj1 - Immunization history:: Flu vaccine is not up to date. - Social history:: Smoking status: Patient uses tobacco products, smokes one-half pack cigarettes per day. - Ebola Screening: : Patient denies travel to an Ebola-affected area in the 21 days before illness onset. Screenin:59 Abuse screen: Denies threats or abuse. Denies injuries from another. Nutritional aj1 screening: No deficits noted. Tuberculosis screening: No symptoms or risk factors identified. 11:43 Fall Risk None identified. aj1 Assessment: 09:59 General: Appears in no apparent distress. comfortable, Behavior is calm, cooperative, aj1 appropriate for age. Pain: Complains of pain in posterior aspect of left lateral abdomen and anterior aspect of left lateral abdomen Pain does not radiate. Pain currently is 2 out of 10 on a pain scale. Neuro: Level of Consciousness is awake, alert, obeys commands, Oriented to person, place, time, situation. Cardiovascular: Patient's skin is warm and dry. Respiratory: Airway is patent Respiratory effort is even, unlabored, Respiratory pattern is regular, symmetrical. GI: No signs and/or symptoms were reported involving the gastrointestinal system. : Reports flank pain, reports recent history of kidney stones Denies burning with urination, urinary frequency, urgency. EENT: No signs and/or symptoms were reported regarding the EENT system. Derm: No signs and/or symptoms reported regarding the dermatologic system. Skin is pink, warm \T\ dry. normal. Musculoskeletal: No signs and/or symptoms reported regarding the musculoskeletal system. Circulation, motion, and sensation intact. 11:00 Reassessment: Patient appears in no apparent distress at this time. No changes from aj1 previously documented assessment. Patient and/or family updated on plan of care and expected duration. Pain level reassessed. Patient is alert, oriented x 3, equal unlabored respirations, skin warm/dry/pink. Vital Signs: 09:58 BP 125 / 93; Pulse 68; Resp 16; Temp 98.5(TE); Pulse Ox 100% on R/A; Weight 83.91 kg aj1 (R); Height 5 ft. 7 in. (170.18 cm) (R); Pain 2/10; 11:21 BP 117 / 79; Pulse 59; Resp 16; Pulse Ox 100% on R/A; aj1 09:58 Body Mass Index 28.97 (83.91 kg, 170.18 cm) aj1 ED Course: 09:38 Patient arrived in ED. mr 09:52 Rashad Hurst MD is Attending Physician. kdr 09:56 Diana Jaeger RN is Primary Nurse. aj1 09:57 Triage completed. aj1 09:58 Arm band placed on Patient placed in an exam room. aj1 09:59 Patient has correct armband on for positive identification. Bed in low position. Call aj light in reach. Side rails up X 1. 09:59 No provider procedures requiring assistance completed. aj1 10:45 Initial lab(s) drawn, by me, sent to lab. Inserted saline lock: 20 gauge in right aj1 antecubital area, using aseptic technique. Blood collected. 11:43 IV discontinued, intact, bleeding controlled, No redness/swelling at site. Pressure aj1 dressing applied. Administered Medications: No medications were administered Outcome: Discharge ordered by . kdr 11:43 Discharged to home ambulatory. aj1 :43 Condition: good 11:43 Discharge instructions given to patient, Instructed on discharge instructions, follow up and referral plans. medication usage, Demonstrated understanding of instructions, follow-up care, medications, Prescriptions given X 1. 11:43 Patient left the ED. aj1 Signatures: Diana Jaeger RN RN aj1 Rashad Hurst MD MD kdr Jennifer Gabriel mr
--- NOTE | 2018-12-28 11:23 | EDPHYS ---
Physician Documentation [facility] Name: Justin Smith Age: 28 yrs Sex: Male : 1990 Arrival Date: 12/28/2018 Time: 09:38 Bed 8 Private MD: ED Physician Rashad Hurst HPI: 12/28 11:00 This 28 yrs old Male presents to ER via Ambulatory with complaints of Flank kdr Pain. 11:00 The patient complains of pain in the right mid back. kdr 11:00 The patient presents with The patient c/o three days of left flank pain. Onset: The kdr symptoms/episode began/occurred gradually, 3 day(s) ago. The symptoms do not radiate. Associated signs and symptoms: Pertinent positives: nausea. The symptoms are described as achy, dull, vague, waxing/waning. Modifying factors: The symptoms are alleviated by nothing, the symptoms are aggravated by movement. Severity of pain: At its worst the pain was mild moderate just prior to arrival, in the emergency department the pain has improved moderately. The patient has experienced a previous episode. The patient has not recently seen a physician. The patient had a hospitalization for renal colic and possible pyleo. Historical: - Allergies: 09:58 No Known Allergies; aj1 - Home Meds: 09:58 Propranolol Oral once daily [Active]; aj1 - PMHx: 09:58 Anxiety; Kidney stones; Migraine; aj1 - Immunization history:: Flu vaccine is not up to date. - Social history:: Smoking status: Patient uses tobacco products, smokes one-half pack cigarettes per day. - Ebola Screening: : Patient denies travel to an Ebola-affected area in the 21 days before illness onset. ROS: 11:00 Constitutional: Negative for fever, chills, and weight loss, Eyes: Negative for injury, kdr pain, redness, and discharge, Neck: Negative for injury, pain, and swelling, Cardiovascular: Negative for chest pain, palpitations, and edema, Respiratory: Negative for shortness of breath, cough, wheezing, and pleuritic chest pain, Back: Negative for injury and pain, : Negative for injury, bleeding, discharge, and swelling, MS/Extremity: Negative for injury and deformity, Skin: Negative for injury, rash, and discoloration, Neuro: Negative for headache, weakness, numbness, tingling, and seizure activity. 11:00 Abdomen/GI: Positive for abdominal pain, of the anterior aspect of left lateral abdomen and left upper quadrant, Very mild. Exam: 11:00 Constitutional: This is a well developed, well nourished patient who is awake, alert, kdr and in no acute distress. Head/Face: Normocephalic, atraumatic. Eyes: Pupils equal round and reactive to light, extra-ocular motions intact. Lids and lashes normal. Conjunctiva and sclera are non-icteric and not injected. Cornea within normal limits. Periorbital areas with no swelling, redness, or edema. Neck: Trachea midline, no thyromegaly or masses palpated, and no cervical lymphadenopathy. Supple, full range of motion without nuchal rigidity, or vertebral point tenderness. No Meningismus. Chest/axilla: Normal chest wall appearance and motion. Nontender with no deformity. No lesions are appreciated. Cardiovascular: Regular rate and rhythm with a normal S1 and S2. No gallops, murmurs, or rubs. Normal PMI, no JVD. No pulse deficits. Respiratory: Lungs have equal breath sounds bilaterally, clear to auscultation and percussion. No rales, rhonchi or wheezes noted. No increased work of breathing, no retractions or nasal flaring. Back: No spinal tenderness. No costovertebral tenderness. Full range of motion. Skin: Warm, dry with normal turgor. Normal color with no rashes, no lesions, and no evidence of cellulitis. MS/ Extremity: Pulses equal, no cyanosis. Neurovascular intact. Full, normal range of motion. Neuro: Awake and alert, GCS 15, oriented to person, place, time, and situation. Cranial nerves II-XII grossly intact. Motor strength 5/5 in all extremities. Sensory grossly intact. Cerebellar exam normal. Normal gait. Psych: Awake, alert, with orientation to person, place and time. Behavior, mood, and affect are within normal limits. 11:00 Abdomen/GI: Inspection: abdomen appears normal, Bowel sounds: normal, active, Palpation: soft, mild abdominal tenderness, in the anterior aspect of left lateral abdomen and left upper quadrant, rebound tenderness, is not appreciated. Vital Signs: 09:58 BP 125 / 93; Pulse 68; Resp 16; Temp 98.5(TE); Pulse Ox 100% on R/A; Weight 83.91 kg aj1 (R); Height 5 ft. 7 in. (170.18 cm) (R); Pain 06/10; 11:21 BP 117 / 79; Pulse 59; Resp 16; Pulse Ox 100% on R/A; aj1 09:58 Body Mass Index 28.97 (83.91 kg, 170.18 cm) aj1 MDM: 11:00 Data reviewed: vital signs, nurses notes, lab test result(s), radiologic studies. kdr Counseling: I had a detailed discussion with the patient and/or guardian regarding: the historical points, exam findings, and any diagnostic results supporting the discharge/admit diagnosis, lab results, radiology results, the need for outpatient follow up. 11:22 Patient medically screened. kdr 12/28 10:23 Order name: Basic Metabolic Panel 12/28 10:23 Order name: CBC with Diff 12/28 10:23 Order name: CT Stone Protocol 12/28 10:54 Order name: Urine Dipstick--Ancillary (enter results) 12/28 11:05 Order name: CBC with Automated Diff; Complete Time: 11:20 EDMS 12/28 11:06 Order name: Basic Metabolic Panel; Complete Time: 11:20 EDID 12/28 10:23 Order name: IV Saline Lock; Complete Time: 10:45 12/28 10:23 Order name: Labs collected and sent; Complete Time: 10:45 12/28 10:23 Order name: Urine Dipstick-Ancillary (obtain specimen); Complete Time: 10:51 gs Administered Medications: No medications were administered Disposition: 12/28/18 11:22 Discharged to Home. Impression: Flank Pain, Musculoskeletal Pain. - Condition is Stable. - Discharge Instructions: Musculoskeletal Pain, Flank Pain, [id number]. - Prescriptions for Ibuprofen 800 mg Oral Tablet - take 1 tablet by ORAL route every 8 hours As needed take with food; 10 tablet. - Work release form, Medication Reconciliation Form, Thank You Letter form. - Follow up: Private Physician; When: 2 - 3 days; Reason: If symptoms return, Further diagnostic work-up, Recheck today's complaints, Continuance of care, Re-evaluation by your physician. - Problem is an acute exacerbation. - Symptoms have improved. Signatures: Dispatcher [employer] EDDiana Melara RN RN aj1 Rashad Hurst MD MD kdr Starr, Gregory, MD MD gs Corrections: (The following items were deleted from the chart) 11:43 11:22 12/28/2018 11:22 Discharged to Home. Impression: Flank Pain; Musculoskeletal aj1 Pain. Condition is Stable. Forms are Medication Reconciliation Form, Thank You Letter, Antibiotic Education, Prescription Opioid Use. Follow up: Private Physician; When: 2 - 3 days; Reason: If symptoms return, Further diagnostic work-up, Recheck today's complaints, Continuance of care, Re-evaluation by your physician. Problem is an acute exacerbation. Symptoms have improved. kdr
[2018-12-28 11:53] VITALS: TEMP 98.5; O2SAT 100
[2018-12-28 12:02] VITALS: BP 117/79
[2018-12-28 12:24] LABS: Urine Blood NEGATIVE (NEG); Urine Glucose NEGATIVE (NEG); Urine Protein NEGATIVE (NEG); Urine Specific Gravity 1.025 (1.005-1.030)
== END 2018-12-28 11:43 | disposition home or self-care (01) ==
LOC: ER 09:35
DX: R10.9 Unspecified abdominal pain (principal); M79.18 Myalgia, other site; F17.210 Nicotine dependence, cigarettes, uncomplicated; Z98.890 Other specified postprocedural states
CPT/HCPCS: 36415; 74176; 76377; 80048; 81003; 85025; 99283

== ENCOUNTER 2020-10-03 15:17 | Emergency (ER) | payer BC, SELFPAY ==
[2020-10-03 16:39] LABS: Urine Blood 3+ (Negative); Urine Glucose Negative (Negative); Urine Protein Trace (Negative); Urine Specific Gravity >=1.030 (1.005-1.030); Urine pH 5.5 (5.0-7.0)
--- NOTE | 2020-10-03 17:40 | RAD REPORT ---
EXAM DESCRIPTION: CT - Stone Protocol - 10/03/2020 5:19 pm CLINICAL HISTORY: Flank pain. KIDNEY STONES COMPARISON: Stone Protocol dated 12/28/2018 TECHNIQUE: Axial images were obtained without oral or IV contrast. Lack of contrast limits solid org an and vascular assessment. The [id number] spans the entirety of the system partially obscuring uppermost abdomen and lung bases. Coronal reformatted images were obtained and reviewed. All CT scans are performed using dose optimization technique as appropriate and may include automated exposure control or mA/KV adjustment according to patient size. FINDINGS: The lower lung wilkerson are clear. Imaged portions of the liver and spleen show no suspicious findings on non-contrast imaging. The panc reas and adrenal glands are normal. No pathologic lymphadenopathy in the abdomen or pelvis. Mild left hydronephrosis proximal left hydroureter is seen. There is 3 mm calculus present in the pro ximal left ureter. Additional small 3 mm stone is present in the left kidney. No bowel obstruction, free air, free fluid or abscess. Normal appendix noted. No significant bony abnormality. IMPRESSION: 3 mm stone is present in the proximal left ureter resulting in mild left hydronephrosis.
--- NOTE | 2020-10-03 18:07 | ER ---
Nurse's Notes [facility] Name: Justin Smith Age: 30 yrs Sex: Male : 1990 Arrival Date: 10/03/2020 Time: 15:22 Bed 28 Private MD: Diagnosis: Hydronephrosis with renal and ureteral calculous obstruction-3 mm left proximal Presentation: 10/03 15:25 Chief complaint: Patient states: left flank pain that began today. Pt also reports aa5 "dark urine". Pt states "I know it's a kidney stone". Coronavirus screen: At this time, the client does not indicate any symptoms associated with coronavirus-19. Ebola Screen: Patient negative for fever greater than or equal to 101.5 degrees Fahrenheit, and additional compatible Ebola Virus Disease symptoms. Initial Sepsis Screen: Does the patient meet any 2 criteria? No. Patient's initial sepsis screen is negative. Does the patient have a suspected source of infection? No. Patient's initial sepsis screen is negative. Risk Assessment: Do you want to hurt yourself or someone else? Patient reports no desire to harm self or others. Onset of symptoms was October 03, 2020. 15:25 Method Of Arrival: Ambulatory aa5 15:25 Acuity: IFEANYI 3 aa5 Triage Assessment: 16:48 General: Appears. zb Historical: - Allergies: 15:26 No Known Allergies; aa5 - PMHx: 15:26 Anxiety; Kidney stones; Migraine; aa5 - PSHx: 15:26 Lithotripsy; aa5 - Immunization history:: Adult Immunizations unknown. - Social history:: Smoking status: Patient denies any tobacco usage or history of. - Family history:: not pertinent. Screenin:47 Abuse screen: Denies threats or abuse. Denies injuries from another. Nutritional zb screening: No deficits noted. Tuberculosis screening: No symptoms or risk factors identified. Fall Risk None identified. Assessment: 16:48 General: Appears in no apparent distress. uncomfortable, Behavior is calm, cooperative, zb appropriate for age. Pain: Complains of pain in left mid back and left low back Pain radiates to groin and left femoral area Pain currently is 3 out of 10 on a pain scale. Quality of pain is described as throbbing. Neuro: Level of Consciousness is awake, alert, obeys commands, Oriented to person, place, time, situation. Cardiovascular: Patient's skin is warm and dry. Respiratory: Airway is patent Respiratory effort is even, unlabored, Respiratory pattern is regular, symmetrical. GI: Abdomen is flat, Bowel sounds present X 4 quads. Abd is soft and non tender X 4 quads. Derm: Skin is intact, is healthy with good turgor, Skin is dry. Musculoskeletal: Circulation, motion, and sensation intact. Range of motion: intact in all extremities. 17:16 Reassessment: Patient appears in no apparent distress at this time. Patient and/or zb family updated on plan of care and expected duration. Pain level reassessed. Patient is alert, oriented x 3, equal unlabored respirations, skin warm/dry/pink. pt declines IV at this time. states pain is 3/10. 18:00 Reassessment: Patient appears in no apparent distress at this time. Patient and/or zb family updated on plan of care and expected duration. Pain level reassessed. Patient is alert, oriented x 3, equal unlabored respirations, skin warm/dry/pink. pt c/o pain notified ecp. medication ordered. 18:15 Reassessment: notified ECP that patient wanted to switch pain medication to tramadol. zb 18:33 Reassessment: patient ambulated out. pain decreased. no issues at this time. Vital Signs: 15:26 BP 113 / 91; Pulse 83; Resp 18 S; Temp 97.5(TE); Pulse Ox 98% on R/A; Weight 85.73 kg aa (R); Height 5 ft. 7 in. (170.18 cm) (R); Pain 3/10; 16:36 BP 124 / 99; Pulse 79; Resp 16; Pulse Ox 100% on R/A; zb 18:15 BP 139 / 89; Pulse 84; Resp 16; Pulse Ox 100% on R/A; zb 15:26 Body Mass Index 29.60 (85.73 kg, 170.18 cm) 5 ED Course: 15:22 Patient arrived in ED. mr 15:25 Arm band placed on. aa5 15:26 Triage completed. aa 15:50 Elia Martinez MD is Attending Physician. [facility] 16:00 Brown, Fe, RN is Primary Nurse. zb 16:47 Patient has correct armband on for positive identification. Call light in reach. Side zb rails up X 1. Pulse ox on. NIBP on. Door closed. Noise minimized. 17:19 CT Stone Protocol In Process Unspecified. EDMS 18:04 Jorge Oseguera MD is Referral Physician. [facility] 18:33 No provider procedures requiring assistance completed. Patient did not have IV access zb during this emergency room visit. Administered Medications: 18:10 Drug: TORadol (ketorolac) 60 mg Route: IM; Site: right gluteus; zb 18:13 Drug: Flomax (tamsulosin) 0.4 mg Route: PO; zb 18:13 Drug: Ondansetron 4 mg Route: PO; zb Outcome: 18:06 Discharge ordered by . toño 18:33 Discharged to home ambulatory. zb 18:33 Condition: stable 18:33 Discharge instructions given to patient, family, Instructed on discharge instructions, follow up and referral plans. medication usage, Demonstrated understanding of instructions, follow-up care, medications, Prescriptions given X 4. 18:34 Patient left the ED. zb Signatures: Dispatcher [employer] EDOK Elia Martinez MD MD cha Rivera, Mary mr Calderon, Audri, RN RN Fe Gipson RN RN zb
--- NOTE | 2020-10-03 18:07 | EDPHYS ---
Physician Documentation [facility] Name: Justin Smith Age: 30 yrs Sex: Male : 1990 Arrival Date: 10/03/2020 Time: 15:22 Bed 28 Private MD: VENKAT Physician Elia Martinez HPI: 10/03 16:13 This 30 yrs old Male presents to ER via Ambulatory with complaints of toño Possible Kidney Stone. 16:13 The patient complains of pain in the left low back and left mid back. Onset: The toño symptoms/episode began/occurred 1 day(s) ago. Modifying factors: The symptoms are alleviated by nothing. the symptoms are aggravated by nothing. Associated signs and symptoms: The patient has no apparent associated signs or symptoms. Severity of pain: At its worst the pain was mild in the emergency department the pain is unchanged. The patient has not experienced similar symptoms in the past. Historical: - Allergies: 15:26 No Known Allergies; aa5 - PMHx: 15:26 Anxiety; Kidney stones; Migraine; aa5 - PSHx: 15:26 Lithotripsy; aa5 - Immunization history:: Adult Immunizations unknown. - Social history:: Smoking status: Patient denies any tobacco usage or history of. - Family history:: not pertinent. ROS: 16:13 Constitutional: Negative for fever, chills, and weight loss, Eyes: Negative for injury, toño pain, redness, and discharge, ENT: Negative for injury, pain, and discharge, Neck: Negative for injury, pain, and swelling, Cardiovascular: Negative for chest pain, palpitations, and edema, Respiratory: Negative for shortness of breath, cough, wheezing, and pleuritic chest pain, Abdomen/GI: Negative for abdominal pain, nausea, vomiting, diarrhea, and constipation, : Negative for injury, bleeding, discharge, and swelling, MS/Extremity: Negative for injury and deformity, Skin: Negative for injury, rash, and discoloration, Neuro: Negative for headache, weakness, numbness, tingling, and seizure, Psych: Negative for depression, anxiety, suicide ideation, homicidal ideation, and hallucinations, Allergy/Immunology: Negative for hives, rash, and allergies, Endocrine: Negative for neck swelling, polydipsia, polyuria, polyphagia, and marked weight changes, Hematologic/Lymphatic: Negative for swollen nodes, abnormal bleeding, and unusual bruising. 16:13 Back: Positive for flank pain, on the left. Exam: 16:13 Constitutional: This is a well developed, well nourished patient who is awake, alert, toño and in no acute distress. Head/Face: Normocephalic, atraumatic. Eyes: Pupils equal round and reactive to light, extra-ocular motions intact. Lids and lashes normal. Conjunctiva and sclera are non-icteric and not injected. Cornea within normal limits. Periorbital areas with no swelling, redness, or edema. ENT: Nares patent. No nasal discharge, no septal abnormalities noted. Tympanic membranes are normal and external auditory canals are clear. Oropharynx with no redness, swelling, or masses, exudates, or evidence of obstruction, uvula midline. Mucous membranes moist. Neck: Trachea midline, no thyromegaly or masses palpated, and no cervical lymphadenopathy. Supple, full range of motion without nuchal rigidity, or vertebral point tenderness. No Meningismus. Chest/axilla: Normal chest wall appearance and motion. Nontender with no deformity. No lesions are appreciated. Cardiovascular: Regular rate and rhythm with a normal S1 and S2. No gallops, murmurs, or rubs. Normal PMI, no JVD. No pulse deficits. Respiratory: Lungs have equal breath sounds bilaterally, clear to auscultation and percussion. No rales, rhonchi or wheezes noted. No increased work of breathing, no retractions or nasal flaring. Abdomen/GI: Soft, non-tender, with normal bowel sounds. No distension or tympany. No guarding or rebound. No evidence of tenderness throughout. Back: No spinal tenderness. No costovertebral tenderness. Full range of motion. Male : Normal genitalia with no discharge or lesions. Skin: Warm, dry with normal turgor. Normal color with no rashes, no lesions, and no evidence of cellulitis. MS/ Extremity: Pulses equal, no cyanosis. Neurovascular intact. Full, normal range of motion. Neuro: Awake and alert, GCS 15, oriented to person, place, time, and situation. Cranial nerves II-XII grossly intact. Motor strength 5/5 in all extremities. Sensory grossly intact. Cerebellar exam normal. Normal gait. Psych: Awake, alert, with orientation to person, place and time. Behavior, mood, and affect are within normal limits. Vital Signs: 15:26 BP 113 / 91; Pulse 83; Resp 18 S; Temp 97.5(TE); Pulse Ox 98% on R/A; Weight 85.73 kg aa5 (R); Height 5 ft. 7 in. (170.18 cm) (R); Pain 3/10; 16:36 BP 124 / 99; Pulse 79; Resp 16; Pulse Ox 100% on R/A; zb 18:15 BP 139 / 89; Pulse 84; Resp 16; Pulse Ox 100% on R/A; zb 15:26 Body Mass Index 29.60 (85.73 kg, 170.18 cm) aa5 MDM: 15:50 Patient medically screened. toño 16:15 Differential diagnosis: nephrolithiasis, pyelonephritis, UTI, diverticulitis. Data toño reviewed: vital signs, nurses notes, lab test result(s), urinalysis, radiologic studies, CT scan. Data interpreted: potline monitor: not applicable for this patient encounter. rate is 83 beats/min, rhythm is regular, Pulse oximetry: on room air is 98 %. Test interpretation: by ED physician or midlevel provider: plain radiologic studies. Counseling: I had a detailed discussion with the patient and/or guardian regarding: the historical points, exam findings, and any diagnostic results supporting the discharge/admit diagnosis, lab results, radiology results, the need for outpatient follow up, for definitive care, a family practitioner, a urologist. 10/03 16:39 Order name: Urine Dipstick-Ancillary; Complete Time: 17:16 EDOK 10/03 15:59 Order name: CT Stone Protocol; Complete Time: 17:53 [facility] 10/03 15:59 Order name: Urine Dipstick-Ancillary (obtain specimen); Complete Time: 16:47 toño Administered Medications: 18:10 Drug: TORadol (ketorolac) 60 mg Route: IM; Site: right gluteus; zb 18:13 Drug: Flomax (tamsulosin) 0.4 mg Route: PO; zb 18:13 Drug: Ondansetron 4 mg Route: PO; zb Disposition: 10/03/20 18:06 Discharged to Home. Impression: Hydronephrosis with renal and ureteral calculous obstruction - 3 mm left proximal. - Condition is Stable. - Discharge Instructions: Kidney Stones, Kidney Stones, [id number], Hydronephrosis. - Prescriptions for Zofran 4 mg Oral Tablet - take 1 tablet by ORAL route every 12 hours As needed; 20 tablet. Flomax 0.4 mg Oral Capsule, Sust. Release 24 hr - take 1 capsule by ORAL route once daily 1/2 hour following the same meal each day; 30 capsule. Cipro 500 mg Oral Tablet - take 1 tablet by ORAL route every 12 hours for 7 days; 14 tablet. Tramadol 50 mg Oral Tablet - take 1 tablet by ORAL route every 6 hours as needed; 26 tablet. - Medication Reconciliation Form, Thank You Letter, Antibiotic Education, Prescription Opioid Use form. - Follow up: Private Physician; When: 2 - 3 days; Reason: Recheck today's complaints, Continuance of care, Re-evaluation by your physician. Follow up: Jorge Oseguera MD; When: 2 - 3 days; Reason: Recheck today's complaints, Continuance of care, Re-evaluation by your physician. - Problem is new. - Symptoms have improved. Signatures: Dispatcher [employer] EDOK Elia Martinez MD MD cha Calderon, Audri RN RN aa5 Fe Kim RN RN zb Corrections: (The following items were deleted from the chart) 18:34 18:06 10/03/2020 18:06 Discharged to Home. Impression: Hydronephrosis with renal and zb ureteral calculous obstruction - 3 mm left proximal. Condition is Stable. Forms are Medication Reconciliation Form, Thank You Letter, Antibiotic Education, Prescription Opioid Use. Follow up: Private Physician; When: 2 - 3 days; Reason: Recheck today's complaints, Continuance of care, Re-evaluation by your physician. Follow up: Jorge Oseguera; When: 2 - 3 days; Reason: Recheck today's complaints, Continuance of care, Re-evaluation by your physician. Problem is new. Symptoms have improved. toño
[2020-10-03] MEDS ORDERED: ONDANSETRON 4 MG (ODT) TAB ONE (18:26)
[2020-10-03] MEDS ORDERED: KETOROLAC 30 MG/ML INJ ONE (18:26)
[2020-10-03] MEDS ORDERED: TAMSULOSIN 0.4 MG SR CAP ONE (18:26)
[2020-10-03 18:51] VITALS: TEMP 97.5
[2020-10-03 18:53] VITALS: O2SAT 100
[2020-10-03 18:54] VITALS: BP 139/89
== END 2020-10-03 18:34 | disposition home or self-care (01) ==
LOC: ER 15:17
DX: N13.2 Hydronephrosis with renal and ureteral calculous obstruction (principal)
CPT/HCPCS: 74176; 76377; 81003; 96372; 99284

== ENCOUNTER 2021-01-05 18:34 | Emergency (ER) | payer SELFPAY ==
[2021-01-05 19:26] LABS: Urine Blood 2+ (Negative); Urine Glucose Negative (Negative); Urine Protein 1+ (Negative); Urine Specific Gravity 1.025 (1.005-1.030); Urine pH 6.5 (5.0-7.0)
--- NOTE | 2021-01-05 22:11 | ER ---
Nurse's Notes [facility] Name: Justin Smith Age: 30 yrs Sex: Male : 1990 Arrival Date: 01/05/2021 Time: 18:41 Bed 6 Private MD: Diagnosis: UTI/ Urinary tract infection, site not specified;Nonspecific urethritis Presentation: 01/05 19:06 Chief complaint: Patient states: Frequent urination and possible UTI for 2 days. Had ll1 UTI last month, feels the same. Coronavirus screen: Client denies travel out of the [place] in the last 14 days. At this time, the client does not indicate any symptoms associated with coronavirus-19. Ebola Screen: Patient denies travel to an Ebola-affected area in the 21 days before illness onset. Initial Sepsis Screen: Does the patient meet any 2 criteria? No. Patient's initial sepsis screen is negative. Does the patient have a suspected source of infection? Yes: Dysuria/Frequency/Urgency/UTI. Risk Assessment: Do you want to hurt yourself or someone else? Patient reports no desire to harm self or others. Onset of symptoms was January 04, 2021. 19:06 Method Of Arrival: Ambulatory ll1 19:06 Acuity: IFEANYI 4 ll1 Historical: - Allergies: 19:08 No Known Drug Allergies; ll1 - PMHx: 19:08 Anxiety; Kidney stones; Migraine; ll1 - PSHx: 19:08 Lithotripsy; kidney stent; ll1 - Immunization history:: Flu vaccine is not up to date. - Social history:: Smoking status: Reported history of juuling and/or vaping. - Family history:: not pertinent. - Hospitalizations: : No recent hospitalization is reported. Screenin:44 Abuse screen: Denies threats or abuse. Nutritional screening: No deficits noted. ea Tuberculosis screening: No symptoms or risk factors identified. Fall Risk None identified. Assessment: 21:44 General: Appears uncomfortable, Behavior is appropriate for age. Pain: Denies pain. ea Neuro: Level of Consciousness is awake, alert, obeys commands, Oriented to person, place, time. Respiratory: Airway is patent Respiratory effort is even, unlabored, Respiratory pattern is regular, symmetrical. Derm: Skin is pink, warm \T\ dry. Vital Signs: 19:06 BP 125 / 93; Pulse 80; Resp 16; Temp 98.1; Pulse Ox 99% ; Weight 83.91 kg; Height 5 ft. ll1 7 in. (170.18 cm); Pain 2/10; 22:20 BP 122 / 88; Pulse 74; Resp 18; Temp 98.4; Pulse Ox 99% on R/A; Pain 2/10; wg 19:06 Body Mass Index 28.97 (83.91 kg, 170.18 cm) ll1 Arnie Coma Score: 22:20 Eye Response: spontaneous(4). Verbal Response: oriented(5). Motor Response: obeys wg commands(6). Total: 15. ED Course: 18:41 Patient arrived in ED. am2 19:06 Arm band placed on. ll1 19:08 Triage completed. ll1 21:43 Gisell Ramirez, RN is Primary Nurse. ea 21:44 Patient has correct armband on for positive identification. Bed in low position. Call ea light in reach. 21:57 Reed Ahn MD is Attending Physician. rn Administered Medications: 22:15 Drug: Cipro (ciprofloxacin) 500 mg Route: PO; wg Outcome: 22:10 Discharge ordered by . rn 22:19 Discharged to home ambulatory. wg 22:19 Condition: stable 22:19 Discharge instructions given to patient, Instructed on discharge instructions, follow up and referral plans. Demonstrated understanding of instructions, follow-up care, medications, Prescriptions given X 1. 22:21 Patient left the ED. wg Signatures: Reed Ahn MD MD rn Moreno, Amanda am2 Gisell Ramirez RN RN ea Lewis, Lynsay, RN RN [facility] Dmitri Del Rio RN
--- NOTE | 2021-01-05 22:11 | EDPHYS ---
Physician Documentation [facility] Name: Justin Smith Age: 30 yrs Sex: Male : 1990 Arrival Date: 01/05/2021 Time: 18:41 Bed 6 Private MD: ED Physician Reed Ahn HPI: 01/05 22:07 This 30 yrs old Male presents to ER via Ambulatory with complaints of Dysuria.rn 22:07 The patient presents with urinary symptoms, dysuria, urinary frequency. Onset: The rn symptoms/episode began/occurred 2 day(s) ago. Modifying factors: The symptoms are alleviated by nothing, the symptoms are aggravated by urinating. Associated signs and symptoms: Pertinent positives: dysuria, Pertinent negatives: abdominal pain, fever, hematuria. Severity of symptoms: At their worst the symptoms were mild, in the emergency department the symptoms are unchanged. The patient has experienced similar episodes in the past. The patient has not recently seen a physician. Patient reports dysuria and increased urinary frequency for 2 days. Denies trauma. States this feels nothing like previous kidney stones. No abdominal or flank pain. No fever or chills. Reports single partner and does not believe this is a sexually transmitted disease. No penile discharge. Reports several urine infections in the past and this feels identical.. Historical: - Allergies: 19:08 No Known Drug Allergies; ll1 - PMHx: 19:08 Anxiety; Kidney stones; Migraine; ll1 - PSHx: 19:08 Lithotripsy; kidney stent; ll1 - Immunization history:: Flu vaccine is not up to date. - Social history:: Smoking status: Reported history of juuling and/or vaping. - Family history:: not pertinent. - Hospitalizations: : No recent hospitalization is reported. ROS: 22:07 Constitutional: Negative for fever, chills, and weight loss, Cardiovascular: Negative rn for chest pain, palpitations, and edema, Respiratory: Negative for shortness of breath, cough, wheezing, and pleuritic chest pain, Abdomen/GI: Negative for abdominal pain, nausea, vomiting, diarrhea, and constipation, Back: Negative for injury and pain, : Positive for dysuria and increased frequency MS/Extremity: Negative for injury and deformity, Skin: Negative for injury, rash, and discoloration, Neuro: Negative for headache, weakness, numbness, tingling, and seizure. Exam: 22:07 Constitutional: This is a well developed, well nourished patient who is awake, alert, rn and in no acute distress. Head/Face: Normocephalic, atraumatic. Eyes: Conjunctiva and sclera are non-icteric and not injected. Cornea within normal limits. Periorbital areas with no swelling, redness, or edema. Cardiovascular: Regular rate and rhythm. No pulse deficits. Respiratory: No increased work of breathing, no retractions or nasal flaring. Abdomen/GI: Soft, nontender Skin: Warm, dry with normal turgor. Normal color with no rashes, no lesions, and no evidence of cellulitis. Neuro: Awake and alert, GCS 15 Vital Signs: 19:06 BP 125 / 93; Pulse 80; Resp 16; Temp 98.1; Pulse Ox 99% ; Weight 83.91 kg; Height 5 ft. ll1 7 in. (170.18 cm); Pain 2/10; 22:20 BP 122 / 88; Pulse 74; Resp 18; Temp 98.4; Pulse Ox 99% on R/A; Pain 2/10; wg 19:06 Body Mass Index 28.97 (83.91 kg, 170.18 cm) ll1 Morehouse Coma Score: 22:20 Eye Response: spontaneous(4). Verbal Response: oriented(5). Motor Response: obeys wg commands(6). Total: 15. MDM: 21:57 Patient medically screened. rn 22:07 Differential diagnosis: UTI, urethritis. Data reviewed: vital signs, nurses notes, labeler test result(s), urinalysis, and as a result, I will discharge patient. Counseling: I had a detailed discussion with the patient and/or guardian regarding: the historical points, exam findings, and any diagnostic results supporting the discharge/admit diagnosis, lab results, the need for outpatient follow up, to return to the emergency department if symptoms worsen or persist or if there are any questions or concerns that arise at home. Special discussion: I discussed with the patient/guardian in detail that at this point there is no indication for admission to the hospital. It is understood, however, that if the symptoms persist or worsen the patient needs to return immediately for re-evaluation. 01/05 19:25 Order name: Urine Dipstick-Ancillary; Complete Time: 21:58 EDMS Administered Medications: 22:15 Drug: Cipro (ciprofloxacin) 500 mg Route: PO; wg Disposition Summary: 01/05/21 22:10 Discharge Ordered Location: Home rn Problem: new rn Symptoms: are unchanged rn Condition: Stable rn Diagnosis - UTI/ Urinary tract infection, site not specified rn - Nonspecific urethritis rn Followup: rn - With: Private Physician - When: As needed - Reason: Recheck today's complaints, Re-evaluation by your physician Discharge Instructions: - Discharge Summary Sheet rn - Urethritis, Adult rn - Urinary Tract Infection, Adult rn Forms: - Medication Reconciliation Form rn - Thank You Letter rn - Antibiotic infection control rn - Prescription Opioid Use rn Prescriptions: - Cipro 500 mg Oral Tablet - take 1 tablet by ORAL route every 12 hours for 7 days; 14 tablet; Refills: 0, rn Product Selection Permitted Signatures: Dispatcher [employer] EDMS Reed Ahn MD MD rn Lewis, Lynsay, RN RN 1 Dmitri Del Rio RN wg
[2021-01-05] MEDS ORDERED: CIPROFLOXACIN HCL 500 MG TAB ONE (22:37)
[2021-01-05 22:40] VITALS: O2SAT 99
[2021-01-05 22:42] VITALS: BP 122/88; TEMP 98.4
== END 2021-01-05 22:21 | disposition home or self-care (01) ==
LOC: ER 18:34
DX: N34.2 Other urethritis (principal); Z87.442 Personal history of urinary calculi
CPT/HCPCS: 81003; 99283

== ENCOUNTER 2021-01-12 09:18 | Emergency (ER) | payer SELFPAY ==
--- NOTE | 2021-01-12 10:11 | RAD REPORT ---
EXAM DESCRIPTION: CT - Stone Protocol - 01/12/2021 9:53 am CLINICAL HISTORY: Flank pain. Abd pain;Fever;Flank pain COMPARISON: Stone Protocol dated 10/03/2020 TECHNIQUE: Axial images were obtained without oral or IV contrast. Lack of contrast limits solid org an and vascular assessment. The [id number] spans the entirety of the system partially obscuring uppermost abdomen and lung bases. Coronal reformatted images were obtained and reviewed. All CT scans are performed using dose optimization technique as appropriate and may include automated exposure control or mA/KV adjustment according to patient size. FINDINGS: The lower lung wilkerson are clear. Imaged portions of the liver and spleen show no suspicious findings on non-contrast imaging. The panc reas and adrenal glands are normal. No pathologic lymphadenopathy in the abdomen or pelvis. No urinary tract stones or obstructive uropathy. No bowel obstruction, free air, free fluid or abscess. The appendix is not identified as a discrete s tructure, however, no secondary findings of appendicitis are identified. Small fat containing umbilic al hernia. No significant bony abnormality. IMPRESSION: No urinary tract stones or obstructive uropathy.
[2021-01-12] MEDS ORDERED: CEFTRIAXONE/SWI 1gm 1 GM/10 ML SYR ONE (10:42)
[2021-01-12] MEDS ORDERED: NA CHLORIDE 0.9% 1,000 ML ONE (10:42)
[2021-01-12 11:01] LABS: Absolute Lymphocytes (CBC) 0.6 K/uL (0.7-4.9); Basophils % 0.3 % (0-1.3); Hematocrit 40.7 % (39.6-49.0); Lymphocytes % 10.8 % (15.3-44.8); MPV 7.3 fL (7.6-11.3); RBC Red Blood Cell Count 4.49 M/uL (4.33-5.43)
[2021-01-12 11:21] LABS: Albumin 4.1 g/dL (3.4-5.0); Bilirubin Direct 0.2 mg/dL (0-0.2); Bilirubin Total 0.6 mg/dL (0.2-1.0); Potassium 3.8 mmol/L (3.5-5.1); Protein, Total 7.4 g/dL (6.4-8.2)
[2021-01-12 11:47] LABS: Urine Blood Trace-lysed (Negative); Urine Glucose Negative (Negative); Urine Protein Trace (Negative); Urine Specific Gravity >=1.030 (1.005-1.030); Urine pH 5.5 (5.0-7.0)
--- NOTE | 2021-01-12 11:55 | EDPHYS ---
Physician Documentation [facility] Name: Justin Smith Age: 30 yrs Sex: Male : 1990 Arrival Date: 01/12/2021 Time: 09:22 Bed 30 Private MD: ED Physician Elia Martinez HPI: 01/12 11:52 This 30 yrs old Male presents to ER via Ambulatory with complaints of Fever. toño 11:52 The patient reports fever, that was measured at 100.5 degrees Fahrenheit. Onset: The toño symptoms/episode began/occurred 3 day(s) ago. Modifying factors: there are no obvious modifying factors. Associated signs and symptoms: Pertinent positives: arthralgias, cough. Severity of symptoms: At their worst the symptoms were mild in the emergency department the symptoms are unchanged. The patient has not experienced similar symptoms in the past. Historical: - Allergies: 09:29 No Known Allergies; aa5 - PMHx: 09:29 Anxiety; Kidney stones; Migraine; aa5 - PSHx: 09:29 kidney stent; Lithotripsy; aa5 - Immunization history:: Client reports having NOT received the Covid vaccine. Flu vaccine is not up to date. - Social history:: Smoking status: Reported history of juuling and/or vaping. - Family history:: not pertinent. ROS: 11:52 Constitutional: Negative for fever, chills, and weight loss, Eyes: Negative for injury, toño pain, redness, and discharge, ENT: Negative for injury, pain, and discharge, Neck: Negative for injury, pain, and swelling, Cardiovascular: Negative for chest pain, palpitations, and edema, Respiratory: Negative for shortness of breath, cough, wheezing, and pleuritic chest pain, Abdomen/GI: Negative for abdominal pain, nausea, vomiting, diarrhea, and constipation, Back: Negative for injury and pain, : Negative for injury, bleeding, discharge, and swelling, MS/Extremity: Negative for injury and deformity, Skin: Negative for injury, rash, and discoloration, Neuro: Negative for headache, weakness, numbness, tingling, and seizure, Psych: Negative for depression, anxiety, suicide ideation, homicidal ideation, and hallucinations, Allergy/Immunology: Negative for hives, rash, and allergies, Endocrine: Negative for neck swelling, polydipsia, polyuria, polyphagia, and marked weight changes, Hematologic/Lymphatic: Negative for swollen nodes, abnormal bleeding, and unusual bruising. Exam: 11:52 Constitutional: This is a well developed, well nourished patient who is awake, alert, toño and in no acute distress. Head/Face: Normocephalic, atraumatic. Eyes: Pupils equal round and reactive to light, extra-ocular motions intact. Lids and lashes normal. Conjunctiva and sclera are non-icteric and not injected. Cornea within normal limits. Periorbital areas with no swelling, redness, or edema. ENT: Nares patent. No nasal discharge, no septal abnormalities noted. Tympanic membranes are normal and external auditory canals are clear. Oropharynx with no redness, swelling, or masses, exudates, or evidence of obstruction, uvula midline. Mucous membranes moist. Neck: Trachea midline, no thyromegaly or masses palpated, and no cervical lymphadenopathy. Supple, full range of motion without nuchal rigidity, or vertebral point tenderness. No Meningismus. Chest/axilla: Normal chest wall appearance and motion. Nontender with no deformity. No lesions are appreciated. Cardiovascular: Regular rate and rhythm with a normal S1 and S2. No gallops, murmurs, or rubs. Normal PMI, no JVD. No pulse deficits. Respiratory: Lungs have equal breath sounds bilaterally, clear to auscultation and percussion. No rales, rhonchi or wheezes noted. No increased work of breathing, no retractions or nasal flaring. Abdomen/GI: Soft, non-tender, with normal bowel sounds. No distension or tympany. No guarding or rebound. No evidence of tenderness throughout. Back: No spinal tenderness. No costovertebral tenderness. Full range of motion. Male : Normal genitalia with no discharge or lesions. Skin: Warm, dry with normal turgor. Normal color with no rashes, no lesions, and no evidence of cellulitis. MS/ Extremity: Pulses equal, no cyanosis. Neurovascular intact. Full, normal range of motion. Neuro: Awake and alert, GCS 15, oriented to person, place, time, and situation. Cranial nerves II-XII grossly intact. Motor strength 5/5 in all extremities. Sensory grossly intact. Cerebellar exam normal. Normal gait. Psych: Awake, alert, with orientation to person, place and time. Behavior, mood, and affect are within normal limits. Vital Signs: 09:29 BP 113 / 79; Pulse 85; Resp 18 S; Temp 99.0(O); Pulse Ox 99% on R/A; Weight 83.91 kg aa5 (R); Height 5 ft. 7 in. (170.18 cm) (R); 13:17 BP 127 / 82; Pulse 86; Resp 18; Pulse Ox 100% ; ld1 09:29 Body Mass Index 28.97 (83.91 kg, 170.18 cm) aa5 MDM: 09:32 Patient medically screened. [facility] 01/12 09:34 Order name: Basic Metabolic Panel; Complete Time: 11:50 [facility] 01/12 09:34 Order name: CBC with Diff; Complete Time: 11:50 [facility] 01/12 09:34 Order name: Hepatic Function; Complete Time: 11:50 [facility] 01/12 09:34 Order name: Lipase; Complete Time: 11:50 [facility] 01/12 09:34 Order name: Urine Culture [facility] 01/12 09:34 Order name: Blood Culture Adult (2) [facility] 01/12 09:34 Order name: CT Stone Protocol; Complete Time: 11:02 [facility] 01/12 11:47 Order name: Urine Dipstick-Ancillary; Complete Time: 11:50 [facility] 01/12 11:52 Order name: SARS-COV-2 RT PCR [facility] 01/12 09:34 Order name: IV Saline Lock; Complete Time: 10:30 [facility] 01/12 09:34 Order name: Labs collected and sent; Complete Time: 10:30 [facility] 01/12 09:34 Order name: Urine Dipstick-Ancillary (obtain specimen); Complete Time: 12:03 [facility] Administered Medications: 10:15 Drug: NS 0.9% 1000 ml Route: IV; Rate: 1 bolus; Site: right antecubital; bp 10:15 Drug: Rocephin (cefTRIAXone) 1 grams Route: IV; Rate: per protocol; Site: right bp antecubital; 12:00 Drug: Zithromax (azithromycin) 500 mg Route: PO; bp 12:37 Follow up: Response: No adverse reaction ld1 12:00 Drug: Pepcid (famotidine) 40 mg Route: PO; bp 12:37 Follow up: Response: No adverse reaction ld1 12:00 Drug: Aspirin Chewable Tablet 162 mg Route: PO; bp 12:37 Follow up: Response: No adverse reaction ld1 12:37 Drug: REGEN-COV Dose Pack 120 mg/mL-120 mg/mL (EUA) 1 vials Route: IV; Rate: per ld1 protocol; Site: right antecubital; Disposition Summary: 01/12/21 11:55 Discharge Ordered Location: Home toño Problem: new toño Symptoms: have improved toño Condition: Stable toño Diagnosis - Coronavirus infection, unspecified otño - Fever, unspecified toño Followup: toño - With: Private Physician - When: 2 - 3 days - Reason: Recheck today's complaints, Continuance of care, Re-evaluation by your physician Followup: toño - With: Jon Shepherd MD - When: 2 - 3 days - Reason: Recheck today's complaints, Re-evaluation by your physician Discharge Instructions: - Discharge Summary Sheet toño - Fever, Adult toño - Aspirin and Your Heart toño - COVID-19 toño - COVID-19 Frequently Asked Questions [place] [id number] Things You Can Do to Manage Your COVID-19 Symptoms at Home - [facility] [place] toño - COVID-19: Quarantine vs. Isolation - [facility] Forms: - Medication Reconciliation Form toño - Thank You Letter toño - Antibiotic Education toño - Prescription Opioid Use [facility] - Work release form bd Prescriptions: - Pepcid 20 mg Oral Tablet - take 1 tablet by ORAL route every 12 hours for 15 days; 30 tablet; Refills: 0, toño Product Selection Permitted - Zithromax Z-Victor M 250 mg Oral Tablet - take 1 tablet by ORAL route as directed for 5 days Day 1 - take two (2) tablets toño one time. Day 2, 3, 4 , 5 take one (1) tablet once daily.; 6 tablet; Refills: 0, Product Selection Permitted Signatures: Dispatcher [employer] EDMS Elia Martinez MD MD cha Calderon, Audri RN RN aa5 Fabricio Selby RN RN bp Linda Briscoe RN RN ld1 Corrections: (The following items were deleted from the chart) 10:38 09:35 CORONAVIRUS+BRZ ordered. EDMS EDMS
--- NOTE | 2021-01-12 11:55 | ER ---
Nurse's Notes [facility] Name: Justin Smith Age: 30 yrs Sex: Male : 1990 Arrival Date: 01/12/2021 Time: 09:22 Bed 30 Private MD: Diagnosis: Coronavirus infection, unspecified;Fever, unspecified Presentation: 01/12 09:29 Chief complaint: Patient states: low grade fever up to 100.5*F and nausea since aa5 yesterday. Pt reports he is taking Cipro for a kidney stone. Coronavirus screen: chills, fever. Ebola Screen: Patient negative for fever greater than or equal to 101.5 degrees Fahrenheit, and additional compatible Ebola Virus Disease symptoms. Initial Sepsis Screen: Does the patient meet any 2 criteria? No. Patient's initial sepsis screen is negative. Does the patient have a suspected source of infection? No. Patient's initial sepsis screen is negative. Risk Assessment: Do you want to hurt yourself or someone else? Patient reports no desire to harm self or others. Onset of symptoms was December 2020. : Method Of Arrival: Ambulatory aa5 09:29 Acuity: IFEANYI 3 aa5 Triage Assessment: : General: Appears distressed, uncomfortable, Behavior is calm, cooperative, appropriate bp for age. Pain: Complains of pain in abdomen. EENT: No deficits noted. Neuro: Level of Consciousness is awake, alert, obeys commands, Oriented to Appropriate for age. Cardiovascular: No deficits noted. Respiratory: No deficits noted. GI: Reports nausea. : No signs and/or symptoms were reported regarding the genitourinary system. Derm: No deficits noted. Musculoskeletal: No deficits noted. Historical: - Allergies: : No Known Allergies; aa5 - PMHx: : Anxiety; Kidney stones; Migraine; aa5 - PSHx: : kidney stent; Lithotripsy; aa5 - Immunization history:: Client reports having NOT received the Covid vaccine. Flu vaccine is not up to date. - Social history:: Smoking status: Reported history of juuling and/or vaping. - Family history:: not pertinent. Screenin: Abuse screen: Denies threats or abuse. Denies injuries from another. Nutritional bp screening: No deficits noted. Tuberculosis screening: No symptoms or risk factors identified. Fall Risk None identified. Assessment: 09:30 General: SEE TRIAGE NOTE. bp 13:17 Reassessment: Patient appears in no apparent distress at this time. No changes from ld1 previously documented assessment. Patient and/or family updated on plan of care and expected duration. Pain level reassessed. Vital Signs: 09:29 BP 113 / 79; Pulse 85; Resp 18 S; Temp 99.0(O); Pulse Ox 99% on R/A; Weight 83.91 kg aa5 (R); Height 5 ft. 7 in. (170.18 cm) (R); 13:17 BP 127 / 82; Pulse 86; Resp 18; Pulse Ox 100% ; ld1 09:29 Body Mass Index 28.97 (83.91 kg, 170.18 cm) aa5 ED Course: 09:22 Patient arrived in ED. am2 09:29 Arm band placed on. aa5 09:30 Triage completed. aa5 09:30 Patient has correct armband on for positive identification. Bed in low position. Call bp light in reach. Side rails up X2. 09:31 Elia Martinez MD is Attending Physician. toño 09:43 Fabricio Selby, GASTON is Primary Nurse. bp 09:53 CT Stone Protocol In Process Unspecified. EDMS 10:15 Inserted saline lock: 20 gauge in right antecubital area, using aseptic technique. bp Blood collected. 11:57 Jon Shepherd MD is Referral Physician. toño 13:58 No provider procedures requiring assistance completed. IV discontinued, intact, ld1 bleeding controlled, No redness/swelling at site. Administered Medications: 10:15 Drug: NS 0.9% 1000 ml Route: IV; Rate: 1 bolus; Site: right antecubital; bp 10:15 Drug: Rocephin (cefTRIAXone) 1 grams Route: IV; Rate: per protocol; Site: right bp antecubital; 12:00 Drug: Zithromax (azithromycin) 500 mg Route: PO; bp 12:37 Follow up: Response: No adverse reaction ld1 12:00 Drug: Pepcid (famotidine) 40 mg Route: PO; bp 12:37 Follow up: Response: No adverse reaction ld1 12:00 Drug: Aspirin Chewable Tablet 162 mg Route: PO; bp 12:37 Follow up: Response: No adverse reaction ld1 12:37 Drug: REGEN-COV Dose Pack 120 mg/mL-120 mg/mL (EUA) 1 vials Route: IV; Rate: per ld1 protocol; Site: right antecubital; Outcome: 11:55 Discharge ordered by . toño 13:59 Discharged to home ambulatory. ld1 13:59 Condition: stable 13:59 Discharge instructions given to patient, Instructed on discharge instructions, follow up and referral plans. medication usage, Demonstrated understanding of instructions, follow-up care, medications, Prescriptions given X 2. 14:00 Patient left the ED. ld1 Signatures: Dispatcher [employer] EDMS Elia Martinez MD MD cha Calderon, Audri, RN RN aa5 Susy Arevalo am2 Fabricio Selby, RN RN Linda Kolb, GASTON RN ld1 Corrections: (The following items were deleted from the chart) 10:38 10:13 CORONAVIRUS+MR.LAB.MEHRANZ drawn and sent. bp ROBLEDONC
[2021-01-12] MEDS ORDERED: FAMOTIDINE 20 MG TAB ONE (12:31)
[2021-01-12] MEDS ORDERED: ASPIRIN EC 81 MG TAB PO ONE (12:31)
[2021-01-12] MEDS ORDERED: AZITHROMYCIN 250 MG TAB ONE (12:31)
[2021-01-12] MEDS ORDERED: NA CHLORIDE 0.9% 250 ML ONE (12:32)
[2021-01-12] MEDS ORDERED: CASIRIVIMAB/IMDEVIMAB 10 ML VIAL ONE (12:32)
[2021-01-12 14:16] VITALS: BP 127/82; O2SAT 100
[2021-01-12 14:17] VITALS: TEMP 99
== END 2021-01-12 14:00 | disposition home or self-care (01) ==
LOC: ER 09:18
DX: U07.1 COVID-19 (principal)
CPT/HCPCS: 36415; 74176; 76377; 80048; 80076; 81003; 83690; 85025; 87040; 87086; 87088; 96374; 96375; 99284; J0696; J7030; J7050; U0003